=== PATIENT | female | born 1940 | race Caucasian/White ===

== ENCOUNTER 2018-01-22 09:49 | Emergency (ER) | payer MEDICARE, OTHER ==
[~2018-01-22] VITALS: Ht 170.2 cm; Wt 59.0 kg
--- OUTSIDE RECORDS SUMMARY | 2018-01-22 09:52 | XMS REPORT | Clinical Summary ---
Author Author [facility] Organization [facility] Address Unknown Phone Unavailable Care Team Providers Care Concession Attendant Name Role Phone Dharmesh Rivera MD PCP Allergies Comments Active Allergy Reactions Severity Noted Date Adhesive Tape-Silicones 12/08/2016 Medications End Date Status Medication Sig Dispensed Refills Start Date Active amIODarone (PACERONE) 200 Take 200 mg 0 MG tablet by mouth daily. Active simvastatin (ZOCOR) 10 MG Take 10 mg by 0 tablet mouth nightly. Active levothyroxine (SYNTHROID, Take 75 mcg 0 LEVOXYL) 75 mcg tablet by mouth every morning. Active nisoldipine (SULAR) 20 MG Take 17 mg by 0 24 hr tablet mouth daily. Active estrogens, conjugated, Take 0.3 mg 0 (PREMARIN) 0.3 MG tablet by mouth daily. Take daily for 21 days then do not take for 7 days. Active omega-3 acid ethyl esters Take 1 g by 0 (LOVAZA) 1 gram capsule mouth 2 (two) times a day. Active aspirin (ECOTRIN) 81 MG Take 81 mg by 0 enteric coated tablet mouth daily. Active acetaminophen (TYLENOL) Take 650 mg 0 500 MG tablet by mouth every 6 (six) hours as needed for mild pain. Active calcium carbonate (TUMS) Chew 1 tablet 0 200 mg calcium (500 mg) daily. chewable tablet Active esomeprazole (NexIUM) 20 Take 20 mg by 0 MG capsule mouth daily before breakfast. Active mirabegron 25 mg tablet Take by mouth 0 extended release 24 hr as needed. 11/20/2017 Discontinued mirabegron 25 mg tablet Take by 0 extended release 24 hr mouth. 11/24/2017 Discontinued gluc basurto/chondro basurto A/vit Take 2 0 C/Mn (GLUCOSAMINE 1500 tablets by COMPLEX ORAL) mouth 2 (two) times a day. Status Hospital, Clinic, or Ordered Dose Route Frequency Start End Date Other Facility Date Administered Medication Ended methylPREDNISolone 80 mg IAtc once 08/27/19 acetate (DEPO-MEDROL) 18 8 injection 80 mgIndications: Pain of both hip joints Ended bupivacaine (MARCAINE) 10 mg inj once 08/27/19 0.5 % (5 mg/mL) injection 18 8 10 mgIndications: Pain of both hip joints Active Problems Problem Noted Date DDD (degenerative disc disease), lumbar 11/04/2017 Trochanteric bursitis of both hips 08/28/2017 Pain of both hip joints 08/28/2017 Encounters Care Team Description Date Type Specialty Praveen Man MD 12/15/2017 Anesthesia General Surgery Event Krzysztof Amrstrong Jr., MD STEROID INJECTION, BILATERAL HIPS 12/15/2017 Surgery General Surgery Krzysztof Armstrong Jr., MD 12/15/2017 Hospital General Surgery Encounter Krzysztof Armstrong Jr., MD 12/11/2017 Hospital Radiology Encounter Krzysztof Armstrong Jr., MD Pre-op testing (Primary Dx); Trochanteric bursitis of both hips; Pain of both hip joints; DDD (degenerative disc disease), lumbar 12/11/2017 Pre-Admit Pre-Admission Testing Testing Appointment Laly Boone MA 12/04/2017 Telephone Orthopedic Surgery Krzysztof Armstrong Jr., MD DDD (degenerative disc disease), lumbar (Primary Dx); Trochanteric bursitis of both hips 11/26/2017 Office Visit Orthopedic Surgery Krzysztof Armstrong Jr., MD Trochanteric bursitis of both hips; Pain of both hip joints; DDD (degenerative disc disease), lumbar 11/13/2017 Hospital Radiology Encounter Krzysztof Armstrong Jr., MD Trochanteric bursitis of both hips; Pain of both hip joints; DDD (degenerative disc disease), lumbar 11/13/2017 Hospital Radiology Encounter Krzysztof Armstrong Jr., MD Trochanteric bursitis of both hips (Primary Dx); Pain of both hip joints; DDD (degenerative disc disease), lumbar 11/04/2017 Office Visit Ortho Sports Medicine Krzysztof Armstrong Jr., MD Pain of both hip joints (Primary Dx); Trochanteric bursitis of both hips 08/26/2017 Office Visit Ortho Sports Medicine after 01/21/2017 Family History Medical History Relation Name Comments Cancer Father Hyperlipidemia Father Relation Name Status Comments Father Social History Date Tobacco Use Types Packs/Day Years Used Never Smoker Smokeless Tobacco: Never Used Alcohol Use Drinks/Week oz/Week Comments No Sex Assigned at Date Recorded Not on file Industry Job Start Date Occupation Not on file Not on file Not on file Travel End Travel History Travel Start No recent travel history available. Last Filed Vital Signs Time Taken Vital Sign Reading 12/15/2017 8:38 AM CDT Blood Pressure 147/68 12/15/2017 8:38 AM CDT Pulse 73 12/15/2017 8:38 AM CDT Temperature 36.4 C (97.6 F) 12/15/2017 8:38 AM CDT Respiratory Rate 18 12/15/2017 8:38 AM CDT Oxygen Saturation 99% - Inhaled Oxygen - Concentration 12/15/2017 6:04 AM CDT Weight 59.5 kg (131 lb 3.2 oz) 12/15/2017 6:04 AM CDT Height 170.2 cm (5' 7") 12/15/2017 6:04 AM CDT Body Mass Index 20.55 Plan of Treatment Health Maintenance Due Date Last Done Comments SHINGRIX VACCINE (1 of 2) 1989 ZOSTER VACCINE 1999 PNEUMOCOCCAL 2004 POLYSACCHARIDE VACCINE AGE 65 AND OVER PNEUMOCOCCAL-13 2004 INFLUENZA VACCINE 10/08/2017 Procedures Comments Procedure Name Priority Date/Time Associated Diagnosis XR HIPS BILATERAL 2 VIEWS Routine 12/15/2017 7:59 AM CDT OR [place] < 1 HOUR Routine 12/15/2017 7:59 AM CDT INJECTION, HIP 12/15/2017 Trochanteric bursitis 7:25 AM CDT OA (osteoarthritis) of hip Special Needs NEEDS FLUORO, FRACTURE TABLE ESTIMATED GFR STAT 12/15/2017 6:20 AM CDT COMPREHENSIVE METABOLIC STAT 12/15/2017 PANEL 6:20 AM CDT PARTIAL THROMBOPLASTIN STAT 12/15/2017 TIME (PTT) 6:20 AM CDT PROTHROMBIN TIME WITH INR STAT 12/15/2017 6:20 AM CDT XR CHEST 2 VW Routine 12/11/2017 Pre-op testing 10:12 AM CDT HC COMPLETE BLD COUNT Routine 12/11/2017 Pre-op testing W/AUTO DIFF 9:40 AM CDT ECG 12-LEAD Routine 12/11/2017 Pre-op testing 9:36 AM CDT [place] ARTHROCENTESIS Routine 11/26/2017 Trochanteric bursitis of ASPIR&/INJ MAJOR JT/BURSA 11:00 AM CDT both hips W/O US MRI LUMBAR SPINE WO Routine 11/13/2017 Trochanteric bursitis of CONTRAST 3:07 PM CDT both hips Pain of both hip joints DDD (degenerative disc disease), lumbar MRI PELVIS WO CONTRAST Routine 11/13/2017 Trochanteric bursitis of 2:41 PM CDT both hips Pain of both hip joints DDD (degenerative disc disease), lumbar XR PELVIS 1 OR 2 VW Routine 11/04/2017 Pain of both hip joints 3:41 PM CDT XR LUMBAR SPINE 2 OR 3 VW Routine 11/04/2017 DDD (degenerative disc 3:41 PM CDT disease), lumbar [place] ARTHROCENTESIS Routine 08/26/2017 Trochanteric bursitis of ASPIR&/INJ MAJOR JT/BURSA 11:00 AM CDT both hips W/O US after 01/21/2017 Results * XR Hips Bilateral 2 Views (12/15/2017 7:59 AM CDT) Narrative Performed At EXAMINATION:XR HIPS BILATERAL 2 VIEWS [facility] CLINICAL HISTORY:Not provided COMPARISON:None. IMPRESSION: 1.Fluoroscopic spot images of the hips demonstrate bilateral hip joint space contrast. Hip joint space narrowing and osteophytosis bilaterally is compatible with degenerative change. [id number] Procedure Note Hm Interface, Radiology Results Incoming - 12/15/2017 10:00 AM CDT EXAMINATION: XR HIPS BILATERAL 2 VIEWS CLINICAL HISTORY: Not provided COMPARISON: None. IMPRESSION: 1. Fluoroscopic spot images of the hips demonstrate bilateral hip joint space contrast. Hip joint space narrowing and osteophytosis bilaterally is compatible with degenerative change. [id number] Performing Organization Address [facility] Phone Number [facility] [address] [place] [address] * OR [place] < 1 Hour (12/15/2017 7:59 AM CDT) Narrative Performed At EXAMINATION:OR FL 1 HOUR [facility] C-arm fluoroscopy was requested in OR.FLUORO TIME 0:15 IMPRESSION: Separate operative report will be issued by the physician performing the procedure. [id number] Procedure Note Hm Interface, Radiology Results Incoming - 12/15/2017 9:32 AM CDT EXAMINATION: OR FL 1 HOUR C-arm fluoroscopy was requested in OR. FLUORO TIME 0:15 IMPRESSION: Separate operative report will be issued by the physician performing the procedure. [id number] Performing Organization Address [facility] Phone Number [facility] [address] [place] [address] * Estimated GFR (12/15/2017 6:20 AM CDT) Estimated GFR 48 (A) mL/min/1.73 m2 [facility] OF Comment: PATHOLOGY AND [employer]atergoryUnitsInte GENOMIC MEDICINE rpretation G1 >=90 Normal or high G2 60-89Mildly decreased [id number] Mildly to moderately decreased F4h15-89 Moderately to severely decreased G4 15-29Severely decreased G5 <15Kidney failure The eGFR was calculated using the Chronic Kidney Disease Epidemiology Collaboration (CKD-EPI) equation. Interpretation is based on recommendations of the National Kidney Foundation-Kidney Disease Outcomes Quality Initiative (NKF-KDOQI) published in 2014. Specimen Plasma specimen Performing Organization Address [facility] Phone Number [facility] [id number] [place] [address] [place] [address] PATHOLOGY AND GENOMIC MEDICINE * Partial thromboplastin time, activated (12/15/2017 6:20 AM CDT) PTT 28.7 23.0 - 36.0 sec [facility] OF Comment: PATHOLOGY AND PTT therapeutic range for GENOMIC MEDICINE unfractionated heparin is 61.0-112.0 seconds which corresponds to Anti-Xa 0.3-0.7 U/ml. Specimen Blood Performing Organization Address [facility]/Zipcode Phone [place] [address] [place] [address] PATHOLOGY AND [employer] [facility] * Prothrombin time with INR (12/15/2017 6:20 AM CDT) Prothrombin time 12.4 12.0 - 15.0 sec [facility] OF PATHOLOGY AND GENOMIC MEDICINE INR 0.9 [facility] OF Comment: PATHOLOGY AND The International Normalized GENOMIC MEDICINE Ratio (INR) is a therapeutic monitoring tool for patients who are stable on oral anticoagulant therapy. An INR of 2.0-3.0 is suggested for deep vein thrombosis/pulmonary embolism. Specimen Blood Performing Organization Address [facility]/Zipcode Phone Number [place] [address] [place] [address] PATHOLOGY AND GENOMIC MEDICINE * Comprehensive metabolic panel (12/15/2017 6:20 AM CDT) Sodium 145 135 - 148 mEq/L [facility] OF PATHOLOGY AND GENOMIC MEDICINE Potassium 4.2 3.5 - 5.0 mEq/L [facility] OF PATHOLOGY AND GENOMIC MEDICINE Chloride 107 98 - 112 mEq/L [facility] OF PATHOLOGY AND GENOMIC MEDICINE CO2 28 24 - 31 mEq/L [facility] OF PATHOLOGY AND GENOMIC MEDICINE Anion gap 10@ANIO 7 - 15 mEq/L [facility] OF PATHOLOGY AND GENOMIC MEDICINE BUN 23 8 - 23 mg/dL [facility] OF PATHOLOGY AND GENOMIC MEDICINE Creatinine 1.10 (H) 0.50 - 0.90 mg/dL [facility] PATHOLOGY AND GENOMIC MEDICINE Glucose 98 65 - 99 mg/dL [facility] OF PATHOLOGY AND GENOMIC MEDICINE Calcium 10.3 (H) 8.8 - 10.2 mg/dL [facility] OF PATHOLOGY AND GENOMIC MEDICINE Protein 7.0 6.3 - 8.3 g/dL [facility] OF Comment: PATHOLOGY AND [place] GENOMIC MEDICINE 4.6-7.0 g/dL 1 week 4.4-7.6 g/dL 7 months-1year 5.1-7.3 g/dL 1-2 years5.6-7 .5 g/dL >3 years6.0-8 .0 g/dL 18-150 6.3-8.3 g/dL Albumin 4.3 3.5 - 5.0 g/dL [facility] OF PATHOLOGY AND GENOMIC MEDICINE A/G ratio 1.6 0.7 - 3.8 [facility] PATHOLOGY AND GENOMIC MEDICINE Alkaline phosphatase 41 35 - 104 U/L [facility] PATHOLOGY AND GENOMIC MEDICINE AST 20 10 - 35 U/L [facility] OF PATHOLOGY AND GENOMIC MEDICINE ALT 11 5 - 50 U/L [facility] OF PATHOLOGY AND GENOMIC MEDICINE Total bilirubin 0.3 0.0 - 1.2 mg/dL [facility] OF PATHOLOGY AND GENOMIC MEDICINE Specimen Plasma specimen Performing Organization Address [facility] Phone Number [address] [place] [address] PATHOLOGY AND GENOMIC MEDICINE * XR Chest 2 Vw (12/11/2017 10:12 AM CDT) Narrative Performed At EXAMINATION:XR CHEST 2 VW [facility] CLINICAL HISTORY:Z01.818 Encounter for other preprocedural examination, pre op COMPARISON:None IMPRESSION: No acute abnormality 2 view chest The lungs are clear. The heart is not enlarged. Minimal vascular ectasia. Atherosclerosis The bony structures are within normal limits. [id number] Procedure Note Interface, Radiology Results Incoming - 12/11/2017 10:35 AM CDT EXAMINATION: XR CHEST 2 VW CLINICAL HISTORY: Z01.818 Encounter for other preprocedural examination, pre op COMPARISON: None IMPRESSION: No acute abnormality 2 view chest The lungs are clear. The heart is not enlarged. Minimal vascular ectasia. Atherosclerosis The bony structures are within normal limits. [id number] Performing Organization Address City/[facility]/Zipcode Phone Number [facility] [address] [place] [address] * CBC with platelet and differential (12/11/2017 9:40 AM CDT) WBC 6.09 4.50 - 11.00 k/uL [facility] OF PATHOLOGY AND GENOMIC MEDICINE RBC 3.63 (L) 4.20 - 5.50 m/uL [facility] OF PATHOLOGY AND GENOMIC MEDICINE HGB 10.8 (L) 12.0 - 16.0 g/dL [facility] OF PATHOLOGY AND GENOMIC MEDICINE HCT 33.6 (L) 37.0 - 47.0 % [facility] OF PATHOLOGY AND GENOMIC MEDICINE MCV 92.6 82.0 - 100.0 fL [facility] OF PATHOLOGY AND GENOMIC MEDICINE MCH 29.8 27.0 - 34.0 pg [facility] OF PATHOLOGY AND GENOMIC MEDICINE MCHC 32.1 31.0 - 37.0 g/dL [facility] OF PATHOLOGY AND GENOMIC MEDICINE RDW - SD 47.3 37.0 - 55.0 fL [facility] OF PATHOLOGY AND GENOMIC MEDICINE MPV 9.4 8.8 - 13.2 fL [facility] OF PATHOLOGY AND GENOMIC MEDICINE Platelet count 339 150 - 400 k/uL [facility] OF PATHOLOGY AND GENOMIC MEDICINE Nucleated RBC 0.00 /100 WBC [facility] OF PATHOLOGY AND GENOMIC MEDICINE Neutrophils 62.7 39.0 - 69.0 % [facility] OF PATHOLOGY AND GENOMIC MEDICINE Lymphocytes 22.0 (L) 25.0 - 45.0 % [facility] OF PATHOLOGY AND GENOMIC MEDICINE Monocytes 9.5 0.0 - 10.0 % [facility] PATHOLOGY AND GENOMIC MEDICINE Eosinophils 4.4 0.0 - 5.0 % [facility] PATHOLOGY AND GENOMIC MEDICINE Basophils 1.1 (H) 0.0 - 1.0 % [facility] OF PATHOLOGY AND GENOMIC MEDICINE Specimen Blood Performing Organization Address City/State/Zipcode Phone Number [facility] [address] [place] [address] PATHOLOGY AND GENOMIC MEDICINE * ECG 12 lead (12/11/2017 9:36 AM CDT) Ventricular rate 64 [facility] Atrial rate 64 [facility] IL interval 200 [facility] QRSD interval 160 [facility] QT interval 450 [facility] QTC interval 464 [facility] P axis 1 76 [facility] QRS axis 1 86 [facility] T wave axis 7 [facility] EKG impression Normal sinus rhythm-Right [facility] bundle branch block-Septal infarct , age undetermined-T wave abnormality, consider inferior ischemia-Abnormal ECG-No previous ECGs available- Performing Organization Address City/State/Zipcode Phone Number [facility] [address] [place] [address] * Large Joint Arthrocentesis (11/26/2017 11:00 AM CDT) Narrative Performed At Krzysztof Armstrong Jr., MD 12/08/20177:10 PM Large Joint Arthrocentesis Consent given by: patient Site marked: site marked Timeout: Immediately prior to procedure a time out was called to verify the correct patient, procedure, equipment, contracting support specialist and site/side marked as required Supporting Documentation Indications: pain Procedure Details Preparation: Patient was prepped and draped in the usual sterile fashion Location: hip - Bilateral greater trochanteric bursa Right side: Needle size: 22 G Approach: lateral Right hip medications administered: 40 mg methylPREDNISolone acetate 40 mg/mL; 1 mL bupivacaine 0.5 % (5 mg/mL) Patient tolerance: patient tolerated the procedure well with no immediate complications Left side: Needle size: 22 G Approach: lateral Left hip medications administered: 40 mg methylPREDNISolone acetate 40 mg/mL; 1 mL bupivacaine 0.5 % (5 mg/mL) Patient tolerance: patient tolerated the procedure well with no immediate complications * MRI Lumbar Spine Wo Contrast (11/13/2017 3:07 PM CDT) Narrative Performed At EXAMINATION:MRI LUMBAR SPINE WO CONTRAST [facility] CLINICAL HISTORY:M70.61 Trochanteric bursitisright hip, M70.62 Trochanteric bursitisleft hip, hip pain bilateral COMPARISON:None. FINDINGS: There is a scoliosis of lumbar spine moderately severe in degree which is convex toward the left. Vertebral heights and signal are mostly preserved with mild compression of the L4 lower endplate to the right which appears to be result of the scoliosis. The conus medullaris and cauda equina are preserved. There is disc narrowing greatest at the L4-5 and L5-S1 level. Degenerative signal changes are present in the vertebral throughout the lumbar region. L1-2: The foramina are patent. The disc margin is smooth. The central canal and lateral recesses are preserved facets are moderately hypertrophic. L2-3: The neural foramina are patent bilaterally. The disc margin is smooth. Central canal and lateral recesses are maintained. Facets are markedly hypertrophic. L3-4: The foramina are patent bilaterally. There is a mild diffuse disc protrusion. The central canal and lateral recesses appear preserved there is gross dorsal facet and ligamentous hypertrophy. L4-5: The foramina are patent although that to the left is narrowed peripherally by the scoliotic curve. There is a mild osteophytic ridge at this level with borderline central canal which measures approximately 11 to 12 mm. There is narrowing of the right lateral recess related to gross dorsal facet and ligamentous hypertrophy. The left lateral recess is narrowed as well to lesser degree. Facets are grossly hypertrophic. L5-S1: There is mild narrowing of the left foramen bilateral disc protrusion/osteophyte with a mild central disc protrusion as well. There is gross dorsal facet and ligamentous hypertrophy with narrowing of the lateral recesses greater to the left IMPRESSION: 1. Scoliosis of lumbar spine moderate degree convex to the left. 2. Disc narrowing at the L4-5 and L5-S1 levels. 3. Central and to the left protrusion at the L5-S1 level with narrowing of the foramen to the left at the L5-S1 level. 4. Borderline central canal and lateral recess narrowing greater to the right at the L4-5 level related to facet hypertrophy and a slightly asymmetric disc protrusion greater to the left . [id number] Procedure Note Hm Interface, Radiology Results Incoming - 11/13/2017 5:45 PM CDT EXAMINATION: MRI LUMBAR SPINE WO CONTRAST CLINICAL HISTORY: M70.61 Trochanteric bursitis right hip, M70.62 Trochanteric bursitis left hip, hip pain bilateral COMPARISON: None. FINDINGS: There is a scoliosis of lumbar spine moderately severe in degree which is convex toward the left. Vertebral heights and signal are mostly preserved with mild compression of the L4 lower endplate to the right which appears to be result of the scoliosis. The conus medullaris and cauda equina are preserved. There is disc narrowing greatest at the L4-5 and L5-S1 level. Degenerative signal changes are present in the vertebral throughout the lumbar region. L1-2: The foramina are patent. The disc margin is smooth. The central canal and lateral recesses are preserved facets are moderately hypertrophic. L2-3: The neural foramina are patent bilaterally. The disc margin is smooth. Central canal and lateral recesses are maintained. Facets are markedly hypertrophic. L3-4: The foramina are patent bilaterally. There is a mild diffuse disc protrusion. The central canal and lateral recesses appear preserved there is gross dorsal facet and ligamentous hypertrophy. L4-5: The foramina are patent although that to the left is narrowed peripherally by the scoliotic curve. There is a mild osteophytic ridge at this level with borderline central canal which measures approximately 11 to 12 mm. There is narrowing of the right lateral recess related to gross dorsal facet and ligamentous hypertrophy. The left lateral recess is narrowed as well to lesser degree. Facets are grossly hypertrophic. L5-S1: There is mild narrowing of the left foramen bilateral disc protrusion/osteophyte with a mild central disc protrusion as well. There is gross dorsal facet and ligamentous hypertrophy with narrowing of the lateral recesses greater to the left IMPRESSION: 1. Scoliosis of lumbar spine moderate degree convex to the left. 2. Disc narrowing at the L4-5 and L5-S1 levels. 3. Central and to the left protrusion at the L5-S1 level with narrowing of the foramen to the left at the L5-S1 level. 4. Borderline central canal and lateral recess narrowing greater to the right at the L4-5 level related to facet hypertrophy and a slightly asymmetric disc protrusion greater to the left . [id number] Performing Organization Address City/State/Zipcode Phone Number [facility] [address] [place] [address] * MRI Pelvis Wo Contrast (11/13/2017 2:41 PM CDT) Narrative Performed At EXAMINATION:MRI PELVIS WO CONTRAST [facility] CLINICAL HISTORY:M70.61 Trochanteric bursitisright hip, M70.62 Trochanteric bursitisleft hip, Hip pain TECHNIQUE: Multiplanar multisequence MR images of the pelvis were obtained without contrast. The lack of intravenous contrast reduces the sensitivity of the examination. COMPARISON:None. FINDINGS: The joint spaces are narrowed diffusely bilaterally this is fairly symmetric. There is no evidence of AVN or occult fracture or other acute bony findings. There is a small area of low signal on T1 and T2-weighted images at the base of the greater trochanter on the right and a mixed signal lesion just above the roof of the acetabulum in the ileum on the left. This latter lesion is also low signal on both T1 and T2-weighted images measuring approximately 7 to 8 mm. This is of uncertain significance. It is not readily visible on the AP pelvis done November 04, 2017 although may be vaguely sclerotic. There is a scoliosis of the lumbar spine Musculature: The gluteal muscles are moderately atrophic bilaterally. However this is symmetric. There is fraying and degenerative signal at the gluteus minimus and medius attachments to the greater trochanter of the femur that on the right slightly greater than that on the left. The adductor muscles demonstrate no focal findings on either side. The iliopsoas muscles and tendons appear intact to limits of visualization. Miscellaneous findings: There are bilateral small joint effusions which are symmetric. There is also a moderate amount of fluid in the trochanteric bursae greater on the left consistent with trochanteric bursitis in the proper clinical setting. No additional findings of significance are visualized. IMPRESSION: 1. Changes consistent with bilateral trochanteric bursitis with bilateral trochanteric bursal effusions slightly greater on the left. 2. Fraying of the gluteus minimus and medius at their greater trochanter attachments although no high-grade tear is noted on either side. 3. Moderately severe arthritic changes about both hips with fairly symmetric joint space narrowing mild osteophyte formation. 4. Small low signal lesion in the bony pelvis just cranial to the acetabular roof on the left in the 7 to 8 mm range and a tiny probable bone island in the right femur proximally a bone scan might be helpful in this patient [id number] Procedure Note Hm Interface, Radiology Results Incoming - 11/13/2017 5:57 PM CDT EXAMINATION: MRI PELVIS WO CONTRAST CLINICAL HISTORY: M70.61 Trochanteric bursitis right hip, M70.62 Trochanteric bursitis left hip, Hip pain TECHNIQUE: Multiplanar multisequence MR images of the pelvis were obtained without contrast. The lack of intravenous contrast reduces the sensitivity of the examination. COMPARISON: None. FINDINGS: The joint spaces are narrowed diffusely bilaterally this is fairly symmetric. There is no evidence of AVN or occult fracture or other acute bony findings. There is a small area of low signal on T1 and T2-weighted images at the base of the greater trochanter on the right and a mixed signal lesion just above the roof of the acetabulum in the ileum on the left. This latter lesion is also low signal on both T1 and T2-weighted images measuring approximately 7 to 8 mm. This is of uncertain significance. It is not readily visible on the AP pelvis done November 04, 2017 although may be vaguely sclerotic. There is a scoliosis of the lumbar spine Musculature: The gluteal muscles are moderately atrophic bilaterally. However this is symmetric. There is fraying and degenerative signal at the gluteus minimus and medius attachments to the greater trochanter of the femur that on the right slightly greater than that on the left. The adductor muscles demonstrate no focal findings on either side. The iliopsoas muscles and tendons appear intact to limits of visualization. Miscellaneous findings: There are bilateral small joint effusions which are symmetric. There is also a moderate amount of fluid in the trochanteric bursae greater on the left consistent with trochanteric bursitis in the proper clinical setting. No additional findings of significance are visualized. IMPRESSION: 1. Changes consistent with bilateral trochanteric bursitis with bilateral trochanteric bursal effusions slightly greater on the left. 2. Fraying of the gluteus minimus and medius at their greater trochanter attachments although no high-grade tear is noted on either side. 3. Moderately severe arthritic changes about both hips with fairly symmetric joint space narrowing mild osteophyte formation. 4. Small low signal lesion in the bony pelvis just cranial to the acetabular roof on the left in the 7 to 8 mm range and a tiny probable bone island in the right femur proximally a bone scan might be helpful in this patient [id number] Performing Organization Address [facility] Phone Number [facility] [address] [place] [address] * XR Pelvis 1 Or 2 Vw (11/04/2017 3:41 PM CDT) Narrative Performed At [facility] Clinical : hip pain Finding: AP pelvis weight bearing shows mild hip OA. Extensive degenerative scoliosis can be seen at the lowest segments of the lumbar spine. 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 Performing Organization Address [facility] Phone Number [facility] [address] [place] [address] * XR Lumbar Spine 2 Or 3 Vw (11/04/2017 3:41 PM CDT) Impressions Performed At Extensive changes in the lumbar spine at the above levels. [facility] Narrative Performed At [facility] CLINICAL: hip and back pain FINDINGS: AP and lateral views of the lumbar spine. The bones are intact. There is however irregularity at the superior endplate of L2 possibly old injury.Additionally there is narrowing at L3/4 which is minimal and L4/5 which is severe and near complete loss, and significant at L5/1.Facet OA noted as well. Performing Organization Address [facility] Phone Number [employer] [address] [place] [address] * Large Joint Arthrocentesis (08/26/2017 11:00 AM CDT) Narrative Performed At Krzysztof Armstrong Jr., MD 08/28/20176:14 PM Large Joint Arthrocentesis Consent given by: patient Site marked: site marked Timeout: Immediately prior to procedure a time out was called to verify the correct patient, procedure, equipment, contracting support specialist and site/side marked as required Supporting Documentation Indications: pain Procedure Details Preparation: Patient was prepped and draped in the usual sterile fashion Location: hip - Bilateral greater trochanteric bursa Right side: Needle size: 22 G Right hip medications administered: 40 mg methylPREDNISolone acetate 40 mg/mL; 1 mL bupivacaine 0.5 % (5 mg/mL) Patient tolerance: patient tolerated the procedure well with no immediate complications Left side: Needle size: 22 G Left hip medications administered: 40 mg methylPREDNISolone acetate 40 mg/mL; 1 mL bupivacaine 0.5 % (5 mg/mL) Patient tolerance: patient tolerated the procedure well with no immediate complications after 01/21/2017 Insurance Payer Benefit Subscriber ID Type Phone Address Plan / Group MEDICARE MEDICARE xxxxxxxxxx Medicare [place], [place] PART A AND B xxxxxxxxx-xx FOR LIFE Advance Directives Patient has advance care planning documents on file. For more information, aaron silva contact: Jaciel Melendrez [address] [place] [address]
[2018-01-22] MEDS ORDERED: ACETAMINOPHEN 325 MG TAB PO ONE (10:30)
[2018-01-22] MEDS ORDERED: AUGMENTIN 500-1 EACH PO (10:43)
--- NOTE | 2018-01-22 11:01 | Diagnostic Imaging Report ---
PROCEDURE:X-RAY LEFT HUMERUS, TWO OR MORE VIEWS COMPARISON:None. INDICATIONS:LEFT UPPER ARM PAIN FROM FALL FINDINGS: Mild osteopenia. No acute, displaced fracture or dislocation. No lytic or blastic lesion. Mild widening of the a.c. joint, which measures approximately 6-7 mm. Soft tissues are grossly unremarkable. Visualized portions of the left lung are clear. CONCLUSION: No acute displaced fracture or dislocation. Mild widening of the a.c. joint. Correlate for point tenderness. This may be normal, if bilateral. Contralateral shoulder views may be obtained for evaluation, if clinically indicated. Chris Hardwick M.D. Dictated by: Chris Hardwick M.D. on 01/22/2018 at 11:11 Electronically approved by: Chris Hardwick M.D. on 01/22/2018 at 11:11
--- NOTE | 2018-01-22 11:51 | Diagnostic Imaging Report ---
Exams: Head, maxillofacial and cervical spine CTs without IV contrast History: Trauma, fall Comparison studies: None Technique: Axial images were obtained to the vertex and through the cervical spine and maxilla facial region. Coronal and sagittal images reconstructed from the axial data. Dose modulation, iterative reconstruction, and/or weight based adjustment of the mA/kV was utilized to reduce the radiation dose to as low as reasonably achievable. Intravenous contrast: None Findings: Scalp: No abnormalities. Bones: No fractures, blastic or lytic lesions. Brain sulci: Mildly prominent but age appropriate.. Ventricles: Normal in size and configuration. No hydrocephalus. Parenchyma: No mass, acute hemorrhage or acute or chronic cortical vascular insults. A few scattered hypodensities in the supratentorial white matter are nonspecific but most compatible with chronic microvascular ischemic changes. Sellar/suprasellar region: No abnormalities Craniocervical junction: Patent foramen magnum. No Chiari one malformation. Maxillofacial CT: Soft tissues: Moderate hematoma in the left inferolateral premaxillary soft tissues. Mild reactive changes in the left retromaxillary soft tissues may reflect hematoma or possibly local Bones: A linear lucency along the anterolateral wall of the left maxillary sinus, may represent nondisplaced fracture versus prominent vascular channel. Incidental torus mandibularis. Orbits: Globes: Intact Extra or intraconal abnormalities: None. Paranasal sinuses: Chronic inflammatory changes in the left maxillary sinus which is nearly completely opacified and contains inspissated hyperdense secretions which are also partially calcified. 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 Cervical spine CT: Fractures: None. Soft tissue injuries: None. Atlantoaxial articulation: Intact with moderate degenerative changes. There is mild asymmetry of the lateral atlantal dental intervals which may be due to advanced degenerative changes. Alignment: Straightened cervical curvature. Approximately 3 mm anterolisthesis of C4 on C5 and 4 mm anterolisthesis of C6 on C7 which may be degenerative in etiology. Cervicomedullary junction: No abnormalities. The foramen magnum is patent. Soft tissues: No gross acute abnormalities. Vertebrae: No fractures, infection or neoplasm. Degenerative changes: Moderate degenerative changes at the atlantodental, left C1-C2 lateral mass and right atlantooccipital articulations Multilevel disc degeneration, moderate from C2 to C4 and severe from C4 to C7. Anterolisthesis of C4 on C5 with associated uncovered disc/disc osteophyte complex results in mild canal stenosis. Mild canal stenosis at C5-C6 due to a disc osteophyte complex measuring degrees of multilevel moderate to severe facet arthrosis. The left C2-C3 and right C3-C4 facets are fused. Multilevel uncovertebral facet arthrosis result in multilevel foraminal stenosis (mild right at C3-C4 moderate left and mild right at C4-C5, moderate bilaterally at C5-C6 in mild right at C6-C7). Incidental findings: Mild scarring at the lung apices. Atherosclerotic calcifications in the carotid siphons. Mild chronic inflammatory changes at the left mastoid tip. IMPRESSION: Head CT: 1. No acute abnormalities. 2. Mild age-appropriate generalized volume loss. 3. Mild microvascular ischemic changes. Maxillofacial CT: 1. Left mitchell-maxillary soft tissue tissue hematoma. 2. Lucency along the inferior lateral wall the left maxillary sinus may reflect prominent perivascular channel or less likely nondisplaced fracture. 3. Chronic inflammatory changes in the left maxillary sinus. Mild soft tissue changes in the left retromaxillary fat may reflect regional extension of soft tissue hematoma or changes related to sinus disease Cervical spine CT: 1. No cervical spine fracture. 2. Anterolisthesis of C4 on C5 and C6 on C7 are most likely degenerative in etiology. 3. Additional advanced degenerative changes as described. 4. Cannot adequately evaluate ligament, spinal cord and or vascular abnormalities on the basis of this exam. Signed by: Dr. Fortino Guerrero M.D. on 01/22/2018 11:47 AM
[2018-01-22] MEDS ORDERED: TYLENOL WITH C1 EACH PO (12:30)
[2018-01-22] MEDS ORDERED: ACETAMINOPHEN/CODEINE 300MG - 30MG TAB PO ONE (12:30)
[2018-01-22 12:58] VITALS: BP 150/85
[2018-02-11] MEDS ORDERED: PREMARIN0.625 MG PO (14:47)
[2018-02-11] MEDS ORDERED: PACERONE200 MG (14:47)
[2018-02-11] MEDS ORDERED: CALCIUM (14:47)
[2018-02-11] MEDS ORDERED: LOVAZA1 GM (14:47)
[2018-02-11] MEDS ORDERED: NEXIUM40 MG (14:47)
[2018-02-11] MEDS ORDERED: LEVOTHYROXINE75 MCG PO (14:47)
[2018-02-11] MEDS ORDERED: TYLENOL ARTHRITIS (14:47)
[2018-02-11] MEDS ORDERED: GLUCOSAMINE1000 MG (14:47)
[2018-02-11] MEDS ORDERED: NISOLDIPINE17 MG (14:47)
[2018-02-11] MEDS ORDERED: ASPIRIN81 MG (14:47)
[2018-02-11] MEDS ORDERED: PACERONE100 MG (14:47)
[2018-02-11] MEDS ORDERED: SIMVASTATIN20 MG PO (14:47)
== END 2018-01-22 13:00 | disposition home or self-care (01) ==
LOC: ER 09:49
DX: S01.511A Laceration without foreign body of lip, initial encounter (principal); S00.531A Contusion of lip, initial encounter; S00.12XA Contusion of left eyelid and periocular area, initial encounter; S40.022A Contusion of left upper arm, initial encounter; W01.0XXA Fall on same level from slipping, tripping and stumbling without subsequent striking against object, initial encounter; Y93.01 Activity, walking, marching and hiking; Y92.008 Other place in unspecified non-institutional (private) residence as the place of occurrence of the external cause; I10 Essential (primary) hypertension
CPT/HCPCS: 70450; 70486; 72125; 99283

== ENCOUNTER → 2018-02-17 | Day surgery (SDC) | payer MEDICARE, OTHER ==
[~2018-02-17] MED LIST: ASPIRIN81 MG; AUGMENTIN 500-1 EACH PO; CALCIUM; CEFAZOLIN SOD 1 GM/D5W 50ML 50 ML IV ONE; GLUCOSAMINE1000 MG; LEVOTHYROXINE75 MCG PO; LIDOCAINE 1% W/EPINEPHRINE 20 ML VIAL ONE; LIDOCAINE HCL 2% LOCAL INJ 5 ML SDV VIAL INJ ONE; LOVAZA1 GM; NEXIUM40 MG; NISOLDIPINE17 MG; PACERONE100 MG; PACERONE200 MG; PREMARIN0.625 MG PO; PROPOFOL IV EMULSION 10 MG/ML 20 ML VIAL ONE; SIMVASTATIN20 MG PO; TYLENOL ARTHRITIS; TYLENOL WITH C1 EACH PO
--- OUTSIDE RECORDS SUMMARY | 2018-02-17 07:53 | XMS REPORT | Clinical Summary ---
Author Author [facility] Address Unknown Phone Unavailable Care Team Providers Care Jar Capper Name Role Phone Dharmesh Rivera MD PCP [...] MD 12/15/2017 Anesthesia General Surgery Event Krzysztof Armstrong Jr., MD STEROID INJECTION, BILATERAL HIPS 12/15/2017 [...] 08/26/2017 Office Visit Ortho Sports Medicine after 02/16/2017 Family History Medical History Relation Name Comments [...] Routine 12/11/2017 Pre-op testing 9:36 AM CDT MD ARTHROCENTESIS Routine 11/26/2017 Trochanteric bursitis of ASPIR&/INJ [...] (degenerative disc 3:41 PM CDT disease), lumbar MD ARTHROCENTESIS Routine 08/26/2017 Trochanteric bursitis of ASPIR&/INJ MAJOR JT/BURSA 11:00 AM CDT both hips W/O US after 02/16/2017 Results * XR Hips Bilateral 2 Views (12/15/2017 7:59 AM CDT) Narrative Performed At EXAMINATION:XR HIPS BILATERAL 2 VIEWS HM [facility] CLINICAL HISTORY:Not provided COMPARISON:None. IMPRESSION: 1.Fluoroscopic spot images of the hips demonstrate bilateral hip joint space contrast. Hip joint space narrowing and osteophytosis bilaterally is compatible with degenerative change. [id number] Procedure Note Hm Interface, Radiology Results Incoming - 12/15/2017 10:00 AM CDT EXAMINATION: XR HIPS BILATERAL 2 VIEWS CLINICAL HISTORY: Not provided COMPARISON: None. IMPRESSION: 1. Fluoroscopic spot images of the hips demonstrate bilateral hip joint space contrast. Hip joint space narrowing and osteophytosis bilaterally is compatible with degenerative change. [id number] Performing Organization Address [facility] Phone Number [facility] [address] [place] [address] * OR [place] < 1 Hour (12/15/2017 [...] performing the procedure. [id number] Performing Organization Address [facility] Phone Number [facility] [address] [place] [address] * Estimated GFR (12/15/2017 6:20 AM CDT) Estimated GFR 48 (A) mL/min/1.73 m2 [facility] DEPARTMENT OF Comment: PATHOLOGY AND CatergoryUnitsInte GENOMIC MEDICINE rpretation G1 >=90 Normal or high G2 60-89Mildly decreased O6z02-45 Mildly to moderately decreased G3n89-32 Moderately to severely decreased G4 15-29Severely decreased G5 <15Kidney failure The eGFR was calculated using the Chronic Kidney Disease Epidemiology Collaboration (CKD-EPI) equation. Interpretation is based on recommendations of the National Kidney Foundation-Kidney Disease Outcomes Quality Initiative (NKF-KDOQI) published in 2014. Specimen Plasma specimen Performing Organization Address [facility] Phone Number [facility] DEPARTMENT [id number] [place] [address] [place] [address] PATHOLOGY AND GENOMIC MEDICINE * Partial thromboplastin time, activated (12/15/2017 6:20 AM CDT) PTT 28.7 23.0 - 36.0 sec [facility] DEPARTMENT OF Comment: PATHOLOGY AND PTT therapeutic range for GENOMIC MEDICINE unfractionated heparin is 61.0-112.0 seconds which corresponds to Anti-Xa 0.3-0.7 U/ml. Specimen Blood Performing Organization Address [facility]/Zipcode Phone Number [facility] [place] [address] [place] [address] PATHOLOGY AND [employer] [facility] * Prothrombin time with INR (12/15/2017 6:20 AM CDT) Prothrombin time 12.4 12.0 - 15.0 sec [facility] DEPARTMENT OF PATHOLOGY AND GENOMIC MEDICINE INR 0.9 [facility] DEPARTMENT OF Comment: PATHOLOGY AND The International Normalized GENOMIC MEDICINE Ratio (INR) is a therapeutic monitoring tool for patients who are stable on oral anticoagulant therapy. An INR of 2.0-3.0 is suggested for deep vein thrombosis/pulmonary embolism. Specimen Blood Performing Organization Address [facility]/Zipcode Phone Number [place] [address] [place] [address] PATHOLOGY AND GENOMIC MEDICINE * Comprehensive metabolic panel (12/15/2017 6:20 AM CDT) Sodium 145 135 - 148 mEq/L [facility] DEPARTMENT OF PATHOLOGY AND GENOMIC MEDICINE Potassium 4.2 3.5 - 5.0 mEq/L [facility] DEPARTMENT OF PATHOLOGY AND GENOMIC MEDICINE Chloride 107 98 - 112 mEq/L [facility] DEPARTMENT OF PATHOLOGY AND GENOMIC MEDICINE CO2 28 24 - 31 mEq/L [facility] DEPARTMENT OF PATHOLOGY AND GENOMIC MEDICINE Anion gap 10@ANIO 7 - 15 mEq/L [facility] DEPARTMENT OF PATHOLOGY AND GENOMIC MEDICINE BUN 23 8 - 23 mg/dL [facility] DEPARTMENT OF PATHOLOGY AND GENOMIC MEDICINE Creatinine 1.10 (H) 0.50 - 0.90 mg/dL [facility] DEPARTMENT OF PATHOLOGY AND GENOMIC MEDICINE Glucose 98 65 - 99 mg/dL [facility] DEPARTMENT OF PATHOLOGY AND GENOMIC MEDICINE Calcium 10.3 (H) 8.8 - 10.2 mg/dL [facility] DEPARTMENT OF PATHOLOGY AND GENOMIC MEDICINE Protein 7.0 6.3 - 8.3 g/dL [facility] DEPARTMENT OF Comment: PATHOLOGY AND [place] GENOMIC MEDICINE 4.6-7.0 g/dL 1 week 4.4-7.6 g/dL 7 months-1year 5.1-7.3 g/dL 1-2 years5.6-7 .5 g/dL >3 years6.0-8 .0 g/dL 18-150 6.3-8.3 g/dL Albumin 4.3 3.5 - 5.0 g/dL [facility] DEPARTMENT OF PATHOLOGY AND GENOMIC MEDICINE A/G ratio 1.6 0.7 - 3.8 [facility] DEPARTMENT OF PATHOLOGY AND GENOMIC MEDICINE Alkaline phosphatase 41 35 - 104 U/L [facility] DEPARTMENT OF PATHOLOGY AND GENOMIC MEDICINE AST 20 10 - 35 U/L [facility] DEPARTMENT OF PATHOLOGY AND GENOMIC MEDICINE ALT 11 5 - 50 U/L [facility] DEPARTMENT OF PATHOLOGY AND GENOMIC MEDICINE Total bilirubin 0.3 0.0 - 1.2 mg/dL [facility] DEPARTMENT OF PATHOLOGY AND GENOMIC MEDICINE Specimen Plasma specimen Performing Organization Address City/[facility] Phone Number [address] [place] [address] PATHOLOGY AND GENOMIC MEDICINE * XR Chest 2 Vw (12/11/2017 10:12 AM CDT) Narrative Performed At EXAMINATION:XR CHEST 2 VW [facility] CLINICAL HISTORY:Z01.818 Encounter for other preprocedural examination, pre op COMPARISON:None IMPRESSION: No acute abnormality 2 view chest The lungs are clear. The heart is not enlarged. Minimal vascular ectasia. Atherosclerosis The bony structures are within normal limits. [id number] Procedure Note Interface, Radiology Results Incoming - 12/11/2017 10:35 AM CDT EXAMINATION: XR CHEST 2 VW CLINICAL HISTORY: Z01.818 Encounter for other preprocedural examination, pre op COMPARISON: None IMPRESSION: No acute abnormality 2 view chest The lungs are clear. The heart is not enlarged. Minimal vascular ectasia. Atherosclerosis The bony structures are within normal limits. [id number] Performing Organization Address City/[facility]/Zipcode Phone Number [facility] [address] [place] [address] * CBC with platelet and differential (12/11/2017 9:40 AM CDT) WBC 6.09 4.50 - 11.00 k/uL [facility] DEPARTMENT OF PATHOLOGY AND GENOMIC MEDICINE RBC 3.63 (L) 4.20 - 5.50 m/uL [facility] DEPARTMENT OF PATHOLOGY AND GENOMIC MEDICINE HGB 10.8 (L) 12.0 - 16.0 g/dL [facility] DEPARTMENT OF PATHOLOGY AND GENOMIC MEDICINE HCT 33.6 (L) 37.0 - 47.0 % [facility] DEPARTMENT OF PATHOLOGY AND GENOMIC MEDICINE MCV 92.6 82.0 - 100.0 fL [facility] DEPARTMENT OF PATHOLOGY AND GENOMIC MEDICINE MCH 29.8 27.0 - 34.0 pg [facility] DEPARTMENT OF PATHOLOGY AND GENOMIC MEDICINE MCHC 32.1 31.0 - 37.0 g/dL [facility] DEPARTMENT OF PATHOLOGY AND GENOMIC MEDICINE RDW - SD 47.3 37.0 - 55.0 fL [facility] OF PATHOLOGY AND GENOMIC MEDICINE MPV 9.4 8.8 - 13.2 fL [facility] DEPARTMENT OF PATHOLOGY AND GENOMIC MEDICINE Platelet count 339 150 - 400 k/uL [facility] DEPARTMENT OF PATHOLOGY AND GENOMIC MEDICINE Nucleated RBC 0.00 /100 WBC [facility] DEPARTMENT OF PATHOLOGY AND GENOMIC MEDICINE Neutrophils 62.7 39.0 - 69.0 % [facility] DEPARTMENT OF PATHOLOGY AND GENOMIC MEDICINE Lymphocytes 22.0 (L) 25.0 - 45.0 % [facility] DEPARTMENT OF PATHOLOGY AND GENOMIC MEDICINE Monocytes 9.5 0.0 - 10.0 % [facility] DEPARTMENT OF PATHOLOGY AND GENOMIC MEDICINE Eosinophils 4.4 0.0 - 5.0 % [facility] DEPARTMENT OF PATHOLOGY AND GENOMIC MEDICINE Basophils 1.1 (H) 0.0 - 1.0 % [facility] DEPARTMENT OF PATHOLOGY AND GENOMIC MEDICINE Specimen Blood Performing Organization Address City/State/Zipcode Phone Number [facility] [address] [place] [address] PATHOLOGY AND GENOMIC MEDICINE * ECG 12 lead (12/11/2017 9:36 AM CDT) Ventricular rate 64 [facility] Atrial rate 64 [facility] MD interval 200 [facility] QRSD interval 160 [...] available- Performing Organization Address City/State/Zipcode Phone Number [facility] [address] [place] [address] * Large Joint Arthrocentesis (11/26/2017 11:00 AM CDT) Narrative Performed At Krzysztof Armstrong Jr., MD 12/08/20177:10 PM Large Joint Arthrocentesis Consent given by: patient Site marked: site marked Timeout: Immediately prior to procedure a time out was called to verify the correct patient, procedure, equipment, decision support manager and site/side marked as required Supporting Documentation [...] disc protrusion greater to the left . [id number] Procedure Note Hm Interface, Radiology Results Incoming [...] disc protrusion greater to the left . [id number] Performing Organization Address City/State/Zipcode Phone Number [facility] [address] [place] [address] * MRI Pelvis Wo Contrast (11/13/2017 2:41 [...] scan might be helpful in this patient [id number] Procedure Note Hm Interface, Radiology Results Incoming [...] scan might be helpful in this patient [id number] Performing Organization Address [facility] Phone Number [employer] [address] [place] [address] * XR Pelvis 1 Or 2 Vw (11/04/2017 3:41 PM CDT) [facility]arrative [facility] Clinical : hip pain Finding: AP pelvis weight bearing shows mild hip OA. Extensive degenerative scoliosis can be seen at the lowest segments of the lumbar spine. 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 Performing Organization Address [facility] Phone Number [facility] [address] [place] [address] * XR Lumbar Spine 2 Or 3 [...] OA noted as well. Performing Organization Address [facility] Hospital[facility] Phone Number [employer] [address] [place] [address] * Large Joint Arthrocentesis (08/26/2017 11:00 AM CDT) Narrative Performed At Krzysztof Armstrong Jr., MD 08/28/20176:14 PM Large Joint Arthrocentesis Consent given by: patient Site marked: site marked Timeout: Immediately prior to procedure a time out was called to verify the correct patient, procedure, equipment, decision support manager and site/side marked as required Supporting Documentation [...] procedure well with no immediate complications after 02/16/2017 Insurance Payer Benefit Subscriber ID Type Phone Address Plan / Group MEDICARE MEDICARE xxxxxxxxxx Medicare [place], [place] PART A AND B xxxxxxxxx-xx FOR LIFE Advance Directives Patient has advance care planning documents on file. For more information, aaron silva contact: Jaciel Melendrez [address] [place] [address]
--- OUTSIDE RECORDS SUMMARY | 2018-02-17 07:54 | XMS REPORT | Summary of Care ---
Author Author [facility] Organization [facility] Address Unknown Phone Unavailable Encounter HQ Vanessa(FIN) [id number] Date(s): 04/09/16 - 05/08/16 [facility] [address] [place] [address]- Discharge Disposition: Home or Self Care Attending Physician: Rhiannon Salazar MD Referring Physician: Rhiannon Salazar MD Vital Signs No data available for this section Problem List Condition Effective Dates Status Health Status Informant Cardiac dysrhythmia, Resolved unspecified(Confirme d) Chronic Active anemia(Confirmed) Fecal Resolved incontinence(Confirm ed) Myelodysplastic Resolved syndrome(Confirmed) Rectocele(Confirmed) Resolved Ventricular Resolved tachycardia(Confirme d) Allergies, Adverse Reactions, Alerts Substance Reaction Severity Status codeine hallucination Active Tape breaks skin Active Medications Procrit 40,000 unit, 2 mL, Route: SUB-Q, Drug form: INJ, ONCALL, Start date: 04/16/16 9: 30:00 HAND SIZER, Duration: 12 hr, Stop date: 04/16/16 21:29:00 HAND SIZER Notes: (Same as: Procrit) Procrit 20,000 unit/ml VL. For non-dialysis use in a dult only.WASTE: F/P - Red; E -Red To be used in dialysis for children; Contai ns different preservative. Start Date: 04/16/16 Stop Date: 04/17/16 Status: Deleted Procrit 40,000 unit, 1 mL, Route: SUB-Q, Drug form: INJ, ONCALL, Start date: 04/09/16 9: 30:00 HAND SIZER, Duration: 1 day, Stop date: 04/10/16 9:29:00 HAND SIZER Notes: (Same as: Procrit) epoetin madeline [address]07[address] unit/1 ml VL.For non-dialysis use o nly. MEDICATION WASTE Product Size: [id number] unitProduct Wasted: ___ unit Start Date: 04/09/16 Stop Date: 04/09/16 Status: Deleted Results No data available for this section Immunizations No data available for this section Procedures Procedure Date Related Diagnosis Body Site Rotator cuff repair 03/10/09 Hysterectomy 03/10/74 Repair of rectocele Social History Social History Type Response Alcohol Current, Previous treatment: None. Smoking Status Never smoker; Exposure to Tobacco Smoke None; Cigarette Smoking Last 365 Days No; Reg Smoking Cessation Counseling No Assessment and Plan No data available for this section
--- OUTSIDE RECORDS SUMMARY | 2018-02-17 07:54 | XMS REPORT ---
Author [facility] Address Unknown Phone Unavailable Care Team Providers Care [employer] Biology Specialist Name Role Phone SMITH CASTRO Unavailable Unavailable Howard LUEVANO Unavailable Unavailable Payers Payer Name Policy Type Policy Number Effective Date Expiration Date Problems This patient has no known problems. Allergies, Adverse Reactions, Alerts Allergy Name Allergy Type Status Severity Reaction(s) Onset Date Inactive Date Treating Clinician Comments codeine DA Active [facility] 2016-12-08 00:00:00 adhesive tape DA Active [facility] 2016-12-08 00:00:00 Medications This patient has no known medications. Results Test Description Test Time Test Comments Text Results Atomic Results Result Comments CHEST 2 VIEWS 2018-02-11 14:57:00 [facility] [address] [place] [address] Patient Name: DENNIS SCHNEIDER MR #: [id number] : 1940 Age/Sex: 77/F Req #: [id number] [facility] Physician: Ordered by: SMITH CASTRO MD Report #: [id number] Location: OR Room/Bed: Procedure: [id number] DX/CHEST 2 VIEWS Exam Date: 02/11/18 Exam Time: 1445 REPORT STATUS: Signed EXAM: XR CHEST 2 VIEWS DATE: 02/11/2018 2:38 PM INDICATION: Preoperative, hematoma COMPARISON: None FINDINGS: Lines and Tubes: None Heart and Mediastinum: No acute cardiomediastinal findings. Lungs and Pleura: Ill-defined basilar opacities, most notably medial right lung base, likely combination of atelectasis and vascular structures. Bones and Soft Tissues: Surgical anchors right humeral head. IMPRESSION: 1. No acute cardiopulmonary findings. Signed by: Dr. Luiz Burns MD on 02/11/2018 2:59 PM Dictated By: LUIZ BURNS MD 58 Transcribed By: MAVIS on 02/11/181458 COPY TO: SMITH CASTRO MD CT MAXIO FAC/PARANAS WO 2018-01-22 11:17:00 [place] [address] Patient Name: DENNIS SCHNEIDER MR #: [id number] : 1940 Age/Sex: 77/F Req #: [id number] Adm Physician: Ordered by: DAYTON SOTO NP Report #: [id number] Location: ER Room/Bed: Procedure: [id number] CT/CT MAXIO FAC/PARANAS WO Exam Date: 01/22/18 Exam Time: 1030 REPORT STATUS: Signed Exams: Head, maxillofacial and cervical spine CTs without IV contrast History: Trauma, fall Comparison studies: None Technique: Axial images were obtained to the vertex and through the cervical spine and maxilla facial region. Coronal and sagittal images reconstructed from the axial data. Dose modulation, iterative reconstruction, and/or weight based adjustment of the mA/kV was utilized to reduce the radiation dose to as low as reasonably achievable. Intravenous contrast: None Findings: Scalp: No abnormalities. Bones: No fractures, blastic or lytic lesions. Brain sulci: Mildly prominent but age appropriate.. Ventricles: Normal in size and configuration. No hydrocephalus. Parenchyma: No mass, acute hemorrhage or acute or chronic cortical vascular insults. A few scattered hypodensities in the supratentorial white matter are nonspecific but most compatible with chronic microvascular ischemic changes. Sellar/suprasellar region: No abnormalities Craniocervical junction: Patent foramen magnum. No Chiari one malformation. Maxillofacial CT: Soft tissues: Moderate hematoma in the left inferolateral premaxillary soft tissues. Mild reactive changes in the left retromaxillary soft tissues may reflect hematoma or possibly local Bones: A linear lucency along the anterolateral wall of the left maxillary sinus, may represent nondisplaced fracture versus prominent vascular channel. Incidental torus mandibularis. Orbits: Globes: Intact Extra or intraconal abnormalities: None. Paranasal sinuses: Chronic inflammatory changes in the left maxillary sinus which is nearly completely opacified and contains inspissated hyperdense secretions which are also partially calcified. 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 Cervical spine CT: Fractures: None. Soft tissue injuries: None. Atlantoaxial articulation: Intact with moderate degenerative changes. There is mild asymmetry of the lateral atlantal dental intervals which may be due to advanced degenerative changes. Alignment: Straightened cervical curvature. Approximately 3 mm anterolisthesis of C4 on C5 and 4 mm anterolisthesis of C6 on C7 which may be degenerative in etiology. Cervicomedullary junction: No abnormalities. The foramen magnum is patent. Soft tissues: No gross acute abnormalities. Vertebrae: No fractures, infection or neoplasm. Degenerative changes: Moderate degenerative changes at the atlantodental, left C1-C2 lateral mass and right atlantooccipital articulations Multilevel disc degeneration, moderate from C2 to C4 and severe from C4 to C7. Anterolisthesis of C4 on C5 with associated uncovered disc/disc osteophyte complex results in mild canal stenosis. Mild canal stenosis at C5-C6 due to a disc osteophyte complex measuring degrees of multilevel moderate to severe facet arthrosis. The left C2-C3 and right C3-C4 facets are fused. Multilevel uncovertebral facet arthrosis result in multilevel foraminal stenosis (mild right at C3-C4 moderate left and mild right at C4-C5, moderate bilaterally at C5-C6 in mild right at C6-C7). Incidental findings: Mild scarring at the lung apices. Atherosclerotic calcifications in the carotid siphons. Mild chronic inflammatory changes at the left mastoid tip. IMPRESSION: Head CT: 1. No acute abnormalities. 2. Mild age-appropriate generalized volume loss. 3. Mild microvascular ischemic changes. Maxillofacial CT: 1. Left mitchell-maxillary soft tissue tissue hematoma. 2. Lucency along the inferior lateral wall the left maxillary sinus may reflect prominent perivascular channel or less likely nondisplaced fracture. 3. Chronic inflammatory changes in the left maxillary sinus. Mild soft tissue changes in the left retromaxillary fat may reflect regional extension of soft tissue hematoma or changes related to sinus disease Cervical spine CT: 1. No cervical spine fracture. 2. Anterolisthesis of C4 on C5 and C6 on C7 are most likely degenerative in etiology. 3. Additional advanced degenerative changes as described. 4. Cannot adequately evaluate ligament, spinal cord and or vascular abnormalities on the basis of this exam. Signed by: Dr. Noemi Guerrero M.D. on 01/22/2018 11:47 AM Dictated By: NOEMI GUERRERO MD 1147 Transcribed By: MAVIS on 01/22/18 1147 COPY TO: DAYTON SOTO NP CT CERVICAL SPINE WO 2018-01-22 11:17:00 [place] [address] Patient Name: DENNIS SCHNEIDER MR #: [id number] : 1940 Age/Sex: 77/F Req #: [id number] Adm Physician: Ordered by: DAYTON SOTO NP Report #: [id number] Location: ER Room/Bed: Procedure: [id number] CT/CT CERVICAL SPINE WO Exam Date: 01/22/18 Exam Time: 1030 REPORT STATUS: Signed Exams: Head, maxillofacial and cervical spine CTs without IV contrast History: Trauma, fall Comparison studies: None Technique: Axial images were obtained to the vertex and through the cervical spine and maxilla facial region. Coronal and sagittal images reconstructed from the axial data. Dose modulation, iterative reconstruction, and/or weight based adjustment of the mA/kV was utilized to reduce the radiation dose to as low as reasonably achievable. Intravenous contrast: None Findings: Scalp: No abnormalities. Bones: No fractures, blastic or lytic lesions. Brain sulci: Mildly prominent but age appropriate.. Ventricles: Normal in size and configuration. No hydrocephalus. Parenchyma: No mass, acute hemorrhage or acute or chronic cortical vascular insults. A few scattered hypodensities in the supratentorial white matter are nonspecific but most compatible with chronic microvascular ischemic changes. Sellar/suprasellar region: No abnormalities Craniocervical junction: Patent foramen magnum. No Chiari one malformation. Maxillofacial CT: Soft tissues: Moderate hematoma in the left inferolateral premaxillary soft tissues. Mild reactive changes in the left retromaxillary soft tissues may reflect hematoma or possibly local Bones: A linear lucency along the anterolateral wall of the left maxillary sinus, may represent nondisplaced fracture versus prominent vascular channel. Incidental torus mandibularis. Orbits: Globes: Intact Extra or intraconal abnormalities: None. Paranasal sinuses: Chronic inflammatory changes in the left maxillary sinus which is nearly completely opacified and contains inspissated hyperdense secretions which are also partially calcified. 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 Cervical spine CT: Fractures: None. Soft tissue injuries: None. Atlantoaxial articulation: Intact with moderate degenerative changes. There is mild asymmetry of the lateral atlantal dental intervals which may be due to advanced degenerative changes. Alignment: Straightened cervical curvature. Approximately 3 mm anterolisthesis of C4 on C5 and 4 mm anterolisthesis of C6 on C7 which may be degenerative in etiology. Cervicomedullary junction: No abnormalities. The foramen magnum is patent. Soft tissues: No gross acute abnormalities. Vertebrae: No fractures, infection or neoplasm. Degenerative changes: Moderate degenerative changes at the atlantodental, left C1-C2 lateral mass and right atlantooccipital articulations Multilevel disc degeneration, moderate from C2 to C4 and severe from C4 to C7. Anterolisthesis of C4 on C5 with associated uncovered disc/disc osteophyte complex results in mild canal stenosis. Mild canal stenosis at C5-C6 due to a disc osteophyte complex measuring degrees of multilevel moderate to severe facet arthrosis. The left C2-C3 and right C3-C4 facets are fused. Multilevel uncovertebral facet arthrosis result in multilevel foraminal stenosis (mild right at C3-C4 moderate left and mild right at C4-C5, moderate bilaterally at C5-C6 in mild right at C6-C7). Incidental findings: Mild scarring at the lung apices. Atherosclerotic calcifications in the carotid siphons. Mild chronic inflammatory changes at the left mastoid tip. IMPRESSION: Head CT: 1. No acute abnormalities. 2. Mild age-appropriate generalized volume loss. 3. Mild microvascular ischemic changes. Maxillofacial CT: 1. Left mitchell-maxillary soft tissue tissue hematoma. 2. Lucency along the inferior lateral wall the left maxillary sinus may reflect prominent perivascular channel or less likely nondisplaced fracture. 3. Chronic inflammatory changes in the left maxillary sinus. Mild soft tissue changes in the left retromaxillary fat may reflect regional extension of soft tissue hematoma or changes related to sinus disease Cervical spine CT: 1. No cervical spine fracture. 2. Anterolisthesis of C4 on C5 and C6 on C7 are most likely degenerative in etiology. 3. Additional advanced degenerative changes as described. 4. Cannot adequately evaluate ligament, spinal cord and or vascular abnormalities on the basis of this exam. Signed by: Dr. Noemi Guerrero M.D. on 01/22/2018 11:47 AM Dictated By: NOEMI GUERRERO MD 1147 Transcribed By: MAVIS on 01/22/18 1143 COPY TO: DAYTON SOTO NP CT BRAIN WO 2018-01-22 11:17:00 [place] [address] Patient Name: DENNIS SCHNEIDER MR #: [id number] : 1940 [facility] 77[id number] Req #: [id number] Adm Physician: Ordered by: DAYTON SOTO NP Report #: [id number] Location: Room/Bed: Procedure: [id number] CT/CT BRAIN WO Exam Date: 01/22/18 Exam Time: 1030 REPORT STATUS: Signed Exams: Head, maxillofacial and cervical spine CTs without IV contrast History: Trauma, fall Comparison studies: None Technique: Axial images were obtained to the vertex and through the cervical spine and maxilla facial region. Coronal and sagittal images reconstructed from the axial data. Dose modulation, iterative reconstruction, and/or weight based adjustment of the mA/kV was utilized to reduce the radiation dose to as low as reasonably achievable. Intravenous contrast: None Findings: Scalp: No abnormalities. Bones: No fractures, blastic or lytic lesions. Brain sulci: Mildly prominent but age appropriate.. Ventricles: Normal in size and configuration. No hydrocephalus. Parenchyma: No mass, acute hemorrhage or acute or chronic cortical vascular insults. A few scattered hypodensities in the supratentorial white matter are nonspecific but most compatible with chronic microvascular ischemic changes. Sellar/suprasellar region: No abnormalities Craniocervical junction: Patent foramen magnum. No Chiari one malformation. Maxillofacial CT: Soft tissues: Moderate hematoma in the left inferolateral premaxillary soft tissues. Mild reactive changes in the left retromaxillary soft tissues may reflect hematoma or possibly local Bones: A linear lucency along the anterolateral wall of the left maxillary sinus, may represent nondisplaced fracture versus prominent vascular channel. Incidental torus mandibularis. Orbits: Globes: Intact Extra or intraconal abnormalities: None. Paranasal sinuses: Chronic inflammatory changes in the left maxillary sinus which is nearly completely opacified and contains inspissated hyperdense secretions which are also partially calcified. 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 C ervical spine CT: Fractures: None. Soft tissue injuries: None. Atlantoaxial articulation: Intact with moderate degenerative changes. There is mild asymmetry of the lateral atlantal dental intervals which may be due to advanced degenerative changes. Alignment: Straightened cervical curvature. Approximately 3 mm anterolisthesis of C4 on C5 and 4 mm anterolisthesis of C6 on C7 which may be degenerative in etiology. Cervicomedullary junction: No abnormalities. The foramen magnum is patent. Soft tissues: No gross acute abnormalities. Vertebrae: No fractures, infection or neoplasm. Degenerative changes: Moderate degenerative changes at the atlantodental, left C1-C2 lateral mass and right atlantooccipital articulations Multilevel disc degeneration, moderate from C2 to C4 and severe from C4 to C7. Anterolisthesis of C4 on C5 with associated uncovered disc/disc osteophyte complex results in mild canal stenosis. Mild canal stenosis at C5-C6 due to a disc osteophyte complex measuring degrees of multilevel moderate to severe facet arthrosis. The left C2-C3 and right C3-C4 facets are fused. Multilevel uncovertebral facet arthrosis result in multilevel foraminal stenosis (mild right at C3-C4 moderate left and mild right at C4-C5, moderate bilaterally at C5-C6 in mild right at C6-C7). Incidental findings: Mild scarring at the lung apices. Atherosclerotic calcifications in the carotid siphons. Mild chronic inflammatory changes at the left mastoid tip. IMPRESSION: Head CT: 1. No acute abnormalities. 2. Mild age-appropriate generalized volume loss. 3. Mild microvascular ischemic changes. Maxillofacial CT: 1. Left mitchell-maxillary soft tissue tissue hematoma. 2. Lucency along the inferior lateral wall the left maxillary sinus may reflect prominent perivascular channel or less likely nondisplaced fracture. 3. Chronic inflammatory changes in the left maxillary sinus. Mild soft tissue changes in the left retromaxillary fat may reflect regional extension of soft tissue hematoma or changes related to sinus disease Cervical spine CT: 1. No cervical spine fracture. 2. Anterolisthesis of C4 on C5 and C6 on C7 are most likely degenerative in etiology. 3. Additional advanced degenerative changes as described. 4. Cannot adequately evaluate ligament, spinal cord and or vascular abnormalities on the basis of this exam. Signed by: Dr. Noemi Guerrero M.D. on 01/22/2018 11:47 AM Dictated By: NOEMI GUERRERO MD 1147 Transcribed By: MAVIS on 01/22/187 COPY TO: DAYTON SOTO NP HUMERUS LEFT 2+VIEWS 2018-01-22 11:11:00 [place] [address] Patient Name: DENNIS SCHNEIDER MR #: [id number] : 1940 Age/Sex: 77/F Req #: [id number] Adm Physician: Ordered by: DAYTON SOTO NP Report #: [id number] Location: ER Room/Bed: Procedure: [id number] DX/HUMERUS LEFT 2+VIEWS Exam Date: 01/22/18 Exam Time: 1030 REPORT STATUS: Signed PROCEDURE: X-RAY LEFT HUMERUS, TWO OR MORE VIEWS COMPARISON: None. INDICATIONS: LEFT UPPER ARM PAIN FROM FALL FINDINGS: Mild osteopenia. No acute, displaced fracture or dislocation. No lytic or blastic lesion. Mild widening of the a.c. joint, which measures approximately 6-7 mm. Soft tissues are grossly unremarkable. Visualized portions of the left lung are clear. CONCLUSION: No acute displace d fracture or dislocation. Mild widening of the a.c. joint. Correlate for point tenderness. This may be normal, if bilateral. Contralateral shoulder views may be obtained for evaluation, if clinically indicated. French Hardwick M.D. Dictated by: French Hardwick M.D. on 01/22/2018 at 11:11 Electronically approved by: French Hardwick M.D. on 01/22/2018 at 11:11 Dictated By: FRENCH HARDWICK MD 1111 Transcribed By: DEVEN on 01/22/18 1111 COPY TO: DAYTON SOTO NP
--- OUTSIDE RECORDS SUMMARY | 2018-02-17 07:54 | XMS REPORT | Summary of Care ---
Author Author [facility] Organization [facility] Address Unknown Phone Unavailable Encounter HQ Angely_sayra(FIN) [id number] Date(s): 04/22/17 - 04/22/17 [facility] [address] [place] [phone] Encounter Diagnosis Other disorders of lung (Final) - 04/25/17 Discharge Disposition: Home or Self Care Attending Physician: Kirt Hu MD Vital Signs No data available for this section Problem List Condition Effective Dates Status Health Status Informant Cardiac dysrhythmia, Resolved unspecified(Confirme d) Chronic Active anemia(Confirmed) Fecal Resolved incontinence(Confirm ed) Myelodysplastic Resolved syndrome(Confirmed) Rectocele(Confirmed) Resolved Ventricular Resolved tachycardia(Confirme d) Allergies, Adverse Reactions, Alerts Substance Reaction Severity Status codeine hallucination Active Tape breaks skin Active Medications No data available for this section Results No data available for this section Immunizations No data available for this section Procedures Procedure Date Related Diagnosis Body Site Status Rotator cuff repair 03/10/09 Completed Hysterectomy 03/10/74 Completed Infusion1 Completed Repair of rectocele Completed 1bi-annual Infed infusions for chronic iron deficiency anemia Social History Social History Type Response Alcohol Current, Previous treatment: None. Smoking Status Never smoker; Exposure to Tobacco Smoke None; Cigarette Smoking Last 365 Days No; Reg Smoking Cessation Counseling No entered on: 07/22/17 Assessment and Plan No data available for this section
--- OUTSIDE RECORDS SUMMARY | 2018-02-17 07:54 | XMS REPORT | Summary of Care ---
Author Author [facility] Organization [facility] Address Unknown Phone Unavailable Encounter [facility] Vanessa(CATHERINE) [id number] Date(s): 03/12/16 - 04/10/16 [facility] [address] [place] [address]- Discharge Disposition: Home or Self Care Attending Physician: Rhiannon Salazar MD Referring Physician: Rhiannon Salazar MD Vital Signs 1 2 3 Most recent to oldest [Reference Range]: 170.1 cm (03/08/16 8:26 AM) Height 98 DegF (04/02/16 10:00 AM) 97.8 DegF (03/26/16 10:00 AM) 98.1 DegF (03/19/16 10:00 AM) Temperature Oral [96.4-99.1 DegF] 134/70 mmHg (04/02/16 10:00 AM) 106/65 mmHg (03/26/16 10:00 AM) 135/77 mmHg (03/19/16 10:00 AM) Blood Pressure [90-140/60-90 mmHg] 16 BRMIN (04/02/16 10:00 AM) 18 BRMIN (03/26/16 10:00 AM) 18 BRMIN (03/19/16 10:00 AM) Respiratory Rate [14-20 BRMIN] 66 bpm (04/02/16 10:00 AM) 72 bpm (03/26/16 10:00 AM) 65 bpm (03/19/16 10:00 AM) Peripheral Pulse Rate [60-100 bpm] 58.8 kg (03/08/16 8:26 AM) Weight 20.32 m2 (03/08/16 8:26 AM) Body Mass Index Problem List Condition Effective Dates Status Health Status Informant Cardiac dysrhythmia, Resolved unspecified(Confirme d) Chronic Active anemia(Confirmed) Fecal Resolved incontinence(Confirm ed) Myelodysplastic Resolved syndrome(Confirmed) Rectocele(Confirmed) Resolved Ventricular Resolved tachycardia(Confirme d) Allergies, Adverse Reactions, Alerts Substance Reaction Severity Status codeine hallucination Active Tape breaks skin Active Medications Benadryl 25 mg, 0.5 mL, Route: IVP, Drug form: INJ, ONCALL, Start date: 04/02/16 9:00:00 PAPER REEL OPERATOR, Duration: 12 hr, Stop date: 04/02/16 20:59:00 PAPER REEL OPERATOR Notes: (Same as: Benadryl) Start Date: 04/02/16 Stop Date: 04/02/16 Status: Completed Benadryl + sodium chloride 0.9% INJ 50 mL 25 mg, 0.5 mL, Route: IVPB, Drug form: INJ, ONCALL, Start date: 03/26/16 9:30:00 PAPER REEL OPERATOR, Duration: 8 hr, Stop date: 03/26/16 17:29:00 PAPER REEL OPERATOR Notes: (Same as: Benadryl) Start Date: 03/26/16 Stop Date: 03/26/16 Status: Completed Benadryl + sodium chloride 0.9% INJ 50 mL 25 mg, 0.5 mL, Route: IVPB, Drug form: INJ, ONCALL, Start date: 03/19/16 9:30:00 PAPER REEL OPERATOR, Duration: 8 hr, Stop date: 03/19/16 17:29:00 PAPER REEL OPERATOR Notes: (Same as: Benadryl) Start Date: 03/19/16 Stop Date: 03/19/16 Status: Completed Benadryl + sodium chloride 0.9% INJ 50 mL 25 mg, 0.5 mL, Route: IVPB, Drug form: INJ, ONCALL, Start date: 04/09/16 8:00:00 PAPER REEL OPERATOR, Duration: 12 hr, Stop date: 04/09/16 19:59:00 PAPER REEL OPERATOR Notes: (Same as: Benadryl) Start Date: 04/09/16 Stop Date: 04/09/16 Status: Deleted Benadryl + sodium chloride 0.9% INJ 50 mL 25 mg, 0.5 mL, Route: IVPB, Drug form: INJ, ONCALL, Start date: 03/12/16 10:00:0 0 PAPER REEL OPERATOR, Duration: 8 hr, Stop date: 03/12/16 17:59:00 PAPER REEL OPERATOR Notes: (Same as: Benadryl) Start Date: 03/12/16 Stop Date: 03/12/16 Status: Completed dexamethasone + sodium chloride 0.9% INJ 50 mL 10 mg, 2.5 mL, Route: IVPB, Drug form: INJ, ONCALL, Start date: 04/02/16 9:00:00 PAPER REEL OPERATOR, Duration: 8 hr, Stop date: 04/02/16 16:59:00 PAPER REEL OPERATOR Notes: PROTECT FROM LIGHT Start Date: 04/02/16 Stop Date: 04/02/16 Status: Completed dexamethasone + sodium chloride 0.9% INJ 50 mL 10 mg, 2.5 mL, Route: IVPB, Drug form: INJ, ONCALL, Start date: 03/12/16 10:00:0 0 PAPER REEL OPERATOR, Duration: 8 hr, Stop date: 03/12/16 17:59:00 PAPER REEL OPERATOR Notes: PROTECT FROM LIGHT Start Date: 03/12/16 Stop Date: 03/12/16 Status: Completed dexamethasone + sodium chloride 0.9% INJ 50 mL 10 mg, 2.5 mL, Route: IVPB, Drug form: INJ, ONCALL, Start date: 04/09/16 8:00:00 PAPER REEL OPERATOR, Duration: 12 hr, Stop date: 04/09/16 19:59:00 PAPER REEL OPERATOR Notes: PROTECT FROM LIGHT Start Date: 04/09/16 Stop Date: 04/09/16 Status: Deleted dexamethasone + sodium chloride 0.9% INJ 50 mL 10 mg, 2.5 mL, Route: IVPB, Drug form: INJ, ONCALL, Start date: 03/19/16 9:30:00 PAPER REEL OPERATOR, Duration: 8 hr, Stop date: 03/19/16 17:29:00 PAPER REEL OPERATOR Notes: PROTECT FROM LIGHT Start Date: 03/19/16 Stop Date: 03/19/16 Status: Completed dexamethasone + sodium chloride 0.9% INJ 50 mL 10 mg, 2.5 mL, Route: IVPB, Drug form: INJ, ONCALL, Start date: 03/26/16 9:30:00 PAPER REEL OPERATOR, Duration: 8 hr, Stop date: 03/26/16 17:29:00 PAPER REEL OPERATOR Notes: PROTECT FROM LIGHT Start Date: 03/26/16 Stop Date: 03/26/16 Status: Completed DexFerrum + sodium chloride 0.9% 500 ml INJ 490 mL 500 mg, 10 mL, Route: IVPB, Drug form: INJ, ONCALL, Start date: 04/02/16 9:00:00 PAPER REEL OPERATOR, Duration: 8 hr, Stop date: 04/02/16 16:59:00 PAPER REEL OPERATOR Notes: (Same as:DexFerrum) Non-FormularyPROTECT FROM LIGHT Start Date: 04/02/16 Stop Date: 04/02/16 Status: Completed DexFerrum + sodium chloride 0.9% 500 ml INJ 490 mL 500 mg, 10 mL, Route: IVPB, Drug form: INJ, ONCALL, Start date: 03/26/16 9:30:00 PAPER REEL OPERATOR, Duration: 8 hr, Stop date: 03/26/16 17:29:00 PAPER REEL OPERATOR Notes: (Same as:DexFerrum) Non-FormularyPROTECT FROM LIGHT Start Date: 03/26/16 Stop Date: 03/26/16 Status: Completed DexFerrum + sodium chloride 0.9% 500 ml INJ 490 mL 500 mg, 10 mL, Route: IVPB, Drug form: INJ, ONCALL, Start date: 03/12/16 10:00:0 0 PAPER REEL OPERATOR, Duration: 8 hr, Stop date: 03/12/16 17:59:00 PAPER REEL OPERATOR Notes: (Same as:DexFerrum) Non-FormularyPROTECT FROM LIGHT Start Date: 03/12/16 Stop Date: 03/12/16 Status: Completed DexFerrum + sodium chloride 0.9% 500 ml INJ 490 mL 500 mg, 10 mL, Route: IVPB, Drug form: INJ, ONCALL, Start date: 03/19/16 9:30:00 PAPER REEL OPERATOR, Duration: 8 hr, Stop date: 03/19/16 17:29:00 PAPER REEL OPERATOR Notes: (Same as:DexFerrum) Non-FormularyPROTECT FROM LIGHT Start Date: 03/19/16 Stop Date: 03/19/16 Status: Completed Pepcid 20 mg, 2 mL, Route: IVP, Drug form: INJ, ONCALL, Start date: 04/02/16 9:00:00 CS T, Duration: 8 hr, Stop date: 04/02/16 16:59:00 PAPER REEL OPERATOR Notes: (Same as: Pepcid)Can be dilute in 5-10cc NS IVP: Slow IV push over at le ast 2 minutes. Start Date: 04/02/16 Stop Date: 04/02/16 Status: Completed Pepcid 20 mg, 2 mL, Route: IVP, Drug form: INJ, ONCALL, Start date: 03/26/16 9:30:00 CS T, Duration: 8 hr, Stop date: 03/26/16 17:29:00 PAPER REEL OPERATOR Notes: (Same as: Pepcid)Can be dilute in 5-10cc NS IVP: Slow IV push over at le ast 2 minutes. Start Date: 03/26/16 Stop Date: 03/26/16 Status: Completed Pepcid 20 mg, 2 mL, Route: IVP, Drug form: INJ, ONCALL, Start date: 03/19/16 9:30:00 CS T, Duration: 8 hr, Stop date: 03/19/16 17:29:00 PAPER REEL OPERATOR Notes: (Same as: Pepcid)Can be dilute in 5-10cc NS IVP: Slow IV push over at le ast 2 minutes. Start Date: 03/19/16 Stop Date: 03/19/16 Status: Completed Pepcid 20 mg, 2 mL, Route: IVP, Drug form: INJ, ONCALL, Start date: 04/09/16 8:00:00 CS T, Duration: 12 hr, Stop date: 04/09/16 19:59:00 PAPER REEL OPERATOR Notes: (Same as: Pepcid)Can be dilute in 5-10cc NS IVP: Slow IV push over at le ast 2 minutes. Start Date: 04/09/16 Stop Date: 04/09/16 Status: Deleted Pepcid 20 mg, 2 mL, Route: IVP, Drug form: INJ, ONCALL, Start date: 03/13/16 10:00:[address], Duration: 8 hr, Stop date: 03/13/16 17:59:00 PAPER REEL OPERATOR Notes: (Same as: Pepcid)Can be dilute in 5-10cc NS IVP: Slow IV push over at le ast 2 minutes. Start Date: 03/13/16 Stop Date: 03/12/16 Status: Completed Procrit 40,000 unit, 2 mL, Route: SUB-Q, Drug form: INJ, ONCALL, Start date: 04/09/16 8: 00:00 PAPER REEL OPERATOR, Duration: 12 hr, Stop date: 04/09/16 19:59:00 PAPER REEL OPERATOR Notes: (Same as: Procrit) Procrit 20,000 unit/ml VL. For non-dialysis use in a dult only.WASTE: F/P - Red; E -Red To be used in dialysis for children; Contai ns different preservative. Start Date: 04/09/16 Stop Date: 04/09/16 Status: Completed Procrit 40,000 unit, 2 mL, Route: SUB-Q, Drug form: INJ, ONCALL, Start date: 03/12/16 10 :00:00 PAPER REEL OPERATOR, Duration: 8 hr, Stop date: 03/12/16 17:59:00 PAPER REEL OPERATOR Notes: (Same as: Procrit) Procrit 20,000 unit/ml VL. For non-dialysis use in a dult only. To be used in dialysis for children; Contains different preservativ e. Start Date: 03/12/16 Stop Date: 03/12/16 Status: Completed Sodium Chloride 0.9% IV IV, 30 ml/hr, PRN, PRN Line Flush, Start date: 03/12/16 10:00:00 PAPER REEL OPERATOR, Duration: 8, 250 ml Start Date: 03/12/16 Stop Date: 03/12/16 Status: Completed Sodium Chloride 0.9% IV IV, 30 ml/hr, ONCALL, Start date: 04/09/16 8:00:00 PAPER REEL OPERATOR, Duration: 12, 250 ml Start Date: 04/09/16 Stop Date: 04/09/16 Status: Deleted Sodium Chloride 0.9% IV IV, 30 ml/hr, ONCALL, Start date: 03/18/16 16:00:00 PAPER REEL OPERATOR, Duration: 8, 250 ml Start Date: 03/18/16 Stop Date: 03/18/16 Status: Ordered Sodium Chloride 0.9% IV IV, 30 ml/hr, ONCALL, Start date: 04/02/16 9:00:00 PAPER REEL OPERATOR, Duration: 8, 250 ml Start Date: 04/02/16 Stop Date: 04/02/16 Status: Completed Sodium Chloride 0.9% IV IV, 30 ml/hr, ONCALL, Start date: 03/26/16 9:30:00 PAPER REEL OPERATOR, Duration: 8, 250 ml Start Date: 03/26/16 Stop Date: 03/26/16 Status: Ordered Results No data available for this section [...]
--- OUTSIDE RECORDS SUMMARY | 2018-02-17 07:54 | XMS REPORT | Summary of Care ---
Author Author [facility] Organization [facility] Address Unknown Phone Unavailable Encounter SINA Mendez(CATHERINE) [id number] Date(s): 01/30/15 - 02/28/15 [facility] [address] [place] [address]- [phone] Discharge Disposition: Home Attending Physician: Rhiannon Salaazr MD Referring Physician: Rhiannon Salazar MD Vital Signs Most recent to 1 oldest [Reference Range]: Height 170.18 cm (01/30/15 11:06 AM) Weight 58.8 kg (01/30/15 11:06 AM) Body Mass Index 20.3 m2 (01/30/15 11:06 AM) Problem List Condition Effective Dates Status Health Status Informant Cardiac dysrhythmia, Resolved unspecified(Confirme d) Chronic Active anemia(Confirmed) Fecal Resolved incontinence(Confirm ed) Myelodysplastic Resolved syndrome(Confirmed) Rectocele(Confirmed) Resolved Ventricular Resolved tachycardia(Confirme d) Allergies, Adverse Reactions, Alerts Substance Reaction Severity Status codeine hallucination Active Tape breaks skin Active Medications epoetin madeline 40,000 unit, 2 mL, Route: SUB-Q, Drug form: INJ, ONCALL, Start date: 01/30/15 12 :00:00, Duration: 8 hr, Stop date: 01/30/15 19:59:00 Notes: (Same as: Procrit) Procrit 20,000 unit/ml VL. For non-dialysis use in a dult only. To be used in dialysis for children; Contains different preservativ e. Start Date: 01/30/15 Stop Date: 01/30/15 Status: Completed Procrit 40,000 unit, 2 mL, Route: SUB-Q, Drug form: INJ, ONCALL, Start date: 02/06/15 9: 00:00, Duration: 8 hr, Stop date: 02/06/15 16:59:00 Notes: (Same as: Procrit) Procrit 20,000 unit/ml VL. For non-dialysis use in a dult only. To be used in dialysis for children; Contains different preservativ e. Start Date: 02/06/15 Stop Date: 02/06/15 Status: Completed Procrit 40,000 unit, 2 mL, Route: SUB-Q, Drug form: INJ, ONCALL, Start date: 02/13/15 11 :00:00, Duration: 8 hr, Stop date: 02/13/15 18:59:00 Notes: (Same as: Procrit) Procrit 20,000 unit/ml VL. For non-dialysis use in a dult only. To be used in dialysis for children; Contains different preservativ e. Start Date: 02/13/15 Stop Date: 02/13/15 Status: Completed Procrit 40,000 unit, 2 mL, Route: SUB-Q, Drug form: INJ, ONCALL, Start date: 02/20/15 9: 00:00, Duration: 12 hr, Stop date: 02/20/15 20:59:00 Notes: (Same as: Procrit) Procrit 20,000 unit/ml VL. For non-dialysis use in a dult only. To be used in dialysis for children; Contains different preservativ e. Start Date: 02/20/15 Stop Date: 02/20/15 Status: Completed Results No data available for this section [...]
--- OUTSIDE RECORDS SUMMARY | 2018-02-17 07:54 | XMS REPORT | Continuity of Care Document ---
Author Author [facility] Interface Address Unknown Phone Unavailable Problems Problem Status Onset Date Classification Date Reported Comments Source INFED 500MG /// CPT: J1750, 14590 /// DX Active 06/30/2017 [facility] Other disorders of lung 04/26/2017 07/29/2017 [facility] [place] PROCRIT 40,000 UNITS WEEKLY X4, J0885, C Active 04/02/2016 [facility] PROCRIT 40,000 UNITS WEEKLY X4, J0885 Active 04/02/2016 [facility] INFED 500 MG J1750, CPT-63080, D46.9, D6 Active 02/28/2016 [facility] D46.9 Active 01/26/2015 [facility] 518.89 ABNORMALITY OF LUNG Active 10/12/2013 [facility] cardiomyopathy Active Problem 10/16/2013 [facility] cholesterol Active Problem 10/16/2013 [facility] heartburn Active Problem 10/16/2013 [facility] hypertension Active Problem 10/16/2013 [facility] iron deficiency Active Problem 10/16/2013 [facility] viral Resolved Problem 10/16/2013 [facility] Cardiac dysrhythmia, unspecified Resolved Problem 08/09/2017 [facility] [place] Chronic anemia Active Problem 08/09/2017 [facility] [place] Fecal incontinence Resolved Problem 08/09/2017 [facility] [place] Myelodysplastic syndrome Resolved Problem 08/09/2017 [facility] [place] Rectocele Resolved Problem 08/09/2017 [facility] [place] Ventricular tachycardia Resolved Problem 08/09/2017 [facility] [place] OTHER LUNG DISEASE NEC Active [facility] MYELODYSPLASTIC SYNDROME, UNSPECIFIED Active [facility] ANEMIA IN CHRONIC KIDNEY DISEASE Active [facility] IRON DEFICIENCY ANEMIA, UNSPECIFIED Active [facility] Medications Medication Details Route Status Patient Instructions Ordering Provider Order Date Source dexamethasone + Sodium Chloride 0.9% IV 47.5 mL 10 mg, 2.5 mL, Route: IVPB, Drug form: INJ, ONCALL, Start date: 07/22/17 9:30:00 CDT, Duration: 10 hr, Stop date: 07/22/17 19:29:00 CDTNotes: PROTECT FROM LIGHT Inactive 07/22/2017 [facility] iron dextran + Sodium Chloride 0.9% IV 490 mL 500 mg, 10 mL, Route: IVPB, Drug form: INJ, ONCALL, Start date: 07/22/17 9:30:00 CDT, Duration: 10 hr, Stop date: 07/22/17 19:29:00 CDTNotes: (Same as:DexFerrum) Non Formulary MEDICATION WASTE Product Size: 100 mg Product Wasted: ___ mg Inactive 07/22/2017 [facility] famotidine 20 mg, 1 tab, Route: PO, Drug form: TAB, ONCALL, Start date: 07/22/17 9:30:00 CDT, Duration: 10 hr, Stop date: 07/22/17 19:29:00 CDTNotes: (Same as: Pepcid) Inactive 07/22/2017 [facility] Benadryl 30 mg, 0.6 mL, Route: IVP, Drug form: INJ, ONCALL, Start date: 07/22/17 9:30:00 CDT, Duration: 10 hr, Stop date: 07/22/17 19:29:00 CDTNotes: (Same as: Benadryl) Inactive 07/22/2017 [facility] 24 HR mirabegron 25 MG Extended Release Tablet [Myrbetriq] 25 mg=1 tab, PO, PRN, # 30 tab, 5 Refill(s) Active 07/15/2017 [facility] sodium chloride 0.9% INJ 250 mL, PYXIS, ONCE, Start date: 07/15/17 9:30:00 CDT Inactive 07/15/2017 [facility] famotidine 20 mg, 1 tab, Route: PO, Drug form: TAB, ONCALL, Start date: 07/15/17 9:30:00 CDT, Duration: 10 hr, Stop date: 07/15/17 19:29:00 CDTNotes: (Same as: Pepcid) Inactive 07/15/2017 [facility] Benadryl 30 mg, 0.6 mL, Route: IVP, Drug form: INJ, ONCALL, Start date: 07/15/17 9:30:00 CDT, Duration: 10 hr, Stop date: 07/15/17 19:29:00 CDTNotes: (Same as: Benadryl) Inactive 07/15/2017 [facility] iron dextran + Sodium Chloride 0.9% IV 490 mL 500 mg, 10 mL, Route: IVPB, Drug form: INJ, ONCALL, Start date: 07/15/17 9:30:00 CDT, Duration: 10 hr, Stop date: 07/15/17 19:29:00 CDTNotes: (Same as:DexFerrum) Non Formulary MEDICATION WASTE Product Size: 100 mg Product Wasted: ___ mg Inactive 07/15/2017 [facility] dexamethasone + Sodium Chloride 0.9% IV 47.5 mL 10 mg, 2.5 mL, Route: IVPB, Drug form: INJ, ONCALL, Start date: 07/15/17 9:30:00 CDT, Duration: 10 hr, Stop date: 07/15/17 19:29:00 CDTNotes: PROTECT FROM LIGHT Inactive 07/15/2017 [facility] iron dextran + Sodium Chloride 0.9% IV 490 mL 500 mg, 10 mL, Route: IVPB, Drug form: INJ, ONCALL, Start date: 07/08/17 9:30:00 CDT, Duration: 10 hr, Stop date: 07/08/17 19:29:00 CDTNotes: (Same as:DexFerrum) Non Formulary MEDICATION WASTE Product Size: 100 mg Product Wasted: ___ mg Inactive 07/08/2017 [facility] dexamethasone + Sodium Chloride 0.9% IV 47.5 mL 10 mg, 2.5 mL, Route: IVPB, Drug form: INJ, ONCALL, Start date: 07/08/17 9:30:00 CDT, Duration: 10 hr, Stop date: 07/08/17 19:29:00 CDT Inactive 07/08/2017 [facility] Benadryl 30 mg, 0.6 mL, Route: IVP, Drug form: INJ, ONCALL, Start date: 07/08/17 9:30:00 CDT, Duration: 10 hr, Stop date: 07/08/17 19:29:00 CDTNotes: (Same as: Benadryl) Inactive 07/08/2017 [facility] famotidine 20 mg, 1 tab, Route: PO, Drug form: TAB, ONCALL, Start date: 07/08/17 9:30:00 CDT, Duration: 10 hr, Stop date: 07/08/17 19:29:00 CDTNotes: (Same as: Pepcid) Inactive 07/08/2017 [facility] Procrit 40,000 unit, 2 mL, Route: SUB-Q, Drug form: INJ, ONCALL, Start date: 04/16/16 9:30:00 ASSOCIATE PRINCIPAL, Duration: 12 hr, Stop date: 04/16/16 21:29:00 CSTNotes: (Same as: Procrit) Procrit 20,000 unit/ml VL. For non- dialysis use in adult only. WASTE: F/P - Red; E -Red To be used in dialysis for children; Contains different preservative. No Longer Active 04/16/2016 [facility] Procrit 40,000 unit, 1 mL, Route: SUB-Q, Drug form: INJ, ONCALL, Start date: 04/09/16 9:30:00 ASSOCIATE PRINCIPAL, Duration: 1 day, Stop date: 04/10/16 9:29:00 CSTNotes: (Same as: Procrit) epoetin madeline 01028 unit/1 ml VL. For non- dialysis use only. MEDICATION WASTE Product Size: 33732 unit Product Wasted: ___ unit Inactive 04/09/2016 [facility] Pepcid 20 mg, 2 mL, Route: IVP, Drug form: INJ, ONCALL, Start date: 04/09/16 8:00:00 ASSOCIATE PRINCIPAL, Duration: 12 hr, Stop date: 04/09/16 19:59:00 CSTNotes: (Same as: Pepcid) Can be dilute in 5-10cc NS IVP: Slow IV push over at least 2 minutes. Inactive 04/09/2016 [facility] Benadryl + sodium chloride 0.9% INJ 50 mL 25 mg, 0.5 mL, Route: IVPB, Drug form: INJ, ONCALL, Start date: 04/09/16 8:00:00 ASSOCIATE PRINCIPAL, Duration: 12 hr, Stop date: 04/09/16 19:59:00 CSTNotes: (Same as: Benadryl) Inactive 04/09/2016 [facility] dexamethasone + sodium chloride 0.9% INJ 50 mL 10 mg, 2.5 mL, Route: IVPB, Drug form: INJ, ONCALL, Start date: 04/09/16 8:00:00 ASSOCIATE PRINCIPAL, Duration: 12 hr, Stop date: 04/09/16 19:59:00 CSTNotes: PROTECT FROM LIGHT Inactive 04/09/2016 [facility] Sodium Chloride 0.9% IV IV, 30 ml/hr, ONCALL, Start date: 04/09/16 8:00:00 ASSOCIATE PRINCIPAL, Duration: 12, 250 ml Inactive 04/09/2016 [facility] Procrit 40,000 unit, 2 mL, Route: SUB-Q, Drug form: INJ, ONCALL, Start date: 04/09/16 8:00:00 ASSOCIATE PRINCIPAL, Duration: 12 hr, Stop date: 04/09/16 19:59:00 CSTNotes: (Same as: Procrit) Procrit 20,000 unit/ml VL. For non- dialysis use in adult only. WASTE: F/P - Red; E -Red To be used in dialysis for children; Contains different preservative. Inactive 04/09/2016 [facility] DexFerrum + sodium chloride 0.9% 500 ml INJ 490 mL 500 mg, 10 mL, Route: IVPB, Drug form: INJ, ONCALL, Start date: 04/02/16 9:00:00 ASSOCIATE PRINCIPAL, Duration: 8 hr, Stop date: 04/02/16 16:59:00 CSTNotes: (Same as:DexFerrum) Non-Formulary PROTECT FROM LIGHT Inactive 04/02/2016 [facility] Pepcid 20 mg, 2 mL, Route: IVP, Drug form: INJ, ONCALL, Start date: 04/02/16 9:00:00 ASSOCIATE PRINCIPAL, Duration: 8 hr, Stop date: 04/02/16 16:59:00 CSTNotes: (Same as: Pepcid) Can be dilute in 5-10cc NS IVP: Slow IV push over at least 2 minutes. Inactive 04/02/2016 [facility] dexamethasone + sodium chloride 0.9% INJ 50 mL 10 mg, 2.5 mL, Route: IVPB, Drug form: INJ, ONCALL, Start date: 04/02/16 9:00:00 ASSOCIATE PRINCIPAL, Duration: 8 hr, Stop date: 04/02/16 16:59:00 CSTNotes: PROTECT FROM LIGHT Inactive 04/02/2016 [facility] Benadryl 25 mg, 0.5 mL, Route: IVP, Drug form: INJ, ONCALL, Start date: 04/02/16 9:00:00 ASSOCIATE PRINCIPAL, Duration: 12 hr, Stop date: 04/02/16 20:59:00 CSTNotes: (Same as: Benadryl) Inactive 04/02/2016 [facility] Sodium Chloride 0.9% IV IV, 30 ml/hr, ONCALL, Start date: 04/02/16 9:00:00 ASSOCIATE PRINCIPAL, Duration: 8, 250 ml Inactive 04/02/2016 [facility] DexFerrum + sodium chloride 0.9% 500 ml INJ 490 mL 500 mg, 10 mL, Route: IVPB, Drug form: INJ, ONCALL, Start date: 03/26/16 9:30:00 ASSOCIATE PRINCIPAL, Duration: 8 hr, Stop date: 03/26/16 17:29:00 CSTNotes: (Same as:DexFerrum) Non-Formulary PROTECT FROM LIGHT Inactive 03/26/2016 [facility] Pepcid 20 mg, 2 mL, Route: IVP, Drug form: INJ, ONCALL, Start date: 03/26/16 9:30:00 ASSOCIATE PRINCIPAL, Duration: 8 hr, Stop date: 03/26/16 17:29:00 CSTNotes: (Same as: Pepcid) Can be dilute in 5-10cc NS IVP: Slow IV push over at least 2 minutes. Inactive 03/26/2016 [facility] Benadryl + sodium chloride 0.9% INJ 50 mL 25 mg, 0.5 mL, Route: IVPB, Drug form: INJ, ONCALL, Start date: 03/26/16 9:30:00 ASSOCIATE PRINCIPAL, Duration: 8 hr, Stop date: 03/26/16 17:29:00 CSTNotes: (Same as: Benadryl) Inactive 03/26/2016 [facility] dexamethasone + sodium chloride 0.9% INJ 50 mL 10 mg, 2.5 mL, Route: IVPB, Drug form: INJ, ONCALL, Start date: 03/26/16 9:30:00 ASSOCIATE PRINCIPAL, Duration: 8 hr, Stop date: 03/26/16 17:29:00 CSTNotes: PROTECT FROM LIGHT Inactive 03/26/2016 [facility] Sodium Chloride 0.9% IV IV, 30 ml/hr, ONCALL, Start date: 03/26/16 9:30:00 ASSOCIATE PRINCIPAL, Duration: 8, 250 ml Inactive 03/26/2016 [facility] Pepcid 20 mg, 2 mL, Route: IVP, Drug form: INJ, ONCALL, Start date: 03/19/16 9:30:00 ASSOCIATE PRINCIPAL, Duration: 8 hr, Stop date: 03/19/16 17:29:00 CSTNotes: (Same as: Pepcid) Can be dilute in 5-10cc NS IVP: Slow IV push over at least 2 minutes. Inactive 03/19/2016 [facility] Benadryl + sodium chloride 0.9% INJ 50 mL 25 mg, 0.5 mL, Route: IVPB, Drug form: INJ, ONCALL, Start date: 03/19/16 9:30:00 ASSOCIATE PRINCIPAL, Duration: 8 hr, Stop date: 03/19/16 17:29:00 CSTNotes: (Same as: Benadryl) Inactive 03/19/2016 [facility] dexamethasone + sodium chloride 0.9% INJ 50 mL 10 mg, 2.5 mL, Route: IVPB, Drug form: INJ, ONCALL, Start date: 03/19/16 9:30:00 ASSOCIATE PRINCIPAL, Duration: 8 hr, Stop date: 03/19/16 17:29:00 CSTNotes: PROTECT FROM LIGHT Inactive 03/19/2016 [facility] DexFerrum + sodium chloride 0.9% 500 ml INJ 490 mL 500 mg, 10 mL, Route: IVPB, Drug form: INJ, ONCALL, Start date: 03/19/16 9:30:00 ASSOCIATE PRINCIPAL, Duration: 8 hr, Stop date: 03/19/16 17:29:00 CSTNotes: (Same as:DexFerrum) Non-Formulary PROTECT FROM LIGHT Inactive 03/19/2016 [facility] Sodium Chloride 0.9% IV IV, 30 ml/hr, ONCALL, Start date: 03/18/16 16:00:00 ASSOCIATE PRINCIPAL, Duration: 8, 250 ml Inactive 03/18/2016 [facility] Pepcid 20 mg, 2 mL, Route: IVP, Drug form: INJ, ONCALL, Start date: 03/13/16 10:00:00 ASSOCIATE PRINCIPAL, Duration: 8 hr, Stop date: 03/13/16 17:59:00 CSTNotes: (Same as: Pepcid) Can be dilute in 5-10cc NS IVP: Slow IV push over at least 2 minutes. No Longer Active 03/13/2016 [facility] Sodium Chloride 0.9% IV IV, 30 ml/hr, PRN, PRN Line Flush, Start date: 03/12/16 10:00:00 ASSOCIATE PRINCIPAL, Duration: 8, 250 ml Inactive 2016 [facility] dexamethasone + sodium chloride 0.9% INJ 50 mL 10 mg, 2.5 mL, Route: IVPB, Drug form: INJ, ONCALL, Start date: 03/12/16 10:00:00 ASSOCIATE PRINCIPAL, Duration: 8 hr, Stop date: 03/12/16 17:59:00 CSTNotes: PROTECT FROM LIGHT Inactive 2016 [facility] DexFerrum + sodium chloride 0.9% 500 ml INJ 490 mL 500 mg, 10 mL, Route: IVPB, Drug form: INJ, ONCALL, Start date: 03/12/16 10:00:00 ASSOCIATE PRINCIPAL, Duration: 8 hr, Stop date: 03/12/16 17:59:00 CSTNotes: (Same as:DexFerrum) Non-Formulary PROTECT FROM LIGHT Inactive 2016 [facility] Procrit 40,000 unit, 2 mL, Route: SUB-Q, Drug form: INJ, ONCALL, Start date: 03/12/16 10:00:00 ASSOCIATE PRINCIPAL, Duration: 8 hr, Stop date: 03/12/16 17:59:00 CSTNotes: (Same as: Procrit) Procrit 20,000 unit/ml VL. For non- dialysis use in adult only. To be used in dialysis for children; Contains different preservative. Inactive 2016 [facility] Benadryl + sodium chloride 0.9% INJ 50 mL 25 mg, 0.5 mL, Route: IVPB, Drug form: INJ, ONCALL, Start date: 03/12/16 10:00:00 ASSOCIATE PRINCIPAL, Duration: 8 hr, Stop date: 03/12/16 17:59:00 CSTNotes: (Same as: Benadryl) Inactive 2016 [facility] Procrit 40,000 unit, 2 mL, Route: SUB-Q, Drug form: INJ, ONCALL, Start date: 02/20/15 9:00:00, Duration: 12 hr, Stop date: 02/20/15 20:59:00Notes: (Same as: Procrit) Procrit 20,000 unit/ml VL. For non-dialysis use in adult only. To be used in dialysis for children; Contains different preservative. Inactive 02/20/2015 [facility] Procrit 40,000 unit, 2 mL, Route: SUB-Q, Drug form: INJ, ONCALL, Start date: 02/13/15 11:00:00, Duration: 8 hr, Stop date: 02/13/15 18:59:00Notes: (Same as: Procrit) Procrit 20,000 unit/ml VL. For non-dialysis use in adult only. To be used in dialysis for children; Contains different preservative. Inactive 02/13/2015 [facility] Procrit 40,000 unit, 2 mL, Route: SUB-Q, Drug form: INJ, ONCALL, Start date: 02/06/15 9:00:00, Duration: 8 hr, Stop date: 02/06/15 16:59:00Notes: (Same as: Procrit) Procrit 20,000 unit/ml VL. For non-dialysis use in adult only. To be used in dialysis for children; Contains different preservative. Inactive 02/06/2015 [facility] epoetin madeline 40,000 unit, 2 mL, Route: SUB-Q, Drug form: INJ, ONCALL, Start date: 01/30/15 12:00:00, Duration: 8 hr, Stop date: 01/30/15 19:59:00Notes: (Same as: Procrit) Procrit 20,000 unit/ml VL. For non-dialysis use in adult only. To be used in dialysis for children; Contains different preservative. Inactive 01/30/2015 [facility] Allergies, Adverse Reactions, Alerts Substance Category Reaction Severity Reaction type Status Date Reported Comments Source codeine Assertion hallucination Drug allergy Active [facility] Tape Assertion breaks skin Drug allergy Active [facility] Immunizations Immunization Date Given Site Status Last Updated Comments Source Results Order Name Results Value Reference Range Date Interpretation Comments Source Chest 2 views DX Chest 2 views DX EXAM: XR CHEST 2 VIEWS DATE: 04/22/2017 11:14 AM ASSOCIATE PRINCIPAL INDICATION: - J98.4 Other disorders of lung COMPARISON: Chest CT dated 10/14/2013 TECHNIQUE: PA and lateral chest radiographs FINDINGS: The lungs are clear. The cardiomediastinal silhouette is normal. There is no acute bony abnormality. IMPRESSION: No acute abnormality 04/22/2017 - - Read by: Nishi Laguerre Dictated Date/time: 04/22/17 12:54 Electronically Signed by: Nishi Laguerre 04/22/17 12:54 FINAL REPORT ELIEL Ragland Vital Signs Vital Sign Value Date Comments Source Systolic (mm Hg) 120 07/22/2017 [facility] Diastolic (mm Hg) 74 07/22/2017 [facility] Heart Rate 74 07/22/2017 [facility] Respitory Rate 18 07/22/2017 [facility] Temperature Oral (F) 97.5 F 07/22/2017 [facility] Temperature Oral (F) 97.7 F 07/08/2017 [facility] Respitory Rate 18 07/08/2017 [facility] Systolic (mm Hg) 110 07/08/2017 [facility] Diastolic (mm Hg) 68 07/08/2017 [facility] Heart Rate 70 07/08/2017 [facility] BMI Calculated 20.35 07/07/2017 [facility] Weight 58.8 07/07/2017 [facility] Height 170 cm 07/07/2017 [facility] Systolic (mm Hg) 134 04/02/2016 [facility] Diastolic (mm Hg) 70 04/02/2016 [facility] Heart Rate 66 04/02/2016 [facility] Respitory Rate 16 04/02/2016 [facility] Temperature Oral (F) 98 F 04/02/2016 [facility] Respitory Rate 18 03/26/2016 [facility] Temperature Oral (F) 97.8 F 03/26/2016 [facility] Heart Rate 72 03/26/2016 [facility] Systolic (mm Hg) 106 03/26/2016 [facility] Diastolic (mm Hg) 65 03/26/2016 [facility] Systolic (mm Hg) 135 03/19/2016 [facility] Diastolic (mm Hg) 77 03/19/2016 [facility] Respitory Rate 18 03/19/2016 [facility] Temperature Oral (F) 98.1 F 03/19/2016 [facility] Heart Rate 65 03/19/2016 [facility] Weight 58.8 03/08/2016 [facility] BMI Calculated 20.32 03/08/2016 [facility] Height 170.1 cm 03/08/2016 [facility] Height 170.18 cm 01/30/2015 [facility] BMI Calculated 20.3 01/30/2015 [facility] Weight 58.8 01/30/2015 [facility] Encounters Location Location Details Encounter Type Encounter Number Reason For Visit Attending Provider ADM Date DC Date Status Source [facility] [id number] Kirt Hu 10/14/2013 10/15/2013 [facility] OP Recurring [id number] Ping Salazar 01/30/2015 03/01/2015 [facility] Recurring [id number] Ping Salazar 2016 04/11/2016 [facility] Recurring [id number] Ping Salazar 04/09/2016 05/09/2016 [facility] [place] [facility] [id number] Kirt Hu 04/22/2017 04/23/2017 [facility] [place] [facility] Recurring [id number] Ping Salazar 07/08/2017 08/07/2017 [facility] Procedures Procedure Code Date Perfomer Comments Source Rotator cuff repair [id number] 03/10/2009 [facility] Rotator cuff repair [id number] 03/10/2009 [facility] [place] Hysterectomy [id number] 03/10/1974 [facility] Hysterectomy [id number] 03/10/1974 [facility] [place] Repair of rectocele [id number] [facility] Infusion<sup>1</sup> [id number] bi-annual Infed infusions for chronic iron deficiency anemia [facility] [place] Repair of rectocele [id number] [facility] [place] Infusion<sup>1</sup> [id number] bi-annual Infed infusions for chronic iron deficiency anemia [facility]
--- OUTSIDE RECORDS SUMMARY | 2018-02-17 07:54 | XMS REPORT | Summary of Care ---
Author Author [facility] Organization [facility] Address Unknown Phone Unavailable Encounter HQ Vanessa(CATHERINE) [id number] Date(s): 07/08/17 - 08/06/17 [facility] [address] [place] [address]- [phone] Discharge Disposition: Home or Self Care Attending Physician: Rhiannon Salazar MD Referring Physician: Rhiannon Salazar MD Vital Signs Most recent to 1 2 oldest [Reference Range]: Height 170 cm (07/07/17 11:35 AM) Temperature Oral 97.5 DegF 97.7 DegF [96.4-99.1 DegF] (07/22/17 10:30 AM) (07/08/17 10:00 AM) Blood Pressure 120/74 mmHg 110/68 mmHg [90-140/60-90 mmHg] (07/22/17 10:30 AM) (07/08/17 10:00 AM) Respiratory Rate 18 BRMIN 18 BRMIN [14-20 BRMIN] (07/22/17 10:30 AM) (07/08/17 10:00 AM) Peripheral Pulse 74 bpm 70 bpm Rate [60-100 bpm] (07/22/17 10:30 AM) (07/08/17 10:00 AM) Weight 58.8 kg (07/07/17 11:35 AM) Body Mass Index 20.35 m2 (07/07/17 11:35 AM) Problem List Condition Effective Dates Status Health Status Informant Cardiac dysrhythmia, Resolved unspecified(Confirme d) Chronic Active anemia(Confirmed) Fecal Resolved incontinence(Confirm ed) Myelodysplastic Resolved syndrome(Confirmed) Rectocele(Confirmed) Resolved Ventricular Resolved tachycardia(Confirme d) Allergies, Adverse Reactions, Alerts Substance Reaction Severity Status codeine hallucination Active Tape breaks skin Active Medications Benadryl 30 mg, 0.6 mL, Route: IVP, Drug form: INJ, ONCALL, Start date: 07/08/17 9:30:00 CDT, Duration: 10 hr, Stop date: 07/08/17 19:29:00 CDT Notes: (Same as: Benadryl) Start Date: 07/08/17 Stop Date: 07/08/17 Status: Completed Benadryl 30 mg, 0.6 mL, Route: IVP, Drug form: INJ, ONCALL, Start date: 07/15/17 9:30:00 CDT, Duration: 10 hr, Stop date: 07/15/17 19:29:00 CDT Notes: (Same as: Benadryl) Start Date: 07/15/17 Stop Date: 07/15/17 Status: Completed Benadryl 30 mg, 0.6 mL, Route: IVP, Drug form: INJ, ONCALL, Start date: 07/22/17 9:30:00 CDT, Duration: 10 hr, Stop date: 07/22/17 19:29:00 CDT Notes: (Same as: Benadryl) Start Date: 07/22/17 Stop Date: 07/22/17 Status: Completed dexamethasone + Sodium Chloride 0.9% IV 47.5 mL 10 mg, 2.5 mL, Route: IVPB, Drug form: INJ, ONCALL, Start date: 07/22/17 9:30:00 CDT, Duration: 10 hr, Stop date: 07/22/17 19:29:00 CDT Notes: PROTECT FROM LIGHT Start Date: 07/22/17 Stop Date: 07/22/17 Status: Completed dexamethasone + Sodium Chloride 0.9% IV 47.5 mL 10 mg, 2.5 mL, Route: IVPB, Drug form: INJ, ONCALL, Start date: 07/08/17 9:30:00 CDT, Duration: 10 hr, Stop date: 07/08/17 19:29:00 CDT Start Date: 07/08/17 Stop Date: 07/08/17 Status: Completed dexamethasone + Sodium Chloride 0.9% IV 47.5 mL 10 mg, 2.5 mL, Route: IVPB, Drug form: INJ, ONCALL, Start date: 07/15/17 9:30:00 CDT, Duration: 10 hr, Stop date: 07/15/17 19:29:00 CDT Notes: PROTECT FROM LIGHT Start Date: 07/15/17 Stop Date: 07/15/17 Status: Completed famotidine 20 mg, 1 tab, Route: PO, Drug form: TAB, ONCALL, Start date: 07/22/17 9:30:00 CD T, Duration: 10 hr, Stop date: 07/22/17 19:29:00 CDT Notes: (Same as: Pepcid) Start Date: 07/22/17 Stop Date: 07/22/17 Status: Completed famotidine 20 mg, 1 tab, Route: PO, Drug form: TAB, ONCALL, Start date: 07/15/17 9:30:00 CD T, Duration: 10 hr, Stop date: 07/15/17 19:29:00 CDT Notes: (Same as: Pepcid) Start Date: 07/15/17 Stop Date: 07/15/17 Status: Completed famotidine 20 mg, 1 tab, Route: PO, Drug form: TAB, ONCALL, Start date: 07/08/17 9:30:00 CD T, Duration: 10 hr, Stop date: 07/08/17 19:29:00 CDT Notes: (Same as: Pepcid) Start Date: 07/08/17 Stop Date: 07/08/17 Status: Completed iron dextran + Sodium Chloride 0.9% IV 490 mL 500 mg, 10 mL, Route: IVPB, Drug form: INJ, ONCALL, Start date: 07/22/17 9:30:00 CDT, Duration: 10 hr, Stop date: 07/22/17 19:29:00 CDT Notes: (Same as:DexFerrum)Non Formulary MEDICATION WASTE Product Size: 100 mgProduct Wasted: ___ mg Start Date: 07/22/17 Stop Date: 07/22/17 Status: Completed iron dextran + Sodium Chloride 0.9% IV 490 mL 500 mg, 10 mL, Route: IVPB, Drug form: INJ, ONCALL, Start date: 07/08/17 9:30:00 CDT, Duration: 10 hr, Stop date: 07/08/17 19:29:00 CDT Notes: (Same as:DexFerrum)Non Formulary MEDICATION WASTE Product Size: 100 mgProduct Wasted: ___ mg Start Date: 07/08/17 Stop Date: 07/08/17 Status: Completed iron dextran + Sodium Chloride 0.9% IV 490 mL 500 mg, 10 mL, Route: IVPB, Drug form: INJ, ONCALL, Start date: 07/15/17 9:30:00 CDT, Duration: 10 hr, Stop date: 07/15/17 19:29:00 CDT Notes: (Same as:DexFerrum)Non Formulary MEDICATION WASTE Product Size: 100 mgProduct Wasted: ___ mg Start Date: 07/15/17 Stop Date: 07/15/17 Status: Ordered Myrbetriq 25 mg oral tablet, extended release 25 mg=1 tab, PO, PRN, # 30 tab, 5 Refill(s) Start Date: 07/15/17 Status: Ordered sodium chloride 0.9% INJ 250 mL, PYXIS, ONCE, Start date: 07/15/17 9:30:00 CDT Start Date: 07/15/17 Stop Date: 07/15/17 Status: Completed Results No data available for [...]
--- OUTSIDE RECORDS SUMMARY | 2018-02-17 07:54 | XMS REPORT | Summary of Care ---
Author Organization Unknown Address Unknown Phone Unavailable Encounter HQ Angely_sayra(CATHERINE) [id number] Date(s): 10/14/13 - 10/14/13 [facility] [id number] [address] Discharge Disposition: Home Physician Attending: Kirt Hu MD Physician_Referring: Kirt Hu MD Reason for Visit 518.89 ABNORMALITY OF LUNG Problem List Condition Effective Dates Status Health Status Informant cardiomyopathy(Confi Active rmed) cholesterol(Confirme Active d) heartburn(Confirmed) Active hypertension(Confirm Active ed) iron Active deficiency(Confirmed ) urinary Active problem(Confirmed) viral(Confirmed) Resolved Allergies, Adverse Reactions, Alerts Substance Reaction Severity Status codeine hallucination Active Tape breaks skin Active Medications No data available for this section Medications Administered During Your Visit No data available for this section Immunizations No data available for this section Social History Social History Type Response Alcohol Use: Current, Previous treatment: None Smoking Status Never smoker, Exposure to Tobacco Smoke None, Cigarette Smoking Last 365 Days No, Reg Smoking Cessation Counseling No
[2018-02-17 10:28] VITALS: BP 134/81
--- NOTE | 2018-02-17 13:12 | Operative Report ---
DATE OF PROCEDURE: February 17, 2018 PREOPERATIVE DIAGNOSES 1. Hematoma left cheek. 2. Hematoma left upper lip. POSTOPERATIVE DIAGNOSES 1. Hematoma left cheek. 1. Hematoma left upper lip. PROCEDURES PERFORMED 1. Evacuation of hematoma left cheek. 2. Evacuation of hematoma left upper lip. ANESTHESIA: MAC/local. HISTORY: The patient is a 77-year-old female who the week before fell and sustained contusions of the left cheek and the left upper lip. She has a well-organized hematoma of the left cheek as well as the left upper lip. The risks, benefits, alternatives of treatment were discussed with the patient. She is prepared to undergo the procedures outlined. DETAILS OF PROCEDURE: Patient was marked preoperatively in the holding area. She was brought to the operating theater. After the induction of adequate IV sedation, she was prepped and draped in a supine position. A time out was performed. The lateral infraorbital rim on the left side was infiltrated with 1% Xylocaine with epinephrine. Approximately 2 to 3 mL was used. The left upper lip was infiltrated with 1% Xylocaine with epinephrine, and 2 to 3 mL was used. After waiting an appropriate amount of time for maximum vasoconstrictive effect, the incision in the left infraorbital rim was incised through the skin and subcutaneous tissues. Bleeding was controlled using the electrocautery. Using blunt dissection to the orbicularis oculi muscle, the hematoma cavity of the left cheek was entered. The organized hematoma was evacuated, and then the cavity was irrigated until all the effluent was clear. The wound was then closed with 5-0 chromic sutures in an interrupted fashion. On the oral surface of the left upper lip, the organized hematoma was identified. The mucosa was incised, and using blunt dissection the orbicularis chacho muscle was bluntly dissected and the hematoma was evacuated. The wound was irrigated with bacteriostatic saline and the closed with 5-0 chromic sutures in an interrupted fashion. A Steri-Strip was applied to the incision on the infraorbital rim. The patient was returned to the recovery room in satisfactory condition and discharged with a postoperative instruction sheet as well as a followup appointment. Job#: [id number] EV
== END | disposition home or self-care (01) ==
LOC: OR 07:50
PROVIDERS: ATTEND Plastic Surgery
DX: S00.83XA Contusion of other part of head, initial encounter (principal); I10 Essential (primary) hypertension; Z91.048 Other nonmedicinal substance allergy status; J98.4 Other disorders of lung; D75.9 Disease of blood and blood-forming organs, unspecified
CPT/HCPCS: 10140; 40801; J0690; J2001; J2704

== ENCOUNTER 2018-09-09 13:14 | Inpatient (IN) | payer MEDICARE, OTHER ==
[~2018-09-09] VITALS: Ht 170.2 cm; Wt 59.0 kg
[~2018-09-09 13:14] MED LIST changes: -CEFAZOLIN SOD 1 GM/D5W 50ML 50 ML IV ONE; -LIDOCAINE 1% W/EPINEPHRINE 20 ML VIAL ONE; -LIDOCAINE HCL 2% LOCAL INJ 5 ML SDV VIAL INJ ONE; -PROPOFOL IV EMULSION 10 MG/ML 20 ML VIAL ONE
--- OUTSIDE RECORDS SUMMARY | 2018-09-09 13:17 | XMS REPORT | Continuity of Care Document ---
Author Author OANDA [facility] Address Unknown Phone Unavailable Care Team Providers Care Research Methods Instructor Name Role Phone [facility] Unavailable Unavailable Problems Problem Status Onset Date Classification Date Reported Comments Source INFED 500MG /// CPT: J1750, 58130 /// DX Active 06/30/2017 [facility] Other disorders of lung 04/26/2017 07/29/2017 [facility] [place] PROCRIT 40,000 UNITS WEEKLY X4, J0885, C Active 04/02/2016 [facility] PROCRIT 40,000 UNITS WEEKLY X4, J0885 Active 04/02/2016 [facility] INFED 500 MG J1750, CPT-59642, D46.9, D6 Active 02/28/2016 [facility] D46.9 Active 01/26/2015 [facility] 518.89 ABNORMALITY OF LUNG Active 10/12/2013 [facility] Cardiac dysrhythmia, unspecified Resolved Problem 08/09/2017 [facility] [place] Chronic anemia Active Problem 08/09/2017 [facility] [place] Fecal incontinence Resolved Problem 08/09/2017 [facility] [place] Myelodysplastic syndrome Resolved Problem 08/09/2017 [facility] [place] Rectocele Resolved Problem 08/09/2017 [facility] [place] Ventricular tachycardia Resolved Problem 08/09/2017 [facility] [place] cardiomyopathy Active Problem 10/16/2013 [facility] cholesterol Active Problem 10/16/2013 [facility] heartburn Active Problem 10/16/2013 [facility] hypertension Active Problem 10/16/2013 [facility] iron deficiency Active Problem 10/16/2013 [facility] viral Resolved Problem 10/16/2013 [facility] MYELODYSPLASTIC SYNDROME, UNSPECIFIED Active [facility] OTHER LUNG DISEASE NEC Active [facility] ANEMIA IN CHRONIC KIDNEY DISEASE Active [facility] IRON DEFICIENCY ANEMIA, UNSPECIFIED Active [facility] Medications Medication Details Route Status Patient Instructions Ordering Provider Order Date Source dexamethasone + Sodium Chloride 0.9% IV 47.5 mL 10 mg, 2.5 mL, Route: IVPB, Drug form: INJ, ONCALL, Start date: 07/22/17 9:30:00 CDT, Duration: 10 hr, Stop date: 07/22/17 19:29:00 CDTNotes: PROTECT FROM LIGHT Inactive 07/22/2017 [facility] iron dextran + Sodium Chloride 0.9% IV 490 mL 500 mg, 10 mL, Route: IVPB, Drug form: INJ, ONCALL, Start date: 07/22/17 9:30:00 CDT, Duration: 10 hr, Stop date: 07/22/17 19:29:00 CDTNotes: (Same as:DexFerrum) Non Formulary MEDICATION WASTE Product Size: 100 mg Product Wasted: ___ mg Inactive 07/22/2017 [facility] famotidine 20 mg, 1 tab, Route: PO, Drug form: TAB, ONCALL, Start date: 07/22/17 9:30:00 CDT, Duration: 10 hr, Stop date: 07/22/17 19:29:00 CDTNotes: (Same as: Pepcid) Inactive 07/22/2017 [facility] Benadryl 30 mg, 0.6 mL, Route: IVP, Drug form: INJ, ONCALL, Start date: 07/22/17 9:30:00 CDT, Duration: 10 hr, Stop date: 07/22/17 19:29:00 CDTNotes: (Same as: Benadryl) Inactive 07/22/2017 [facility] 24 HR mirabegron 25 MG Extended Release Tablet [Myrbetriq] 25 mg=1 tab, PO, PRN, # 30 tab, 5 Refill(s) Active 07/15/2017 [facility] sodium chloride 0.9% INJ 250 mL, PYXIS, ONCE, Start date: 07/15/17 9:30:00 CDT Inactive 07/15/2017 [facility] famotidine 20 mg, 1 tab, Route: PO, Drug form: TAB, ONCALL, Start date: 07/15/17 9:30:00 CDT, Duration: 10 hr, Stop date: 07/15/17 19:29:00 CDTNotes: (Same as: Pepcid) Inactive 07/15/2017 [facility] Benadryl 30 mg, 0.6 mL, Route: IVP, Drug form: INJ, ONCALL, Start date: 07/15/17 9:30:00 CDT, Duration: 10 hr, Stop date: 07/15/17 19:29:00 CDTNotes: (Same as: Benadryl) Inactive 07/15/2017 [facility] iron dextran + Sodium Chloride 0.9% IV 490 mL 500 mg, 10 mL, Route: IVPB, Drug form: INJ, ONCALL, Start date: 07/15/17 9:30:00 CDT, Duration: 10 hr, Stop date: 07/15/17 19:29:00 CDTNotes: (Same as:DexFerrum) Non Formulary MEDICATION WASTE Product Size: 100 mg Product Wasted: ___ mg Inactive 07/15/2017 [facility] dexamethasone + Sodium Chloride 0.9% IV 47.5 mL 10 mg, 2.5 mL, Route: IVPB, Drug form: INJ, ONCALL, Start date: 07/15/17 9:30:00 CDT, Duration: 10 hr, Stop date: 07/15/17 19:29:00 CDTNotes: PROTECT FROM LIGHT Inactive 07/15/2017 [facility] iron dextran + Sodium Chloride 0.9% IV 490 mL 500 mg, 10 mL, Route: IVPB, Drug form: INJ, ONCALL, Start date: 07/08/17 9:30:00 CDT, Duration: 10 hr, Stop date: 07/08/17 19:29:00 CDTNotes: (Same as:DexFerrum) Non Formulary MEDICATION WASTE Product Size: 100 mg Product Wasted: ___ mg Inactive 07/08/2017 [facility] dexamethasone + Sodium Chloride 0.9% IV 47.5 mL 10 mg, 2.5 mL, Route: IVPB, Drug form: INJ, ONCALL, Start date: 07/08/17 9:30:00 CDT, Duration: 10 hr, Stop date: 07/08/17 19:29:00 CDT Inactive 07/08/2017 [facility] Benadryl 30 mg, 0.6 mL, Route: IVP, Drug form: INJ, ONCALL, Start date: 07/08/17 9:30:00 CDT, Duration: 10 hr, Stop date: 07/08/17 19:29:00 CDTNotes: (Same as: Benadryl) Inactive 07/08/2017 [facility] famotidine 20 mg, 1 tab, Route: PO, Drug form: TAB, ONCALL, Start date: 07/08/17 9:30:00 CDT, Duration: 10 hr, Stop date: 07/08/17 19:29:00 CDTNotes: (Same as: Pepcid) Inactive 07/08/2017 [facility] Procrit 40,000 unit, 2 mL, Route: SUB-Q, Drug form: INJ, ONCALL, Start date: 04/16/16 9:30:00 MANGLE CATCHER, Duration: 12 hr, Stop date: 04/16/16 21:29:00 CSTNotes: (Same as: Procrit) Procrit 20,000 unit/ml VL. For non- dialysis use in adult only. WASTE: F/P - Red; E -Red To be used in dialysis for children; Contains different preservative. No Longer Active 04/16/2016 [facility] Procrit 40,000 unit, 1 mL, Route: SUB-Q, Drug form: INJ, ONCALL, Start date: 04/09/16 9:30:00 MANGLE CATCHER, Duration: 1 day, Stop date: 04/10/16 9:29:00 CSTNotes: (Same as: Procrit) epoetin madeline 34723 unit/1 ml VL. For non- dialysis use only. MEDICATION WASTE Product Size: 25114 unit Product Wasted: ___ unit Inactive 04/09/2016 [facility] Pepcid 20 mg, 2 mL, Route: IVP, Drug form: INJ, ONCALL, Start date: 04/09/16 8:00:00 MANGLE CATCHER, Duration: 12 hr, Stop date: 04/09/16 19:59:00 CSTNotes: (Same as: Pepcid) Can be dilute in 5-10cc NS IVP: Slow IV push over at least 2 minutes. Inactive 04/09/2016 [facility] Benadryl + sodium chloride 0.9% INJ 50 mL 25 mg, 0.5 mL, Route: IVPB, Drug form: INJ, ONCALL, Start date: 04/09/16 8:00:00 MANGLE CATCHER, Duration: 12 hr, Stop date: 04/09/16 19:59:00 CSTNotes: (Same as: Benadryl) Inactive 04/09/2016 [facility] dexamethasone + sodium chloride 0.9% INJ 50 mL 10 mg, 2.5 mL, Route: IVPB, Drug form: INJ, ONCALL, Start date: 04/09/16 8:00:00 MANGLE CATCHER, Duration: 12 hr, Stop date: 04/09/16 19:59:00 CSTNotes: PROTECT FROM LIGHT Inactive 04/09/2016 [facility] Sodium Chloride 0.9% IV IV, 30 ml/hr, ONCALL, Start date: 04/09/16 8:00:00 MANGLE CATCHER, Duration: 12, 250 ml Inactive 04/09/2016 [facility] Procrit 40,000 unit, 2 mL, Route: SUB-Q, Drug form: INJ, ONCALL, Start date: 04/09/16 8:00:00 MANGLE CATCHER, Duration: 12 hr, Stop date: 04/09/16 19:59:00 CSTNotes: (Same as: Procrit) Procrit 20,000 unit/ml VL. For non- dialysis use in adult only. WASTE: F/P - Red; E -Red To be used in dialysis for children; Contains different preservative. Inactive 04/09/2016 [facility] DexFerrum + sodium chloride 0.9% 500 ml INJ 490 mL 500 mg, 10 mL, Route: IVPB, Drug form: INJ, ONCALL, Start date: 04/02/16 9:00:00 MANGLE CATCHER, Duration: 8 hr, Stop date: 04/02/16 16:59:00 CSTNotes: (Same as:DexFerrum) Non-Formulary PROTECT FROM LIGHT Inactive 04/02/2016 [facility] Pepcid 20 mg, 2 mL, Route: IVP, Drug form: INJ, ONCALL, Start date: 04/02/16 9:00:00 MANGLE CATCHER, Duration: 8 hr, Stop date: 04/02/16 16:59:00 CSTNotes: (Same as: Pepcid) Can be dilute in 5-10cc NS IVP: Slow IV push over at least 2 minutes. Inactive 04/02/2016 [facility] dexamethasone + sodium chloride 0.9% INJ 50 mL 10 mg, 2.5 mL, Route: IVPB, Drug form: INJ, ONCALL, Start date: 04/02/16 9:00:00 MANGLE CATCHER, Duration: 8 hr, Stop date: 04/02/16 16:59:00 CSTNotes: PROTECT FROM LIGHT Inactive 04/02/2016 [facility] Benadryl 25 mg, 0.5 mL, Route: IVP, Drug form: INJ, ONCALL, Start date: 04/02/16 9:00:00 MANGLE CATCHER, Duration: 12 hr, Stop date: 04/02/16 20:59:00 CSTNotes: (Same as: Benadryl) Inactive 04/02/2016 [facility] Sodium Chloride 0.9% IV IV, 30 ml/hr, ONCALL, Start date: 04/02/16 9:00:00 MANGLE CATCHER, Duration: 8, 250 ml Inactive 04/02/2016 [facility] DexFerrum + sodium chloride 0.9% 500 ml INJ 490 mL 500 mg, 10 mL, Route: IVPB, Drug form: INJ, ONCALL, Start date: 03/26/16 9:30:00 MANGLE CATCHER, Duration: 8 hr, Stop date: 03/26/16 17:29:00 CSTNotes: (Same as:DexFerrum) Non-Formulary PROTECT FROM LIGHT Inactive 03/26/2016 [facility] Pepcid 20 mg, 2 mL, Route: IVP, Drug form: INJ, ONCALL, Start date: 03/26/16 9:30:00 MANGLE CATCHER, Duration: 8 hr, Stop date: 03/26/16 17:29:00 CSTNotes: (Same as: Pepcid) Can be dilute in 5-10cc NS IVP: Slow IV push over at least 2 minutes. Inactive 03/26/2016 [facility] Benadryl + sodium chloride 0.9% INJ 50 mL 25 mg, 0.5 mL, Route: IVPB, Drug form: INJ, ONCALL, Start date: 03/26/16 9:30:00 MANGLE CATCHER, Duration: 8 hr, Stop date: 03/26/16 17:29:00 CSTNotes: (Same as: Benadryl) Inactive 03/26/2016 [facility] dexamethasone + sodium chloride 0.9% INJ 50 mL 10 mg, 2.5 mL, Route: IVPB, Drug form: INJ, ONCALL, Start date: 03/26/16 9:30:00 MANGLE CATCHER, Duration: 8 hr, Stop date: 03/26/16 17:29:00 CSTNotes: PROTECT FROM LIGHT Inactive 03/26/2016 [facility] Sodium Chloride 0.9% IV IV, 30 ml/hr, ONCALL, Start date: 03/26/16 9:30:00 MANGLE CATCHER, Duration: 8, 250 ml Inactive 03/26/2016 [facility] Pepcid 20 mg, 2 mL, Route: IVP, Drug form: INJ, ONCALL, Start date: 03/19/16 9:30:00 MANGLE CATCHER, Duration: 8 hr, Stop date: 03/19/16 17:29:00 CSTNotes: (Same as: Pepcid) Can be dilute in 5-10cc NS IVP: Slow IV push over at least 2 minutes. Inactive 03/19/2016 [facility] Benadryl + sodium chloride 0.9% INJ 50 mL 25 mg, 0.5 mL, Route: IVPB, Drug form: INJ, ONCALL, Start date: 03/19/16 9:30:00 MANGLE CATCHER, Duration: 8 hr, Stop date: 03/19/16 17:29:00 CSTNotes: (Same as: Benadryl) Inactive 03/19/2016 [facility] dexamethasone + sodium chloride 0.9% INJ 50 mL 10 mg, 2.5 mL, Route: IVPB, Drug form: INJ, ONCALL, Start date: 03/19/16 9:30:00 MANGLE CATCHER, Duration: 8 hr, Stop date: 03/19/16 17:29:00 CSTNotes: PROTECT FROM LIGHT Inactive 03/19/2016 [facility] DexFerrum + sodium chloride 0.9% 500 ml INJ 490 mL 500 mg, 10 mL, Route: IVPB, Drug form: INJ, ONCALL, Start date: 03/19/16 9:30:00 MANGLE CATCHER, Duration: 8 hr, Stop date: 03/19/16 17:29:00 CSTNotes: (Same as:DexFerrum) Non-Formulary PROTECT FROM LIGHT Inactive 03/19/2016 [facility] Sodium Chloride 0.9% IV IV, 30 ml/hr, ONCALL, Start date: 03/18/16 16:00:00 MANGLE CATCHER, Duration: 8, 250 ml Inactive 03/18/2016 [facility] Pepcid 20 mg, 2 mL, Route: IVP, Drug form: INJ, ONCALL, Start date: 03/13/16 10:00:00 MANGLE CATCHER, Duration: 8 hr, Stop date: 03/13/16 17:59:00 CSTNotes: (Same as: Pepcid) Can be dilute in 5-10cc NS IVP: Slow IV push over at least 2 minutes. No Longer Active 03/13/2016 [facility] Sodium Chloride 0.9% IV IV, 30 ml/hr, PRN, PRN Line Flush, Start date: 03/12/16 10:00:00 MANGLE CATCHER, Duration: 8, 250 ml Inactive 2016 [facility] dexamethasone + sodium chloride 0.9% INJ 50 mL 10 mg, 2.5 mL, Route: IVPB, Drug form: INJ, ONCALL, Start date: 03/12/16 10:00:00 MANGLE CATCHER, Duration: 8 hr, Stop date: 03/12/16 17:59:00 CSTNotes: PROTECT FROM LIGHT Inactive 2016 [facility] DexFerrum + sodium chloride 0.9% 500 ml INJ 490 mL 500 mg, 10 mL, Route: IVPB, Drug form: INJ, ONCALL, Start date: 03/12/16 10:00:00 MANGLE CATCHER, Duration: 8 hr, Stop date: 03/12/16 17:59:00 CSTNotes: (Same as:DexFerrum) Non-Formulary PROTECT FROM LIGHT Inactive 2016 [facility] Procrit 40,000 unit, 2 mL, Route: SUB-Q, Drug form: INJ, ONCALL, Start date: 03/12/16 10:00:00 MANGLE CATCHER, Duration: 8 hr, Stop date: 03/12/16 17:59:00 CSTNotes: (Same as: Procrit) Procrit 20,000 unit/ml VL. For non- dialysis use in adult only. To be used in dialysis for children; Contains different preservative. Inactive 2016 [facility] Benadryl + sodium chloride 0.9% INJ 50 mL 25 mg, 0.5 mL, Route: IVPB, Drug form: INJ, ONCALL, Start date: 03/12/16 10:00:00 MANGLE CATCHER, Duration: 8 hr, Stop date: 03/12/16 17:59:00 CSTNotes: (Same as: Benadryl) Inactive 2016 [facility] Procrit 40,000 unit, 2 mL, Route: SUB-Q, Drug form: INJ, ONCALL, Start date: 02/20/15 9:00:00, Duration: 12 hr, Stop date: 02/20/15 20:59:00Notes: (Same as: Procrit) Procrit 20,000 unit/ml VL. For non-dialysis use in adult only. To be used in dialysis for children; Contains different preservative. Inactive 02/20/2015 [facility] Procrit 40,000 unit, 2 mL, Route: SUB-Q, Drug form: INJ, ONCALL, Start date: 02/13/15 11:00:00, Duration: 8 hr, Stop date: 02/13/15 18:59:00Notes: (Same as: Procrit) Procrit 20,000 unit/ml VL. For non-dialysis use in adult only. To be used in dialysis for children; Contains different preservative. Inactive 02/13/2015 [facility] Procrit 40,000 unit, 2 mL, Route: SUB-Q, Drug form: INJ, ONCALL, Start date: 02/06/15 9:00:00, Duration: 8 hr, Stop date: 02/06/15 16:59:00Notes: (Same as: Procrit) Procrit 20,000 unit/ml VL. For non-dialysis use in adult only. To be used in dialysis for children; Contains different preservative. Inactive 02/06/2015 [facility] epoetin madeline 40,000 unit, 2 mL, Route: SUB-Q, Drug form: INJ, ONCALL, Start date: 01/30/15 12:00:00, Duration: 8 hr, Stop date: 01/30/15 19:59:00Notes: (Same as: Procrit) Procrit 20,000 unit/ml VL. For non-dialysis use in adult only. To be used in dialysis for children; Contains different preservative. Inactive 01/30/2015 [facility] Allergies, Adverse Reactions, Alerts Substance Category Reaction Severity Reaction type Status Date Reported Comments Source codeine Assertion hallucination Drug allergy Active [facility] Tape Assertion breaks skin Drug allergy Active [facility] Immunizations No Data Provided for This Section Results No Data Provided for This Section Pathology Reports No Data Provided for This Section Diagnostic Reports Report Value Date Source Chest 2 views DX EXAM: XR CHEST 2 VIEWS DATE: 04/22/2017 11:14 AM MANGLE CATCHER INDICATION: - J98.4 Other disorders of lung COMPARISON: Chest CT dated 10/14/2013 TECHNIQUE: PA and lateral chest radiographs FINDINGS: The lungs are clear. The cardiomediastinal silhouette is normal. There is no acute bony abnormality. IMPRESSION: No acute abnormality 04/22/2017 ELIEL Ragland Consultation Notes No Data Provided for This Section Discharge Summaries No Data Provided for This Section History and Physicals No Data Provided for This Section Vital Signs Vital Sign Value Date Comments Source Systolic (mm Hg) 120 07/22/2017 [facility] Diastolic (mm Hg) 74 07/22/2017 [facility] Heart Rate 74 07/22/2017 [facility] Respitory Rate 18 07/22/2017 [facility] Temperature Oral (F) 97.5 F 07/22/2017 [facility] Temperature Oral (F) 97.7 F 07/08/2017 [facility] Respitory Rate 18 07/08/2017 [facility] Systolic (mm Hg) 110 07/08/2017 [facility] Diastolic (mm Hg) 68 07/08/2017 [facility] Heart Rate 70 07/08/2017 [facility] BMI Calculated 20.35 07/07/2017 [facility] Weight 58.8 07/07/2017 [facility] Height 170 cm 07/07/2017 [facility] Systolic (mm Hg) 134 04/02/2016 [facility] Diastolic (mm Hg) 70 04/02/2016 [facility] Heart Rate 66 04/02/2016 [facility] Respitory Rate 16 04/02/2016 [facility] Temperature Oral (F) 98 F 04/02/2016 [facility] Respitory Rate 18 03/26/2016 [facility] Temperature Oral (F) 97.8 F 03/26/2016 [facility] Heart Rate 72 03/26/2016 [facility] Systolic (mm Hg) 106 03/26/2016 [facility] Diastolic (mm Hg) 65 03/26/2016 [facility] Systolic (mm Hg) 135 03/19/2016 [facility] Diastolic (mm Hg) 77 03/19/2016 [facility] Respitory Rate 18 03/19/2016 [facility] Temperature Oral (F) 98.1 F 03/19/2016 [facility] Heart Rate 65 03/19/2016 [facility] Weight 58.8 03/08/2016 [facility] BMI Calculated 20.32 03/08/2016 [facility] Height 170.1 cm 03/08/2016 [facility] Height 170.18 cm 01/30/2015 [facility] BMI Calculated 20.3 01/30/2015 [facility] Weight 58.8 01/30/2015 [facility] Encounters Location Location Details Encounter Type Encounter Number Reason For Visit Attending Provider ADM Date DC Date Status Source [facility] [id number] Kirt Hu 10/14/2013 10/15/2013 [facility] OP Recurring [id number] Ping Salazar 01/30/2015 03/01/2015 [facility] Recurring [id number] Ping Salazar 2016 04/11/2016 [facility] Recurring [id number] Ping Salazar 04/09/2016 05/09/2016 [facility] [place] [facility] [id number] Kirt Hu 04/22/2017 04/23/2017 [facility] [place] [facility] Recurring [id number] Ping Salazra 07/08/2017 08/07/2017 [facility] Procedures Procedure Code Date Perfomer Comments Source Rotator cuff repair [id number] 03/10/2009 [facility] Rotator cuff repair [id number] 03/10/2009 [facility] [place] Hysterectomy [id number] 03/10/1974 [facility] Hysterectomy [id number] 03/10/1974 [facility] [place] Repair of rectocele [id number] [facility] Infusion<sup>1</sup> [id number] bi-annual Infed infusions for chronic iron deficiency anemia [facility] [place] Repair of rectocele [id number] [facility] [place] Infusion<sup>1</sup> [id number] bi-annual Infed infusions for chronic iron deficiency anemia [facility] Assessment and Plan No Data Provided for This Section Plan of Care No Data Provided for This Section Social History Social History Date Source Social History TypeResponse Alcohol Current, Previous treatment: None. Smoking Status Never smoker; Exposure to Tobacco Smoke None; Cigarette Smoking Last 365 Days No; Reg Smoking Cessation Counseling No entered on: 07/22/17 02/12/2013 [facility] Social History TypeResponse Alcohol Current, Previous treatment: None. Smoking Status Never smoker; Exposure to Tobacco Smoke None; Cigarette Smoking Last 365 Days No; Reg Smoking Cessation Counseling No entered on: 07/22/17 02/12/2013 [facility] Family History No Data Provided for This Section Advance Directives No Data Provided for This Section Functional Status No Data Provided for This Section
[2018-09-09 13:48] LABS: BASOPHILS # (AUTO) 0.1 (0.0-0.1); BASOPHILS % 0.7 % (0.0-1.0); EOSINOPHILS # (AUTO) 0.1 (0.0-0.4); EOSINOPHILS % 1.8 % (0.0-6.0); HEMATOCRIT 29.4 % (34.2-44.1); HEMOGLOBIN 9.7 g/dL (12.0-16.0); LYMPHOCYTES # (AUTO) 1.4 (1.0-3.2); LYMPHOCYTES % 18.9 % (18.0-39.1); MEAN CORPUSCULAR HEMOGLOBIN 30.2 pg (28-32); MEAN CORPUSCULAR VOLUME 91.6 fL (81-99); MONOCYTES # (AUTO) 0.5 (0.2-0.8); NEUTROPHILS # (AUTO) 5.1 (2.1-6.9); NEUTROPHILS % 71.3 % (38.7-80.0); PLATELET COUNT 277 x10e3/uL (140-360); RED BLOOD COUNT 3.21 x10e6/uL (3.6-5.1); RED CELL DISTRIBUTION WIDTH 14.9 % (11.7-14.4)
[2018-09-09 13:59] LABS: INR 0.87; PROTHROMBIN TIME 12.3 seconds (11.9-14.5)
[2018-09-09 14:00] LABS: PARTIAL THROMBOPLASTIN TIME 27.6 seconds (23.8-35.5)
[2018-09-09 14:06] LABS: ALBUMIN 3.1 g/dL (3.5-5.0); ALBUMIN/GLOBULIN RATIO 1.1 (0.8-2.0); ANION GAP 13.1 mmol/L (8-16); CALCIUM 9.3 mg/dL (8.4-10.2); CREATININE, SERUM 1.23 mg/dL (0.57-1.11); POTASSIUM 4.1 mmol/L (3.5-5.1)
--- NOTE | 2018-09-09 15:08 | Diagnostic Imaging Report ---
PROCEDURE:CT PELVIS WITHOUT CONTRAST COMPARISON:None. INDICATIONS:fall TECHNIQUE:Helical axial CT images of the pelvis were obtained without intravenous contrast. Coronal and sagittal reformatted images were available for review. FINDINGS: PELVIC NODES:No pelvic sidewall or lower retroperitoneal lymphadenopathy. PELVIC ORGANS:Urinary bladder is unremarkable. Uterus is presumably been removed. No adnexal mass. The large bowel is notable for multiple sigmoid diverticula without wall thickening or adjacent inflammatory change. The appendix is not definitively identified. No right lower quadrant inflammation. Normal caliber small bowel loops within the pelvis. Extensive atherosclerotic calcification of the visualized iliac arterial systems. BONES:Diffuse osteopenia. Suspected nondisplaced fracture of the right femoral neck (series 5, image 68). Degenerative disc changes are with scoliotic curvature and facet arthropathy of the lumbar spine. Symmetric degenerative arthrosis of the hips. Nonaggressive appearing sclerotic focus in the left acetabular roof may represent an osteoma. Soft tissues: Lobulated, non-enhancing fluid collection in the right inguinal region which may reflect a seroma. Surgical geovanni adjacent to the right and left anterior acetabula. Partially visualized 6.7 cm soft tissue hematoma adjacent to the right greater trochanter. Calcifications at the adjacent myotendinous junctions bilaterally. CONCLUSION: Large soft tissue contusion/hematoma adjacent to the proximal right femur with an underlying nondisplaced fracture of the femoral neck. Background diffuse osteopenia. Additional findings include atherosclerotic vascular disease, large bowel diverticulosis without diverticulitis, and a small right inguinal nonenhancing fluid collection, likely a seroma. Dictated by: Fortino Roberts M.D. on 09/09/2018 at 15:12 Electronically approved by: Fortino Roberts M.D. on 09/09/2018 at 15:12
--- NOTE | 2018-09-09 15:25 | Diagnostic Imaging Report ---
EXAMINATION: Head, maxillofacial and cervical spine CT without contrast. HISTORY: Status post fall, trauma, head and face pain COMPARISON: Head CT 01/22/2018 TECHNIQUE: Multidetector axial images were obtained without contrast from the foramen magnum to the vertex and over the face and cervical spine. The images were reconstructed using brain and bone algorithms. Thin section brain images were reformatted into coronal and sagittal planes. Dose modulation, iterative reconstruction, and/or weight based adjustment of the mA/kV was utilized to reduce the radiation dose to as low as reasonably achievable. Head CT findings: Skull: No lytic or blastic lesions. No fractures. Parenchyma: Persistent minimal chronic microvascular ischemic changes. No mass, hemorrhage or CT evidence of acute vascular insult. Brain volume: Normal for age. Ventricles: No hydrocephalus or displacement. Arteries: No density suggestive of thrombus. Dural sinuses: No abnormal density. Extra-axial spaces: No abnormal density. Foramen magnum: No mass, Chiari malformation, or basilar invagination. Sella: No obvious mass. Paranasal/mastoid sinuses: Imaged portions unremarkable. Face CT findings: Bones: No acute displaced facial fractures . Again noted degenerative changes of the right TMJ. Facial soft tissues: Prominent premandibular/symphyseal and parasymphyseal regions soft tissue swelling and hematoma. Interval resolution of previously seen left premaxillary soft tissues hematoma. Orbits contents: Replacement lenses likely from prior cataract surgery Paranasal sinuses and drainage pathways: Mucosal inflammatory thickening and partial opacification with bubbling appearing material the left sphenoid sinus. Prominent mucosal inflammatory thickening and partial opacification of the left maxillary sinus with few tiny calcifications, as well as thickened/sclerotic wells related to chronic process.. Nasal septum and nasal cavities: Mild right posterior deviation with small bone spur Anatomic variations: No significant anatomic variations. Teeth: No acute abnormality of the visualized teeth. Cervical spine CT: Fractures: None. Soft tissue injuries: None. Atlantoaxial articulation: Intact with moderate degenerative changes. Unchanged mild asymmetry of the lateral atlantal dental intervals which may be due to advanced degenerative changes and chronic compression of the left lateral mass of C1. Alignment: Straightened cervical curvature. Approximately 3 mm anterolisthesis of C4 on C5 and 4 mm anterolisthesis of C6 on C7 and change compared to prior study. Cervicomedullary junction: No abnormalities. The foramen magnum is patent. Soft tissues: No gross acute abnormalities. Vertebrae: No fractures, infection or neoplasm. Degenerative changes: Moderate degenerative changes at the atlantodental, left C1-C2 lateral mass and right atlantooccipital articulations Multilevel disc degeneration, moderate from C2 to C4 and severe from C4 to C7. Anterolisthesis of C4 on C5 with associated uncovered disc/disc osteophyte complex results in mild canal stenosis. Mild canal stenosis at C5-C6 due to a disc osteophyte complex measuring degrees of multilevel moderate to severe facet arthrosis. The left C2-C3 and right C3-C4 facets are fused. Multilevel uncovertebral facet arthrosis result in multilevel foraminal stenosis (mild right at C3-C4 moderate left and mild right at C4-C5, moderate bilaterally at C5-C6 in mild right at C6-C7). Incidental findings: Mild scarring at the lung apices. Atherosclerotic calcifications in the carotid siphons. Mild chronic inflammatory changes at the left mastoid tip. IMPRESSION: Head CT: 1. No acute traumatic intracranial abnormality, particularly no hemorrhage. 2. Persistent mild chronic microvascular ischemic changes. Face CT: 1. Large premandibular/symphyseal region soft tissue swelling and hematoma. 2. No acute facial fractures. 3. Chronic inflammatory opacification of the left maxillary sinus, unchanged compared to CT of 01/22/2018. 4. New partial opacification of the left sphenoid sinus. Cervical spine CT: 1. No acute cervical spine fractures or dislocations. 2. Unchanged advanced degenerative changes compared to CT of 01/22/2018. 3. Note is made that to post traumatic spinal cord, vascular or ligamentous injury cannot fully be assessed with CT. Signed by: Dr. Lorrie Bond M.D. on 09/09/2018 3:21 PM
[2018-09-09] MEDS: ACETAMINOPHEN 1000 MG/100 ML IV PRN ×2 (15:40→20:48)
[2018-09-09] MEDS ORDERED: MORPHINE SULFATE 2 MG/ML SYR 1ML IV PRN (15:45)
[2018-09-09] MEDS ORDERED: ONDANSETRON HCL INJ 2MG/ML 2ML 2 MG/ML VIAL IV PRN (15:45)
--- NOTE | 2018-09-09 15:46 | NUR ---
TYPE AND SCREEN DRAWN
--- OUTSIDE RECORDS SUMMARY | 2018-09-09 15:56 | XMS REPORT | Continuity of Care Document ---
Author Author [employer] [facility] (app) Address Unknown Phone Unavailable Care Team Providers Care Butt Presser Name Role Phone [facility] (app) Unavailable Unavailable Problems Problem Status Onset Date Classification Date Reported Comments Source INFED 500MG /// CPT: J1750, 03547 /// DX Active 06/30/2017 [facility] Other disorders of lung 04/26/2017 07/29/2017 [facility] [place] PROCRIT 40,000 UNITS WEEKLY X4, J0885, C Active 04/02/2016 [facility] PROCRIT 40,000 UNITS WEEKLY X4, J0885 Active 04/02/2016 [facility] INFED 500 MG J1750, CPT-95709, D46.9, D6 Active 02/28/2016 [facility] D46.9 Active 01/26/2015 [facility] 518.89 ABNORMALITY OF LUNG Active 10/12/2013 [facility] Cardiac dysrhythmia, unspecified Resolved Problem 08/09/2017 [facility] [place] Chronic anemia Active Problem 08/09/2017 [facility] [place] Fecal incontinence Resolved Problem 08/09/2017 [facility] [place] Myelodysplastic syndrome Resolved Problem 08/09/2017 [facility] [place] Rectocele Resolved Problem 08/09/2017 [facility] [place] Ventricular tachycardia Resolved Problem 08/09/2017 [facility] [place] cardiomyopathy Active Problem 10/16/2013 [facility] cholesterol Active Problem 10/16/2013 [facility] heartburn Active Problem 10/16/2013 [facility] hypertension Active Problem 10/16/2013 [facility] iron deficiency Active Problem 10/16/2013 [facility] viral Resolved Problem 10/16/2013 [facility] MYELODYSPLASTIC SYNDROME, UNSPECIFIED Active [facility] OTHER LUNG DISEASE NEC Active [facility] ANEMIA IN CHRONIC KIDNEY DISEASE Active [facility] IRON DEFICIENCY ANEMIA, UNSPECIFIED Active [facility] Medications Medication Details Route Status Patient Instructions Ordering Provider Order Date Source dexamethasone + Sodium Chloride 0.9% IV 47.5 mL 10 mg, 2.5 mL, Route: IVPB, Drug form: INJ, ONCALL, Start date: 07/22/17 9:30:00 CDT, Duration: 10 hr, Stop date: 07/22/17 19:29:00 CDTNotes: PROTECT FROM LIGHT Inactive 07/22/2017 [facility] iron dextran + Sodium Chloride 0.9% IV 490 mL 500 mg, 10 mL, Route: IVPB, Drug form: INJ, ONCALL, Start date: 07/22/17 9:30:00 CDT, Duration: 10 hr, Stop date: 07/22/17 19:29:00 CDTNotes: (Same as:DexFerrum) Non Formulary MEDICATION WASTE Product Size: 100 mg Product Wasted: ___ mg Inactive 07/22/2017 [facility] famotidine 20 mg, 1 tab, Route: PO, Drug form: TAB, ONCALL, Start date: 07/22/17 9:30:00 CDT, Duration: 10 hr, Stop date: 07/22/17 19:29:00 CDTNotes: (Same as: Pepcid) Inactive 07/22/2017 [facility] Benadryl 30 mg, 0.6 mL, Route: IVP, Drug form: INJ, ONCALL, Start date: 07/22/17 9:30:00 CDT, Duration: 10 hr, Stop date: 07/22/17 19:29:00 CDTNotes: (Same as: Benadryl) Inactive 07/22/2017 [facility] 24 HR mirabegron 25 MG Extended Release Tablet [Myrbetriq] 25 mg=1 tab, PO, PRN, # 30 tab, 5 Refill(s) Active 07/15/2017 [facility] sodium chloride 0.9% INJ 250 mL, PYXIS, ONCE, Start date: 07/15/17 9:30:00 CDT Inactive 07/15/2017 [facility] famotidine 20 mg, 1 tab, Route: PO, Drug form: TAB, ONCALL, Start date: 07/15/17 9:30:00 CDT, Duration: 10 hr, Stop date: 07/15/17 19:29:00 CDTNotes: (Same as: Pepcid) Inactive 07/15/2017 [facility] Benadryl 30 mg, 0.6 mL, Route: IVP, Drug form: INJ, ONCALL, Start date: 07/15/17 9:30:00 CDT, Duration: 10 hr, Stop date: 07/15/17 19:29:00 CDTNotes: (Same as: Benadryl) Inactive 07/15/2017 [facility] iron dextran + Sodium Chloride 0.9% IV 490 mL 500 mg, 10 mL, Route: IVPB, Drug form: INJ, ONCALL, Start date: 07/15/17 9:30:00 CDT, Duration: 10 hr, Stop date: 07/15/17 19:29:00 CDTNotes: (Same as:DexFerrum) Non Formulary MEDICATION WASTE Product Size: 100 mg Product Wasted: ___ mg Inactive 07/15/2017 [facility] dexamethasone + Sodium Chloride 0.9% IV 47.5 mL 10 mg, 2.5 mL, Route: IVPB, Drug form: INJ, ONCALL, Start date: 07/15/17 9:30:00 CDT, Duration: 10 hr, Stop date: 07/15/17 19:29:00 CDTNotes: PROTECT FROM LIGHT Inactive 07/15/2017 [facility] iron dextran + Sodium Chloride 0.9% IV 490 mL 500 mg, 10 mL, Route: IVPB, Drug form: INJ, ONCALL, Start date: 07/08/17 9:30:00 CDT, Duration: 10 hr, Stop date: 07/08/17 19:29:00 CDTNotes: (Same as:DexFerrum) Non Formulary MEDICATION WASTE Product Size: 100 mg Product Wasted: ___ mg Inactive 07/08/2017 [facility] dexamethasone + Sodium Chloride 0.9% IV 47.5 mL 10 mg, 2.5 mL, Route: IVPB, Drug form: INJ, ONCALL, Start date: 07/08/17 9:30:00 CDT, Duration: 10 hr, Stop date: 07/08/17 19:29:00 CDT Inactive 07/08/2017 [facility] Benadryl 30 mg, 0.6 mL, Route: IVP, Drug form: INJ, ONCALL, Start date: 07/08/17 9:30:00 CDT, Duration: 10 hr, Stop date: 07/08/17 19:29:00 CDTNotes: (Same as: Benadryl) Inactive 07/08/2017 [facility] famotidine 20 mg, 1 tab, Route: PO, Drug form: TAB, ONCALL, Start date: 07/08/17 9:30:00 CDT, Duration: 10 hr, Stop date: 07/08/17 19:29:00 CDTNotes: (Same as: Pepcid) Inactive 07/08/2017 [facility] Procrit 40,000 unit, 2 mL, Route: SUB-Q, Drug form: INJ, ONCALL, Start date: 04/16/16 9:30:00 HOSTAGE NEGOTIATOR, Duration: 12 hr, Stop date: 04/16/16 21:29:00 CSTNotes: (Same as: Procrit) Procrit 20,000 unit/ml VL. For non- dialysis use in adult only. WASTE: F/P - Red; E -Red To be used in dialysis for children; Contains different preservative. No Longer Active 04/16/2016 [facility] Procrit 40,000 unit, 1 mL, Route: SUB-Q, Drug form: INJ, ONCALL, Start date: 04/09/16 9:30:00 HOSTAGE NEGOTIATOR, Duration: 1 day, Stop date: 04/10/16 9:29:00 CSTNotes: (Same as: Procrit) epoetin madeline 13683 unit/1 ml VL. For non- dialysis use only. MEDICATION WASTE Product Size: 56567 unit Product Wasted: ___ unit Inactive 04/09/2016 [facility] Pepcid 20 mg, 2 mL, Route: IVP, Drug form: INJ, ONCALL, Start date: 04/09/16 8:00:00 HOSTAGE NEGOTIATOR, Duration: 12 hr, Stop date: 04/09/16 19:59:00 CSTNotes: (Same as: Pepcid) Can be dilute in 5-10cc NS IVP: Slow IV push over at least 2 minutes. Inactive 04/09/2016 [facility] Benadryl + sodium chloride 0.9% INJ 50 mL 25 mg, 0.5 mL, Route: IVPB, Drug form: INJ, ONCALL, Start date: 04/09/16 8:00:00 HOSTAGE NEGOTIATOR, Duration: 12 hr, Stop date: 04/09/16 19:59:00 CSTNotes: (Same as: Benadryl) Inactive 04/09/2016 [facility] dexamethasone + sodium chloride 0.9% INJ 50 mL 10 mg, 2.5 mL, Route: IVPB, Drug form: INJ, ONCALL, Start date: 04/09/16 8:00:00 HOSTAGE NEGOTIATOR, Duration: 12 hr, Stop date: 04/09/16 19:59:00 CSTNotes: PROTECT FROM LIGHT Inactive 04/09/2016 [facility] Sodium Chloride 0.9% IV IV, 30 ml/hr, ONCALL, Start date: 04/09/16 8:00:00 HOSTAGE NEGOTIATOR, Duration: 12, 250 ml Inactive 04/09/2016 [facility] Procrit 40,000 unit, 2 mL, Route: SUB-Q, Drug form: INJ, ONCALL, Start date: 04/09/16 8:00:00 HOSTAGE NEGOTIATOR, Duration: 12 hr, Stop date: 04/09/16 19:59:00 CSTNotes: (Same as: Procrit) Procrit 20,000 unit/ml VL. For non- dialysis use in adult only. WASTE: F/P - Red; E -Red To be used in dialysis for children; Contains different preservative. Inactive 04/09/2016 [facility] DexFerrum + sodium chloride 0.9% 500 ml INJ 490 mL 500 mg, 10 mL, Route: IVPB, Drug form: INJ, ONCALL, Start date: 04/02/16 9:00:00 HOSTAGE NEGOTIATOR, Duration: 8 hr, Stop date: 04/02/16 16:59:00 CSTNotes: (Same as:DexFerrum) Non-Formulary PROTECT FROM LIGHT Inactive 04/02/2016 [facility] Pepcid 20 mg, 2 mL, Route: IVP, Drug form: INJ, ONCALL, Start date: 04/02/16 9:00:00 HOSTAGE NEGOTIATOR, Duration: 8 hr, Stop date: 04/02/16 16:59:00 CSTNotes: (Same as: Pepcid) Can be dilute in 5-10cc NS IVP: Slow IV push over at least 2 minutes. Inactive 04/02/2016 [facility] dexamethasone + sodium chloride 0.9% INJ 50 mL 10 mg, 2.5 mL, Route: IVPB, Drug form: INJ, ONCALL, Start date: 04/02/16 9:00:00 HOSTAGE NEGOTIATOR, Duration: 8 hr, Stop date: 04/02/16 16:59:00 CSTNotes: PROTECT FROM LIGHT Inactive 04/02/2016 [facility] Benadryl 25 mg, 0.5 mL, Route: IVP, Drug form: INJ, ONCALL, Start date: 04/02/16 9:00:00 HOSTAGE NEGOTIATOR, Duration: 12 hr, Stop date: 04/02/16 20:59:00 CSTNotes: (Same as: Benadryl) Inactive 04/02/2016 [facility] Sodium Chloride 0.9% IV IV, 30 ml/hr, ONCALL, Start date: 04/02/16 9:00:00 HOSTAGE NEGOTIATOR, Duration: 8, 250 ml Inactive 04/02/2016 [facility] DexFerrum + sodium chloride 0.9% 500 ml INJ 490 mL 500 mg, 10 mL, Route: IVPB, Drug form: INJ, ONCALL, Start date: 03/26/16 9:30:00 HOSTAGE NEGOTIATOR, Duration: 8 hr, Stop date: 03/26/16 17:29:00 CSTNotes: (Same as:DexFerrum) Non-Formulary PROTECT FROM LIGHT Inactive 03/26/2016 [facility] Pepcid 20 mg, 2 mL, Route: IVP, Drug form: INJ, ONCALL, Start date: 03/26/16 9:30:00 HOSTAGE NEGOTIATOR, Duration: 8 hr, Stop date: 03/26/16 17:29:00 CSTNotes: (Same as: Pepcid) Can be dilute in 5-10cc NS IVP: Slow IV push over at least 2 minutes. Inactive 03/26/2016 [facility] Benadryl + sodium chloride 0.9% INJ 50 mL 25 mg, 0.5 mL, Route: IVPB, Drug form: INJ, ONCALL, Start date: 03/26/16 9:30:00 HOSTAGE NEGOTIATOR, Duration: 8 hr, Stop date: 03/26/16 17:29:00 CSTNotes: (Same as: Benadryl) Inactive 03/26/2016 [facility] dexamethasone + sodium chloride 0.9% INJ 50 mL 10 mg, 2.5 mL, Route: IVPB, Drug form: INJ, ONCALL, Start date: 03/26/16 9:30:00 HOSTAGE NEGOTIATOR, Duration: 8 hr, Stop date: 03/26/16 17:29:00 CSTNotes: PROTECT FROM LIGHT Inactive 03/26/2016 [facility] Sodium Chloride 0.9% IV IV, 30 ml/hr, ONCALL, Start date: 03/26/16 9:30:00 HOSTAGE NEGOTIATOR, Duration: 8, 250 ml Inactive 03/26/2016 [facility] Pepcid 20 mg, 2 mL, Route: IVP, Drug form: INJ, ONCALL, Start date: 03/19/16 9:30:00 HOSTAGE NEGOTIATOR, Duration: 8 hr, Stop date: 03/19/16 17:29:00 CSTNotes: (Same as: Pepcid) Can be dilute in 5-10cc NS IVP: Slow IV push over at least 2 minutes. Inactive 03/19/2016 [facility] Benadryl + sodium chloride 0.9% INJ 50 mL 25 mg, 0.5 mL, Route: IVPB, Drug form: INJ, ONCALL, Start date: 03/19/16 9:30:00 HOSTAGE NEGOTIATOR, Duration: 8 hr, Stop date: 03/19/16 17:29:00 CSTNotes: (Same as: Benadryl) Inactive 03/19/2016 [facility] dexamethasone + sodium chloride 0.9% INJ 50 mL 10 mg, 2.5 mL, Route: IVPB, Drug form: INJ, ONCALL, Start date: 03/19/16 9:30:00 HOSTAGE NEGOTIATOR, Duration: 8 hr, Stop date: 03/19/16 17:29:00 CSTNotes: PROTECT FROM LIGHT Inactive 03/19/2016 [facility] DexFerrum + sodium chloride 0.9% 500 ml INJ 490 mL 500 mg, 10 mL, Route: IVPB, Drug form: INJ, ONCALL, Start date: 03/19/16 9:30:00 HOSTAGE NEGOTIATOR, Duration: 8 hr, Stop date: 03/19/16 17:29:00 CSTNotes: (Same as:DexFerrum) Non-Formulary PROTECT FROM LIGHT Inactive 03/19/2016 [facility] Sodium Chloride 0.9% IV IV, 30 ml/hr, ONCALL, Start date: 03/18/16 16:00:00 HOSTAGE NEGOTIATOR, Duration: 8, 250 ml Inactive 03/18/2016 [facility] Pepcid 20 mg, 2 mL, Route: IVP, Drug form: INJ, ONCALL, Start date: 03/13/16 10:00:00 HOSTAGE NEGOTIATOR, Duration: 8 hr, Stop date: 03/13/16 17:59:00 CSTNotes: (Same as: Pepcid) Can be dilute in 5-10cc NS IVP: Slow IV push over at least 2 minutes. No Longer Active 03/13/2016 [facility] Sodium Chloride 0.9% IV IV, 30 ml/hr, PRN, PRN Line Flush, Start date: 03/12/16 10:00:00 HOSTAGE NEGOTIATOR, Duration: 8, 250 ml Inactive 2016 [facility] dexamethasone + sodium chloride 0.9% INJ 50 mL 10 mg, 2.5 mL, Route: IVPB, Drug form: INJ, ONCALL, Start date: 03/12/16 10:00:00 HOSTAGE NEGOTIATOR, Duration: 8 hr, Stop date: 03/12/16 17:59:00 CSTNotes: PROTECT FROM LIGHT Inactive 2016 [facility] DexFerrum + sodium chloride 0.9% 500 ml INJ 490 mL 500 mg, 10 mL, Route: IVPB, Drug form: INJ, ONCALL, Start date: 03/12/16 10:00:00 HOSTAGE NEGOTIATOR, Duration: 8 hr, Stop date: 03/12/16 17:59:00 CSTNotes: (Same as:DexFerrum) Non-Formulary PROTECT FROM LIGHT Inactive 2016 [facility] Procrit 40,000 unit, 2 mL, Route: SUB-Q, Drug form: INJ, ONCALL, Start date: 03/12/16 10:00:00 HOSTAGE NEGOTIATOR, Duration: 8 hr, Stop date: 03/12/16 17:59:00 CSTNotes: (Same as: Procrit) Procrit 20,000 unit/ml VL. For non- dialysis use in adult only. To be used in dialysis for children; Contains different preservative. Inactive 2016 [facility] Benadryl + sodium chloride 0.9% INJ 50 mL 25 mg, 0.5 mL, Route: IVPB, Drug form: INJ, ONCALL, Start date: 03/12/16 10:00:00 HOSTAGE NEGOTIATOR, Duration: 8 hr, Stop date: 03/12/16 17:59:00 CSTNotes: (Same as: Benadryl) Inactive 2016 [facility] Procrit 40,000 unit, 2 mL, Route: SUB-Q, Drug form: INJ, ONCALL, Start date: 02/20/15 9:00:00, Duration: 12 hr, Stop date: 02/20/15 20:59:00Notes: (Same as: Procrit) Procrit 20,000 unit/ml VL. For non-dialysis use in adult only. To be used in dialysis for children; Contains different preservative. Inactive 02/20/2015 [facility] Procrit 40,000 unit, 2 mL, Route: SUB-Q, Drug form: INJ, ONCALL, Start date: 02/13/15 11:00:00, Duration: 8 hr, Stop date: 02/13/15 18:59:00Notes: (Same as: Procrit) Procrit 20,000 unit/ml VL. For non-dialysis use in adult only. To be used in dialysis for children; Contains different preservative. Inactive 02/13/2015 [facility] Procrit 40,000 unit, 2 mL, Route: SUB-Q, Drug form: INJ, ONCALL, Start date: 02/06/15 9:00:00, Duration: 8 hr, Stop date: 02/06/15 16:59:00Notes: (Same as: Procrit) Procrit 20,000 unit/ml VL. For non-dialysis use in adult only. To be used in dialysis for children; Contains different preservative. Inactive 02/06/2015 [facility] epoetin madeline 40,000 unit, 2 mL, Route: SUB-Q, Drug form: INJ, ONCALL, Start date: 01/30/15 12:00:00, Duration: 8 hr, Stop date: 01/30/15 19:59:00Notes: (Same as: Procrit) Procrit 20,000 unit/ml VL. For non-dialysis use in adult only. To be used in dialysis for children; Contains different preservative. Inactive 01/30/2015 [facility] Allergies, Adverse Reactions, Alerts Substance Category Reaction Severity Reaction type Status Date Reported Comments Source codeine Assertion hallucination Drug allergy Active [facility] Tape Assertion breaks skin Drug allergy Active [facility] Immunizations No Data Provided for This Section Results No Data Provided for This Section Pathology Reports No Data Provided for This Section Diagnostic Reports Report Value Date Source Chest 2 views DX EXAM: XR CHEST 2 VIEWS DATE: 04/22/2017 11:14 AM HOSTAGE NEGOTIATOR INDICATION: - J98.4 Other disorders of lung [...] Comments Source Systolic (mm Hg) 120 07/22/2017 [facility] Diastolic (mm Hg) 74 07/22/2017 [facility] Heart Rate 74 07/22/2017 [facility] Respitory Rate 18 07/22/2017 [facility] Temperature Oral (F) 97.5 F 07/22/2017 [facility] Temperature Oral (F) 97.7 F 07/08/2017 [facility] Respitory Rate 18 07/08/2017 [facility] Systolic (mm Hg) 110 07/08/2017 [facility] Diastolic (mm Hg) 68 07/08/2017 [facility] Heart Rate 70 07/08/2017 [facility] BMI Calculated 20.35 07/07/2017 [facility] Weight 58.8 07/07/2017 [facility] Height 170 cm 07/07/2017 [facility] Systolic (mm Hg) 134 04/02/2016 [facility] Diastolic (mm Hg) 70 04/02/2016 [facility] Heart Rate 66 04/02/2016 [facility] Respitory Rate 16 04/02/2016 [facility] Temperature Oral (F) 98 F 04/02/2016 [facility] Respitory Rate 18 03/26/2016 [facility] Temperature Oral (F) 97.8 F 03/26/2016 [facility] Heart Rate 72 03/26/2016 [facility] Systolic (mm Hg) 106 03/26/2016 [facility] Diastolic (mm Hg) 65 03/26/2016 [facility] Systolic (mm Hg) 135 03/19/2016 [facility] Diastolic (mm Hg) 77 03/19/2016 [facility] Respitory Rate 18 03/19/2016 [facility] Temperature Oral (F) 98.1 F 03/19/2016 [facility] Heart Rate 65 03/19/2016 [facility] Weight 58.8 03/08/2016 [facility] BMI Calculated 20.32 03/08/2016 [facility] Height 170.1 cm 03/08/2016 [facility] Height 170.18 cm 01/30/2015 [facility] BMI Calculated 20.3 01/30/2015 [facility] Weight 58.8 01/30/2015 [facility] Encounters Location Location Details Encounter Type Encounter Number Reason For Visit Attending Provider ADM Date DC Date Status Source [facility] [id number] Kirt Hu 10/14/2013 10/15/2013 [facility] Recurring [id number] Ping Salazar 01/30/2015 03/01/2015 [facility] Recurring [id number] Ping Salazar 2016 04/11/2016 [facility] Recurring [id number] Ping Salazar 04/09/2016 05/09/2016 [facility] Outpatient [facility] - [place] [facility] [id number] Kirt Hu 04/22/2017 04/23/2017 [facility] [place] [facility] Recurring [id number] Ping Salazar 07/08/2017 08/07/2017 [facility] Procedures Procedure Code Date Perfomer Comments Source Rotator cuff repair [id number] 03/10/2009 [facility] Rotator cuff repair [id number] 03/10/2009 [facility] [place] Hysterectomy [id number] 03/10/1974 [facility] Hysterectomy [id number] 03/10/1974 [facility] [place] Repair of rectocele [id number] [facility] Infusion<sup>1</sup> [id number] bi-annual Infed infusions for chronic iron deficiency anemia [facility] [place] Repair of rectocele [id number] [facility] [place] Infusion<sup>1</sup> [id number] bi-annual Infed infusions for chronic iron deficiency anemia [facility] Assessment and Plan No Data Provided for This Section Plan of Care No Data Provided for This Section Social History Social History Date Source Social History TypeResponse Alcohol Current, Previous treatment: None. Smoking Status Never smoker; Exposure to Tobacco Smoke None; Cigarette Smoking Last 365 Days No; Reg Smoking Cessation Counseling No entered on: 07/22/17 02/12/2013 [facility] Social History TypeResponse Alcohol Current, Previous treatment: [...]
[2018-09-09 16:08] LABS: CREATINE KINASE MB 3.1 ng/mL (0-5.0)
--- NOTE | 2018-09-09 16:09 | NUR ---
PUREWICK PLACED ON PATIENT
[2018-09-09] MEDS ORDERED: MORPHINE SULFATE INJ 4 MG/ML INJ 1ML IV PRN (16:30)
[2018-09-09] MEDS: SODIUM CHLORIDE 0.9% 1000ML 1,000 ML IV SCH (16:31)
--- NOTE | 2018-09-09 16:45 | NUR ---
PATIENT GIVEN WARM BLANKETS, REPORT BEING CALLED
[2018-09-09 17:00] VITALS: BP 155/71
--- NOTE | 2018-09-09 17:11 | Diagnostic Imaging Report ---
Exam: Right femur portable 1 view History: Fall Comparison: <None.> Findings: Single cross table lateral projection of the right femur is severely limited due to portable technique and overlying structures. No displaced fracture or dislocation. Impression: No displaced fracture or dislocation. Signed by: Melissa Maldonado MD on 09/09/2018 5:07 PM
--- NOTE | 2018-09-09 17:18 | NUR ---
RCD PT FROM ER BY BED PT IS ALERT AND ORIENTED PT RESTING ON BED NO SIGNS OF ANY DISTRESS NOTED VITALS CHECKED ADMISSION ASSESSMENT DONE SHE FELL DOWN AT HOME HAVE FRACTURE ON RIGHT HIP AND HEMATOMA ,HAVE BRUISE ON FACE ,LOWER JAW ,RT HAND AND LEFT HAND SHE DENIED PAIN FAMILY AR BED SIDE BED LOW AND LOCKED INSTRUCTED PT AND FAMILY REGARDING HOSPITAL POLICY AND ROUTINE BED LOW AND LOCKED CALL LIGHT IN REACH
[2018-09-09 17:49] VITALS: BP 155/71
[2018-09-09 17:58] VITALS: BP 155/71
[2018-09-09] MEDS ORDERED: AMLODIPINE BESYL5 MG PO (18:23)
--- NOTE | 2018-09-09 18:42 | NUR ---
PT RESTING ON BED BED SIDE REPORT GIVEN TO ONCOMING NURSE
--- NOTE | 2018-09-09 19:30 | NUR ---
PATIENT IS CLEAR FOR SX PER DR LEVINE
--- NOTE | 2018-09-09 19:45 | NUR ---
PAGED DR RAWLS FOR CONSULT. AWAITING TO CALL BACK
--- NOTE | 2018-09-09 20:31 | History and Physical ---
HISTORY: The patient is a 78-year-old female, who was walking out of a store, the patient apparently caught the side of a box and fell forward. The patient hit her right hip on her way down. Also hit her chin and right wrist and right hand and forearm. The patient fell at [facility]. The patient came in, was found to have nondisplaced trochanteric fracture and admitted for the same and needs surgery. PAST MEDICAL HISTORY: History of cardiomyopathy in the past, history of hypertension, history of reflux esophagitis, history of hypothyroidism, history of hyperlipidemia. MEDICATIONS: She takes at home are amiodarone 200 mg daily and 100 every other day, amlodipine 5 mg daily, aspirin 81 mg daily, esomeprazole 40 daily, conjugated Premarin 0.625 daily, glucosamine chondroitin [id number], levothyroxine 75 mcg, nisoldipine 17 mg ER, omega-3 fatty acids and also simvastatin, occasional Tylenol Arthritis as needed. PAST SURGICAL HISTORY: History of hysterectomy, history of plastic surgery in the face for hematoma and also history of pacemaker placement by Dr. Dennis. SOCIAL HISTORY: No EtOH. No IV drug abuse. Never smoked. REVIEW OF SYSTEMS: Negative for chest pain. No loss of consciousness. No nausea, vomiting, or diarrhea. No constipation. No rectal bleeding. No hematochezia. No hematemesis. No blurry vision. PHYSICAL EXAMINATION: GENERAL: The patient is alert and oriented x3. HEENT: The patient has a chin that is filled with hematoma. The patient's teeth are intact, mandible is intact and tenderness present in the chin area in the lower mandible. CVS: S1, S2 normal. Regular rate and rhythm. ABDOMEN: Nontender, nondistended. EXTREMITIES: No clubbing, no cyanosis, no edema. Positive for tenderness in the right hip with hematoma on the right hip. NEUROLOGIC: Alert and oriented x3. Cranial nerves normal. Strength is normal except in the right hip, not examined and sensory examination is essentially normal. LABORATORY VALUES: White count 7.13, hemoglobin of 9.7, hematocrit of 29.4. Chemistries; sodium of 143, potassium 4.1, chloride of 109, BUN 20, creatinine of 1.23. IMAGING STUDIES: Brain CT shows degenerative changes in C1 to C7. No traumatic changes. No intracranial hemorrhages and persistent mild chronic microvascular changes. Face CT shows large premandibular region with swelling and hematoma. No acute facial fractures and chronic inflammatory opacification of the left maxillary sinus. Pelvic CT shows large soft tissue contusion hematoma adjacent to the proximal right femur with underlying nondisplaced fracture of the femoral neck, background diffuse osteopenia. Additional findings include atherosclerotic vascular disease, large bowel diverticulosis without diverticulitis. ASSESSMENT: Femur fracture, nondisplaced. The patient will undergo an open reduction and internal fixation by Dr. Puente. The patient is cleared for surgery. Restart all her medication except aspirin anticoagulation. Further recommendation per clinical course. The patient will have standard postoperative care and will continue with pain management. Fabian Troncoso MD [facility]/MODL /[id number]
[2018-09-09] MEDS: SIMVASTATIN 20 MG TAB PO SCH (20:48)
[2018-09-09 20:50] VITALS: BP 176/81
[2018-09-09 21:15] VITALS: BP 176/81
--- NOTE | 2018-09-09 21:25 | NUR ---
PAGED DR RAWLS AGAIN. AWAITING FOR MD TO CALL BACK. NOTIFIED MACHINE DYER
[2018-09-09] MEDS: PANTOPRAZOLE SOD 40 MG TABEC PO SCH (21:50)
[2018-09-09] MEDS: AMIODARONE HCL 200 MG TAB PO SCH (21:50)
--- NOTE | 2018-09-09 22:00 | NUR ---
OBTAINED CONSENT FORM FOR [facility]
--- NOTE | 2018-09-09 23:31 | NUR ---
ORTHOPEDIC CONSULTATION 78 year old community ambulating female without assistive device presents to the ED after having a mechanical fall in the ED. Reports of mainly right hip and facial pain. Denies numbness, paresthesias or loss of distal motor function. Has had some pain attempting to ambulate. PMedHx: Cardiomyopathy , hypertension, reflux esophagitis, hypothyroidism, hyperlipidemia. ALL: NKDA MEDS: See Med Note PSurgHx: Hysterectomy, plastic surgery for hematoma, Pacemaker SocHx: Denies EtOH. IV drug abuse. & Tobacci FamHx: Non-contributory VS: T 97.2, HR 64, RR 18, BP 176/81, O2 Sat 98% (Room air) NAD, laying in bed Alert, Awake & Oriented Facial ecchymosis Right Hip- Tenderness to palpation, no gross deformity Mild pain with log roll, heel strike and straight leg raise Motor: + EHL, FHL, TA, G/S Sensation grossly intact Pulses + DP, Post tib Compartments soft Negative calf tenderness CT - demonstrates non-displaced right femoral neck fracture 78 year old female with non-displaced right femoral neck fracture Plan for Closed Reduction, Percutaneous Pinning tomorrow am Analgesics NPO except meds Hold anticoagulation after midnight IVF while NPO Patient medically optimized for surgery Bedrest DO [facility]
[2018-09-10] VITALS (7 sets, daily range): BP systolic 109–158; BP diastolic 53–67
[2018-09-10] MEDS: LEVOTHYROXINE SODIUM 75 MCG TAB PO SCH (05:09)
[2018-09-10] MEDS: SODIUM CHLORIDE 0.9% 1000ML 1,000 ML IV SCH ×2 (05:09→10:50)
[2018-09-10 05:30] LABS: BASOPHILS % 0.7 % (0.0-1.0); EOSINOPHILS # (AUTO) 0.1 (0.0-0.4); EOSINOPHILS % 1.5 % (0.0-6.0); HEMOGLOBIN 8.4 g/dL (12.0-16.0); LYMPHOCYTES % 16.6 % (18.0-39.1); MEAN CORPUSCULAR HEMOGLOBIN 29.9 pg (28-32); MEAN CORPUSCULAR HGB CONC 32.3 g/dL (31-35); MEAN CORPUSCULAR VOLUME 92.5 fL (81-99); MONOCYTES # (AUTO) 0.5 (0.2-0.8); MONOCYTES % 8.5 % (4.4-11.3); NEUTROPHILS # (AUTO) 4.4 (2.1-6.9); NEUTROPHILS % 72.4 % (38.7-80.0); PLATELET COUNT 249 x10e3/uL (140-360); RED BLOOD COUNT 2.81 x10e6/uL (3.6-5.1); RED CELL DISTRIBUTION WIDTH 14.9 % (11.7-14.4)
[2018-09-10 05:55] LABS: ALBUMIN 2.7 g/dL (3.5-5.0); ALBUMIN/GLOBULIN RATIO 1.1 (0.8-2.0); ANION GAP 12.9 mmol/L (8-16); CREATININE, SERUM 0.9 mg/dL (0.57-1.11); POTASSIUM 3.9 mmol/L (3.5-5.1)
[2018-09-10] MEDS ORDERED: AMIODARONE HCL 200 MG TAB PO SCH (06:00)
[2018-09-10 06:17] LABS: CREATINE KINASE MB 2.6 ng/mL (0-5.0)
[2018-09-10] MEDS ORDERED: BACITRACIN 50,000 UNIT VIAL ONE (06:23)
--- NOTE | 2018-09-10 06:30 | NUR ---
PATIENT LEFT TO SX
--- NOTE | 2018-09-10 06:57 | Progress Note ---
DATE: 09/10/2018 SUBJECTIVE: This is a 78-year-old female with fracture of the femoral neck. The patient also has history of CKD and anemia. The patient is scheduled for surgery this morning. Echocardiogram was done yesterday stat. Echo showed EF of 45% to 50% with changes of bacterial endocarditis. The patient's general scrap worker has been reached. The patient was given amiodarone last night for surgery. The patient continues to be on all her medication including levothyroxine. No complaints from the patient yesterday. Pain is controlled. No chest pain. No shortness of breath. No nausea, vomiting, diarrhea. PHYSICAL EXAMINATION: VITAL SIGNS: Temperature 96.4, pulse of 60, respirations 17, blood pressure is 138/64, pulse oximeter of 97%. HEENT: Normocephalic, atraumatic. Pupils are reactive to light and accommodation. CVS: S1 and S2 normal. Regular rate and rhythm. ABDOMEN: Nontender, nondistended. EXTREMITIES: No clubbing, no cyanosis, no edema. LABORATORY VALUES: Today's hemoglobin was 8.4, hematocrit 26.0. Chemistry; sodium of 141, potassium 3.9, BUN 15, creatinine 0.90, alkaline phosphatase 38, total protein was normal. Coags were normal with INR of 0.87. ASSESSMENT: 1. Femur fracture, nondisplaced. The patient is scheduled for open reduction and internal fixation by Dr. Rogers today. 2. History of endocarditis with depressed LV functions, which is baseline for the patient. The patient is cleared for surgery. 3. History of arrhythmias. Continue with amiodarone. 4. History of fall with mandibular hematoma, needs an outpatient Plastic Surgical evaluation for evacuation of hematoma. 5. History of hypothyroidism, on thyroid medication. 6. Anemia. We will monitor her H and H postop. 7. History of chronic kidney disease. Continue to monitor her creatinine and continue resuscitating fluid as needed. Further recommendation per clinical course. We will continue to monitor the patient. MD AYESHA MiJ/MODL /[id number]
--- NOTE | 2018-09-10 07:00 | NUR ---
GOT THE REPORT PT WENT TO SURGERY
[2018-09-10] MEDS ORDERED: SUGAMMADEX SODIUM 200 MG/2 ML VIAL IV ONE (07:02)
[2018-09-10] MEDS ORDERED: PANTOPRAZOLE SOD 40 MG TABEC PO SCH (07:30)
[2018-09-10] MEDS ORDERED: HYDROMORPHONE 2MG/ML 2 MG/ML ML ONE ×2 (07:34→09:46)
[2018-09-10] MEDS ORDERED: BUPIVACAINE HCL 0.5% INJ 30 ML VIAL INJ ONE (08:50)
--- NOTE | 2018-09-10 08:58 | NUR ---
ORTHOPEDICS OPERATIVE NOTE PREOPERATIVE DIAGNOSES: Right Hip Non-displaced Femoral Neck Fracture POSTOPERATIVE DIAGNOSES: Right Hip Non-displaced Femoral Neck Fracture OPERATION PERFORMED: Closed Reduction, Percutaneous Pinning Right Hip SURGEON: Pastora Aly DO ANESTHESIA: General. EBL: 25cc COMPLICATIONS: None IMPLANTS: [place] Asnis III Partially Threaded Cannulated Screws 2 6.5 x 90 mm & 1 8.0 x 95 mm DESCRIPTION OF OPERATION: The patient was taken to the operating room and placed under general anesthesia. All bony prominences well padded and secured. SCD was placed on the left lower leg. Preoperative Ancef antibiotics were given. The patients right lower extremities were sterilely prepped and draped in the usual fashion. A time-out was performed to identify the correct extremity. The right hip was visualized under flouroscopy and the hip was adducted to improve the position of the fracture and to allow for pinning. Next and incision was made lateral to the greater trochanter. A guide pin was introduced through the inferior portion neck and head under flouroscopic guidance and deemed to be in adequate position. Two other guide pins were inserted under similar fashion along the superoanterior and superoposterior portion of the neck and head. The intraosseous length of the pin was measured and three Asnis III Partially Threaded Cannulated Screws were introduced into the neck and head. The anterosuperior screw was 6.5 x 90 mm TL 25 mm, posterosuperior screw was 6.5 x 90 mm TL 40 mm and the inferior screw was 8.0 x 95 mm TL 25 mm. The guide pins were removed and final imaging was taken and interpreted to be in adequate position. The incisions were thoroughly irrigated, and the fascia was closed with 0 vicryl, and the subcutaneous tissue was closed with 2-0 vicryl. 3-0 Monocryl were placed to close the skin and the skin was then cleaned. An Aquacel dressing was placed. The patient was transferred to ICU due to her perioperative risk under stable condition.
[2018-09-10] MEDS ORDERED: ESTROGENS CONJUGATED 0.625 MG TAB PO SCH (09:00)
[2018-09-10] MEDS ORDERED: HYDROCODONE/APAP 7.5MG-325MG 1 EA TAB PO PRN (09:00)
[2018-09-10] MEDS ORDERED: MEPERIDINE HCL INJ 25 MG/ML VIAL ONE (09:14)
[2018-09-10] MEDS ORDERED: FENTANYL CITRATE/PF 100MCG/2 ML INJ ONE ×2 (09:19→16:32)
[2018-09-10] MEDS ORDERED: MORPHINE SULFATE INJ 4 MG/ML INJ 1ML ONE (09:32)
[2018-09-10] MEDS ORDERED: EPHEDRINE SULFATE INJ 50 MG/ML VIAL ONE (09:32)
--- NOTE | 2018-09-10 09:53 | NUR ---
received report from albert in med surg 2
--- NOTE | 2018-09-10 09:53 | NUR ---
REPORT GIVEN TO DELISA NUNO
--- NOTE | 2018-09-10 10:08 | NUR ---
RECEIVED REPORT FROM JUNE IN RECOVERY AWAITING FOR PT TO ARRIVE TO FLOOR
--- NOTE | 2018-09-10 10:20 | NUR ---
RECEIVED PT TO FLOOR AA0X3. FAMILY IS AT BEDSIDE. PT STATES PAIN AT THIS TIME IS TOLERABLE. 06/17 TO RIGHT HIP TIGH AREA PT HAD A CLOSED REDUCTION PERC. PINNING OF RIGHT HIP. DRESSING TO LATERAL TIGH IS DRY AND INTACT PT IS ON TELE RUNNING SR WITH BBB IV TO THE LEFT AC 20 WITH NS AT 75CC.HR SITE IS CLEAN AND DRY PT HAS MULTIPLE BRUISING AND SKIN TEARS COVERED WITH COBAND JAW AREA IS PURPLE AND BRUISED DUE TO FALL AT HOME WILL CONTINUE TO MONITOR PT CLOSELY, INSTRUCTED PT TO NOT GET UP WITHOUT ASSISTANCE CALL LIGHT IS AT BEDSIDE SIDE RAILSX2, BED WHEELS LOCKED
[2018-09-10] MEDS: AMIODARONE HCL 200 MG TAB PO SCH (10:50)
[2018-09-10] MEDS: ASPIRIN 325 MG TAB PO SCH ×2 (10:50→16:50)
[2018-09-10] MEDS: AMLODIPINE BESYLATE 5 MG TAB PO SCH (10:50)
[2018-09-10] MEDS: PANTOPRAZOLE SOD 40 MG TABEC PO SCH (10:50)
[2018-09-10] MEDS: ESTROGENS CONJUGATED 0.3 MG TAB PO SCH (12:11)
[2018-09-10 14:32] LABS: CREATINE KINASE MB 3.3 ng/mL (0-5.0)
[2018-09-10] MEDS: CEFAZOLIN SOD 1 GM/NS 50ML 50 ML IV SCH ×2 (15:01→22:16)
[2018-09-10] MEDS ORDERED: LIDOCAINE HCL 2% JELLY 5 ML TUBE ONE (17:21)
[2018-09-10] MEDS ORDERED: ROCURONIUM BROMIDE 10 MG/ML 5ML VIAL ONE (17:21)
[2018-09-10] MEDS ORDERED: DESFLURANE 240 ML BTL INH ONE (17:21)
[2018-09-10] MEDS ORDERED: ACETAMINOPHEN 1000 MG/100 ML IV ONE (17:21)
[2018-09-10] MEDS ORDERED: ONDANSETRON HCL INJ 2MG/ML 2ML 2 MG/ML VIAL ONE (17:21)
[2018-09-10] MEDS ORDERED: DEXAMETHASONE SOD PHOS INJ 4 MG/ML VIAL ONE (17:21)
[2018-09-10] MEDS ORDERED: PROPOFOL IV EMULSION 10 MG/ML 20 ML VIAL ONE (17:21)
[2018-09-10] MEDS ORDERED: CEFAZOLIN SOD 1 GM VIAL ONE (17:21)
[2018-09-10] MEDS ORDERED: EPHEDRINE SULFATE INJ 50 MG/10 ML SYR ONE (17:21)
[2018-09-10] MEDS ORDERED: LIDOCAINE HCL 2% LOCAL INJ 5 ML SDV VIAL INJ ONE (17:21)
[2018-09-10] MEDS ORDERED: TEMAZEPAM 15 MG CAP PO PRN (19:15)
[2018-09-10] MEDS: SIMVASTATIN 20 MG TAB PO SCH (21:32)
[2018-09-11] VITALS (9 sets, daily range): BP systolic 107–147; BP diastolic 52–63
[2018-09-11] MEDS: CEFAZOLIN SOD 1 GM/NS 50ML 50 ML IV SCH (05:46)
[2018-09-11] MEDS: LEVOTHYROXINE SODIUM 75 MCG TAB PO SCH (05:46)
[2018-09-11 06:08] LABS: BASOPHILS % 0.1 % (0.0-1.0); HEMOGLOBIN 7.2 g/dL (12.0-16.0); LYMPHOCYTES # (AUTO) 0.7 (1.0-3.2); LYMPHOCYTES % 8.8 % (18.0-39.1); MEAN CORPUSCULAR HEMOGLOBIN 30.1 pg (28-32); MEAN CORPUSCULAR VOLUME 91.2 fL (81-99); MONOCYTES # (AUTO) 0.6 (0.2-0.8); MONOCYTES % 7.9 % (4.4-11.3); NEUTROPHILS # (AUTO) 6.7 (2.1-6.9); NEUTROPHILS % 82.7 % (38.7-80.0); PLATELET COUNT 246 x10e3/uL (140-360); RED BLOOD COUNT 2.39 x10e6/uL (3.6-5.1); RED CELL DISTRIBUTION WIDTH 14.8 % (11.7-14.4)
[2018-09-11 06:13] LABS: ANION GAP 12.6 mmol/L (8-16); CALCIUM 8.7 mg/dL (8.4-10.2); CREATININE, SERUM 1.14 mg/dL (0.57-1.11); POTASSIUM 4.6 mmol/L (3.5-5.1)
[2018-09-11 06:19] LABS: HEMATOCRIT 21.8 % (34.2-44.1)
[2018-09-11] MEDS: AMLODIPINE BESYLATE 5 MG TAB PO SCH (09:03)
[2018-09-11] MEDS: ASPIRIN 325 MG TAB PO SCH ×2 (09:03→16:47)
[2018-09-11] MEDS: AMIODARONE HCL 200 MG TAB PO SCH (09:03)
[2018-09-11] MEDS: PANTOPRAZOLE SOD 40 MG TABEC PO SCH (09:04)
[2018-09-11] MEDS: ESTROGENS CONJUGATED 0.3 MG TAB PO SCH (09:04)
--- NOTE | 2018-09-11 10:12 | Progress Note ---
DATE: 09/11/2018 SUBJECTIVE: This patient is a 78-year-old female, who comes in with right femur fracture, status post open reduction and internal fixation by Dr. Puente. She has to restart of medications has been done. The patient has no bowel movement yet. No chest pain. No shortness of breath. Cannot ambulate on that right hip without assistance. Pain controlled and only on movement. MEDICATIONS: Amiodarone, amlodipine, aspirin, estrogen, hydrocodone, levothyroxine, ondansetron, pantoprazole, simvastatin, temazepam for sleep has been given. The patient had a good night. No chest pains. No shortness of breath. OBJECTIVE: VITAL SIGNS: Temperature is 97.8, pulse of 61, respirations 16, blood pressure 125/60, and pulse oximetry of 95% on room air. HEENT: Normocephalic, atraumatic. Pupils are reactive to light and accommodation. CVS: S1, S2 normal. Regular rate and rhythm. ABDOMEN: Nontender, nondistended. EXTREMITIES: No clubbing, no cyanosis, no edema. Right hip with surgical wound, dry and clean. No seepage or drainage noted. SKIN AND INTEGUMENTARY SYSTEM: Multiple ecchymoses and multiple lacerations right arm and the left arm. ASSESSMENT: The patient has a submandibular hematoma on mandible anteriorly, needs to be drained surgically. PLAN: The patient will need physical therapy and will consult Dr. Cha for possible inpatient rehab secondary to her medical condition, which includes cardiomyopathy and history of endocarditis. Further recommendation per clinical course. The patient will be kept on amiodarone and also on her blood pressure medication. We will continue to monitor the patient. Possible discharge depending on inpatient rehab course. MD CHRISTO Mi/QASIML /[id number]
--- NOTE | 2018-09-11 12:41 | NUR ---
CM SPOKE TO PATIENT AT BEDSIDE REGARDING ROLLING WALKER FOR DISCHARGE. DURAMEDIC FORM SIGNED BY PATIENT AND WALKER SET UP AND PLACED AT BEDSIDE. PATIENT CLEARED BY CM AND READY FOR DC. DURAMEDIC FORM STAPLED TO FACESHEET AND ORDER. FORM PENDING SIGNATURE BY MD. FORM PLACED ON CHART.
--- NOTE | 2018-09-11 13:16 | NUR ---
EDUCATED ABOUT IMM, SIGNED, FILED IN CHART, WITH COPY LEFT WITH FAMILY AT BEDSIDE.
--- NOTE | 2018-09-11 13:26 | NUR ---
Wound Consult for multiple skin tears after a fall. This delightful lady has a routine regime she utilizes for frequent skin tears as discussed with her primary care physician. Will recommend continuation of this regiment which includes Xeroform gauze and light coban wrap-no tape change q o day. She currently has a large bruise over her chin, some on R hip, and over her arms. She has a skin tear to the R elbow, R thumb, R wrist, and L hand. no purulent drainage or s/s of infection.
--- NOTE | 2018-09-11 19:03 | NUR ---
BEDSIDE SHIFT REPORT PERFORMED, RECEIVED PT LAYING FOWLERS IN BED, AAOX3, RR EVEN AND NON-LABORED, ON ROOM AIR. NO S/SX OF DISTRESS NOTED. LEFT PT LAYING FOWLERS IN BED, BED IN LOW LOCKED POSITION SIDE RAILS UPX2, CALL LIGHT AND PHONE WITHIN REACH.
--- NOTE | 2018-09-11 19:31 | NUR ---
ORTHOPEDIC PROGRESS NOTE Patient seen & examined, pain controlled. No numbness, paresthesias or loss of distal motor function. Ambulating through the day. T 97.0, HR 72, RR 18, BP 107/52, O2 96% Right Hip dressing, clean, dry and intact Motor: EHL, FHL, TA, G/S Sensation grossly intact Pulses + DP, Post tib Compartments soft Negative calf tenderness H/H 7.2/21.8 78 yo F s/p right hip CRPP # POD #1 Analgesics DVT Prophylaxis PT - WBAT Follow up am labs Ortho stable for discharge DO [facility]
[2018-09-11] MEDS: SIMVASTATIN 20 MG TAB PO SCH (20:42)
[2018-09-12] VITALS (7 sets, daily range): BP systolic 120–130; BP diastolic 57–62
[2018-09-12 04:40] LABS: BASOPHILS % 0.6 % (0.0-1.0); EOSINOPHILS # (AUTO) 0.2 (0.0-0.4); EOSINOPHILS % 2.5 % (0.0-6.0); LYMPHOCYTES # (AUTO) 0.9 (1.0-3.2); LYMPHOCYTES % 13.3 % (18.0-39.1); MEAN CORPUSCULAR HEMOGLOBIN 29.9 pg (28-32); MEAN CORPUSCULAR VOLUME 93.6 fL (81-99); MONOCYTES # (AUTO) 0.6 (0.2-0.8); MONOCYTES % 8.2 % (4.4-11.3); NEUTROPHILS # (AUTO) 5.3 (2.1-6.9); NEUTROPHILS % 74.7 % (38.7-80.0); PLATELET COUNT 204 x10e3/uL (140-360); RED BLOOD COUNT 2.34 x10e6/uL (3.6-5.1); RED CELL DISTRIBUTION WIDTH 15.5 % (11.7-14.4)
[2018-09-12 04:42] LABS: HEMATOCRIT 21.9 % (34.2-44.1)
[2018-09-12 04:56] LABS: ANION GAP 12.2 mmol/L (8-16); CALCIUM 9.1 mg/dL (8.4-10.2); CREATININE, SERUM 1.08 mg/dL (0.57-1.11); POTASSIUM 4.2 mmol/L (3.5-5.1)
[2018-09-12] MEDS: LEVOTHYROXINE SODIUM 75 MCG TAB PO SCH (05:14)
[2018-09-12 06:47] LABS: HEMOGLOBIN 7.1 g/dL (12.0-16.0)
[2018-09-12] MEDS: AMLODIPINE BESYLATE 5 MG TAB PO SCH (08:45)
[2018-09-12] MEDS: AMIODARONE HCL 200 MG TAB PO SCH (08:45)
[2018-09-12] MEDS: ESTROGENS CONJUGATED 0.3 MG TAB PO SCH (08:45)
[2018-09-12] MEDS: PANTOPRAZOLE SOD 40 MG TABEC PO SCH (08:45)
[2018-09-12] MEDS: ASPIRIN 325 MG TAB PO SCH ×2 (08:47→16:32)
[2018-09-12] MEDS: HYDROCODONE/APAP 5MG-325MG TAB PO PRN (09:43)
--- NOTE | 2018-09-12 10:08 | NUR ---
ORTHOPEDIC PROGRESS NOTE Patient seen & examined resting comfortably at bedside. Pain controlled with analgesics. No acute events overnight. Has not ambulated today VS 98.5 74 16 120/57 95% RA Right hip - dressing clean dry and intact Motor: EHL, FHL, TA, G/S intact Sensation grossly intact Pulses + DP, post tib Compartments soft negative calf tenderness H/H 7.0/21.9 78 yo female s/p Right hip CRPP POD #2 Analgesics DVT Prophylaxis WBAT F/U labs May change to new Aquacel dressing prior to discharge No acute orthopedic intervention required at this time May follow up as an outpatient in 2 weeks. DO [facility]
--- NOTE | 2018-09-12 19:01 | NUR ---
BEDSIDE SHIFT REPORT PERFORMED, RECEIVED PT SITTING ON SIDE OF BED DANGLING FEET. PT IS AAOX3, RR EVEN AND NON-LABORED, ON ROOM AIR. NO S/SX OF DISTRESS NOTED. PT FAMILY ARRIVED. LEFT PT SITTING ON SIDE OF BED, BED IN LOW LOCKED POSITION, SIDE RAILS UPX2, CALL LIGHT AND PHONE WITHIN REACH.
[2018-09-12] MEDS: SIMVASTATIN 20 MG TAB PO SCH (21:15)
--- NOTE | 2018-09-12 21:23 | NUR ---
IV TO (L) AC NOTED TO BE OCCLUDED AND LEAKING WHEN FLUSHED. IV REMOVED, CATHETER TIP INTACT, PRESSURE AND DRESSING APPLIED WITH COBAN. PT REFUSING NEW IV ST AT THIS TIME. NOTIFIED MD GUERRA OF PT REFUSAL OF NEW IV. PER OK TO LEAVE IV OUT.
[2018-09-13] VITALS (8 sets, daily range): BP systolic 114–145; BP diastolic 56–65
[2018-09-13] MEDS: LEVOTHYROXINE SODIUM 75 MCG TAB PO SCH (06:03)
[2018-09-13] MEDS: ESTROGENS CONJUGATED 0.3 MG TAB PO SCH (09:00)
[2018-09-13] MEDS: AMIODARONE HCL 200 MG TAB PO SCH (09:00)
[2018-09-13] MEDS: PANTOPRAZOLE SOD 40 MG TABEC PO SCH (09:00)
[2018-09-13] MEDS: AMLODIPINE BESYLATE 5 MG TAB PO SCH (09:00)
[2018-09-13] MEDS: ASPIRIN 325 MG TAB PO SCH ×2 (09:00→16:49)
[2018-09-13] MEDS: HYDROCODONE/APAP 5MG-325MG TAB PO PRN (10:41)
--- NOTE | 2018-09-13 10:42 | NUR ---
R HIP DRESSING REMOVED, SUTURES INTACT, NEW AQUA SEAL DRESSING APPLIED , WITH STANDBY ASSIST, PT OOB TO BEDSIDE CHAIR, CALL LIGHT WITHIN REACH
[2018-09-13] MEDS ORDERED: ONDANSETRON HCL 4 MG ORAL DISINTEGRATING TAB PO PRN (11:15)
--- NOTE | 2018-09-13 11:21 | NUR ---
AMBULATING IN HALLWAY WITH PHYSICAL THERAPIST
--- NOTE | 2018-09-13 18:52 | NUR ---
BEDSIDE SHIFT REPORT PERFORMED, RECEIVED PT LAYING FOWLERS IN BED, AAOX3, RR EVEN AND NON-LABORED, ON ROOM AIR. NO S/SX OF DISTRESS NOTED. DRESSING TO (R) HIP NOTED TO BE CDI. LEFT PT LAYING FOWLERS IN BED, BED IN LOW LOCKED POSITION SIDE RAILS UPX2, CALL LIGHT AND PHONE WITHIN REACH.
[2018-09-13] MEDS: SIMVASTATIN 20 MG TAB PO SCH (21:47)
[2018-09-14] VITALS: BP 124/60
[2018-09-14 04:00] VITALS: BP 115/55
[2018-09-14] MEDS: LEVOTHYROXINE SODIUM 75 MCG TAB PO SCH (06:21)
--- NOTE | 2018-09-14 06:40 | NUR ---
DRESSING TO (L) HAND, (R) THUMB, AND (R) WRIST CHANGED AT THIS TIME. APPLIED XEROFORM TO EACH WOUND AND SECURED WITH COBAN.
[2018-09-14 06:48] LABS: BASOPHILS % 0.6 % (0.0-1.0); EOSINOPHILS # (AUTO) 0.3 (0.0-0.4); EOSINOPHILS % 5.1 % (0.0-6.0); HEMOGLOBIN 7.3 g/dL (12.0-16.0); LYMPHOCYTES % 15.6 % (18.0-39.1); MEAN CORPUSCULAR HEMOGLOBIN 30.3 pg (28-32); MEAN CORPUSCULAR HGB CONC 32.9 g/dL (31-35); MEAN CORPUSCULAR VOLUME 92.1 fL (81-99); MONOCYTES # (AUTO) 0.6 (0.2-0.8); NEUTROPHILS # (AUTO) 4.5 (2.1-6.9); NEUTROPHILS % 69.2 % (38.7-80.0); PLATELET COUNT 289 x10e3/uL (140-360); RED BLOOD COUNT 2.41 x10e6/uL (3.6-5.1); RED CELL DISTRIBUTION WIDTH 15.2 % (11.7-14.4)
[2018-09-14 06:57] LABS: HEMATOCRIT 22.2 % (34.2-44.1)
[2018-09-14 07:11] LABS: ANION GAP 12.1 mmol/L (8-16); BLOOD UREA NITROGEN 13 mg/dL (7-26); BUN/CREATININE RATIO 15 (6-25); CALCIUM 9.1 mg/dL (8.4-10.2); CARBON DIOXIDE 25 mmol/L (22-29); CHLORIDE 108 mmol/L (98-107); CREATININE, SERUM 0.84 mg/dL (0.57-1.11); EST GLOMERULAR FILTRATION RATE > 60 ML/MIN (60-); GLUCOSE 88 mg/dL (74-118); POTASSIUM 4.1 mmol/L (3.5-5.1); SODIUM 141 mmol/L (136-145)
--- NOTE | 2018-09-14 07:19 | Progress Note ---
DATE: 09/14/2018 SUBJECTIVE: The patient came in with a traumatic femur fracture. The patient is currently asymptomatic, able to ambulate and is scheduled to go home today. Hemoglobin has not been checked for two days. We will go ahead and check that today. No complaints. Other than that, the patient is doing well. The patient does get regular iron infusion from Dr. Salazar once a year. MEDICATIONS: Include Pacerone, amlodipine 5 mg, aspirin 81 mg, esomeprazole 40 mg, estrogen 0.625, glucosamine, and nisoldipine. The patient also gets simvastatin 20 mg at nighttime. OBJECTIVE: VITAL SIGNS: Temperature is 97.2, afebrile, pulse 19, respirations of 18, blood pressure is 115/55, pulse oximetry of 97% oxygen on room air. HEENT: Normocephalic. The patient has a traumatic mandibular area with ecchymosis, and signs of trauma. CVS: S1, S2. Regular. ABDOMEN: Nontender and nondistended. EXTREMITIES: No clubbing, no cyanosis, and no edema. SKIN: Multiple lacerations on the elbow and on the right arm and forearm with a healing surgical wound on the right thigh. LABORATORY VALUES: The patient's white count is 7.09, hemoglobin is 7.6, and hematocrit of 21.9. ASSESSMENT: 1. The patient with right femur fracture status post open reduction and internal fixation. 2. Mandibular hematoma. 3. Hypertension. 4. History of endocarditis. PLAN: Plan is to continue with monitoring the patient. We will go ahead and discharge the patient if all the have been set up. The patient also will need an H and H today and if H and H are above 7, the patient can be discharged home and will be followed up with Dr. Salazar, the life insurance agent and Dr. Rivera, her primary care physician. Further recommendation per clinical course. Rehab can be done at home. MD CHRISTO Mi/ALE /[id number]
[2018-09-14 08:03] VITALS: BP 132/60
--- NOTE | 2018-09-14 08:32 | NUR ---
DISCHARGE DISPOSITION PATIENT RETURNING HOME WITH ROLLING WALKER FROM [facility].
--- NOTE | 2018-09-14 08:59 | NUR ---
CM SPOKE TO PATIENT AT BEDSIDE REGARDING HOME HEALTH ORDER. PATIENT AWARE AND GIVEN CHOICES OF COMPANIES. PATIENT SIGNED CHOICE FOR [facility]. CLINICAL FAXED TO [facility]. PATIENT ACCEPTED AND WILL BEGIN SERVICES 09/15. [facility] (P) [phone] (F)[phone] LIAISON: LETY JAIMES
[2018-09-14] MEDS: AMIODARONE HCL 200 MG TAB PO SCH (09:00)
--- NOTE | 2018-09-14 09:01 | NUR ---
UPDATED DISCHARGE DISPOSITION PATIENT DISCHARGING HOME WITH HOME HEALTH AND DME (MARZENA RUBIO): [facility] (P) [phone] (F)[phone] LIAISON: LETY JAIMES DME: MARZENA RUBIO [facility]
[2018-09-14 09:25] VITALS: BP 132/60
[2018-09-14] MEDS: PANTOPRAZOLE SOD 40 MG TABEC PO SCH (09:25)
[2018-09-14] MEDS: AMLODIPINE BESYLATE 5 MG TAB PO SCH (09:25)
[2018-09-14] MEDS: ESTROGENS CONJUGATED 0.3 MG TAB PO SCH (09:25)
[2018-09-14] MEDS: ASPIRIN 325 MG TAB PO SCH (09:25)
[2018-09-14] MEDS: HYDROCODONE/APAP 5MG-325MG TAB PO PRN (09:26)
--- NOTE | 2018-09-14 09:31 | NUR ---
SPOKE WITH MD BANSAL STATES PT CAN GO HOME AND CONTINUE ASPIRIN FOR A MONTH FOLLOW UP VISIT IS IN 2 WEEKS SPOKE WITH MD LEVINE ABOUT NEW HBG LEVEL. OK DISCHARGE TO HOME WELL
[2018-09-14] MEDS ORDERED: ASPIRIN325 MG PO (09:35)
--- NOTE | 2018-09-14 09:46 | NUR ---
UPON GIVING DC INFORMATION TO PT PT STATES SHE NEEDS MD ROBIN TO SEE HER WILL ADMITTED TO LOOK AT HER CHIN NO CX WITH MD ON CHART. CALLED MD LEVINE REGARDING PT CONCERN ORDERS TO CANCEL DC AND CX MD GIVEN
[2018-09-14 12:14] VITALS: BP 128/60
--- NOTE | 2018-09-14 12:40 | NUR ---
MD ROBIN ROUNDED AND CLEARED PT . SCHEDULED OUTPATIENT VISIT TO OFFICE NOTIFIED MD LEVINE PT IS NOW CLEARED FOR DC DC INSTRUCTIONS GIVEN, PT VERBALIZED UNDERSTANDING NO IV ACCESS PT IS NOW OFF UNIT TO HOME Addendum: 09/14/18 at 1241 by Sofia Siu RN PT IS WAITING FOR RIDE HOME NOT ON WAY HOME *
--- NOTE | 2018-09-14 12:57 | NUR ---
PT IS NOW OFF UNIT TO HOME
--- NOTE | 2018-09-14 13:39 | NUR ---
IMM EXPLAINED TO PT , SIGNED BY PT AND PLACED IN CHART COPY TO PT IN CARE TRANSITIONS FOLDER
--- NOTE | 2018-11-29 02:32 | Discharge Summary ---
HOSPITAL COURSE: The patient came into the hospital with diagnosis of right femoral neck fracture, nondisplaced. Dr. Puente household assistant consulted. A right neck closed reduction with percutaneous pinning was done. The patient was kept n.p.o. Anticoagulants were held. The patient's IV fluid started. The patient had an optimal surgery. No complaints were noted. Anticoagulation was started. DVT prophylaxis was started. PT weightbearing as tolerated was started. The patient was feeling better and the patient was discharged with no problems. FINAL DIAGNOSIS: A 78-year-old female, status post right hip closed reduction with pinning. The patient was here post surgery for 2 days. The patient is discharged in stable condition. Further information to look in the chart. For medicines on discharge, look in the medical reconciliation sheet and for complete operative notes, look into the operative notes of Dr. Puente. MD CHRISTO Mi/MODL /[id number]
== END 2018-09-14 12:57 | disposition home or self-care (01) | DRG 480 ==
LOC: ER 13:14 → ERHOLD 15:41 → MED/SURG2 16:59 → MED/SURG 09-10 10:21
PROVIDERS: ADMIT Family Medicine; ATTEND Family Medicine
PROC: 0QS834Z Reposition Right Femoral Shaft with Internal Fixation Device, Percutaneous Approach (ICD-10-PCS; principal; 2018-09-10 07:00)
DX: S72.091A Other fracture of head and neck of right femur, initial encounter for closed fracture (principal); I33.0 Acute and subacute infective endocarditis; I42.9 Cardiomyopathy, unspecified; W18.39XA Other fall on same level, initial encounter; Y93.89 Activity, other specified; Y92.512 Supermarket, store or market as the place of occurrence of the external cause; M85.821 Other specified disorders of bone density and structure, right upper arm; I70.90 Unspecified atherosclerosis; K57.30 Diverticulosis of large intestine without perforation or abscess without bleeding; S00.83XA Contusion of other part of head, initial encounter; E03.9 Hypothyroidism, unspecified; E78.5 Hyperlipidemia, unspecified; K21.0 Gastro-esophageal reflux disease with esophagitis; I10 Essential (primary) hypertension; S00.01XA Abrasion of scalp, initial encounter; D50.0 Iron deficiency anemia secondary to blood loss (chronic); F41.9 Anxiety disorder, unspecified
CPT/HCPCS: 36415; 70450; 70486; 72125; 72192; 80048; 80053; 82550; 82553; 84484; 85014; 85018; 85025; 85610; 85730; 86850; 86900; 93005; 93306; 97139; 99284; C1713; J0690; J1100; J2001; J2175; J2270; J2405; J3010; J7030

== ENCOUNTER → 2019-09-08 | Emergency (ER) | payer MEDICARE, OTHER ==
[~2019-09-08] MED LIST changes: +AMLODIPINE BESYL5 MG PO; +ASPIRIN325 MG PO
--- NOTE | 2019-09-08 17:16 | NUR ---
GOT DR'S APPT AND WANTS TO SEE HIM TOMORROW INSTEAD OF WAITING
== END | disposition left against medical advice (07) ==
LOC: ER 17:29
DX: R10.9 Unspecified abdominal pain (principal)

== ENCOUNTER 2019-09-09 09:56 | Inpatient (IN) | payer MEDICARE, OTHER ==
[~2019-09-09] VITALS: Ht 170.2 cm; Wt 59.0 kg
[2019-09-09 10:50] LABS: BASOPHILS % 0.3 % (0.0-1.0); HEMATOCRIT 36.1 % (34.2-44.1); HEMOGLOBIN 11.6 g/dL (12.0-16.0); LYMPHOCYTES # (AUTO) 1.1 (1.0-3.2); LYMPHOCYTES % 9.7 % (18.0-39.1); MEAN CORPUSCULAR HEMOGLOBIN 30.8 pg (28-32); MEAN CORPUSCULAR HGB CONC 32.1 g/dL (31-35); MEAN CORPUSCULAR VOLUME 95.8 fL (81-99); MONOCYTES # (AUTO) 0.3 (0.2-0.8); MONOCYTES % 2.6 % (4.4-11.3); NEUTROPHILS # (AUTO) 9.6 (2.1-6.9); PLATELET COUNT 341 x10e3/uL (140-360); RED BLOOD COUNT 3.77 x10e6/uL (3.6-5.1); RED CELL DISTRIBUTION WIDTH 13.6 % (11.7-14.4)
[2019-09-09 11:17] LABS: ALBUMIN 3.8 g/dL (3.5-5.0); ALBUMIN/GLOBULIN RATIO 1.1 (0.8-2.0); ANION GAP 17.3 mmol/L (8-16); CALCIUM 10.4 mg/dL (8.4-10.2); CREATININE, SERUM 1.34 mg/dL (0.57-1.11); POTASSIUM 4.3 mmol/L (3.5-5.1)
[2019-09-09 11:34] LABS: CLARITY,URINE CLEAR (CLEAR); COLOR,URINE YELLOW (YELLOW); LEUKOCYTE ESTERASE ,URINE NEGATIVE (NEGATIVE)
[2019-09-09 11:35] LABS: BILIRUBIN,URINE NEGATIVE (NEGATIVE); KETONES,URINE 1+ (NEGATIVE); NITRITE,URINE POSITIVE (NEGATIVE); PROTEIN,URINE DIPSTICK 1+ (NEGATIVE); URINE UROBILINOGEN 0.2 mg/dL (0.2 - 1)
[2019-09-09 11:37] LABS: CREATINE KINASE MB 4.4 ng/mL (0-5.0)
--- NOTE | 2019-09-09 11:41 | Diagnostic Imaging Report ---
EXAMINATION: CHEST SINGLE (PORTABLE) INDICATION: Abdominal pain COMPARISON: Chest radiograph 02/11/2018 FINDINGS: LINES/TUBES:EKG leads overlie the chest. LUNGS:The lungs are hyperinflated. Emphysematous changes. No focal consolidation or pulmonary edema. PLEURA:No pleural effusion or pneumothorax. MEDIASTINUM:The cardiomediastinal silhouette appears normal in size and shape. Atherosclerotic calcifications of the thoracic aorta. BONES/SOFT TISSUES:No acute osseous injury. ABDOMEN:No free air under the diaphragm. IMPRESSION: Hyperinflated lungs with emphysematous changes. No focal pneumonia or pulmonary edema. Signed by: Melissa Maldonado MD on 09/09/2019 11:37 AM
[2019-09-09 11:43] LABS: BACTERIA,URINE MANY /HPF; EPITHELIAL CELLS,URINE FEW /LPF
--- NOTE | 2019-09-09 13:31 | Emergency Department Note ---
History of Present Illnes History of Present Illness Chief Complaint: Abdominal Complaints History of Present Illness This is a 79 year old female arrived to the ED of bandlike abdominal pain across her lower abdomen. 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 Any updates have been documented here. Past Medical History Recent Fever: No Clinical Suspicion of Infectio: No New/Unexplained Change in Ment: No Past Medical History: Hypertension, Hypothyroidism, GERD, Hyperlipedemia, Chronic Kidney Disease Other Medical History: V-TACH ENDOCARDITIS Past Surgical History: Hysterectomy Other Surgery: RIGHT ROTATED CUFF Social History Smoking Cessation: Never Smoker Counseling Performed: No Alcohol Use: None Any Illegal Drug Use: No Other Last Tetanus: UTD Any Pre-Existing Lines (PICC,: Yes (PIV) Review of Systems Review of Systems Constitutional: Reports no symptoms EENTM: Reports no symptoms Cardiovascular: Reports no symptoms Respiratory: Reports no symptoms Gastrointestinal: Reports as per HPI, Reports abdominal pain, Reports nausea, Reports vomiting Genitourinary: Reports no symptoms Musculoskeletal: Reports no symptoms Integumentary: Reports no symptoms Neurological: Reports no symptoms Psychological: Reports no symptoms Endocrine: Reports no symptoms Hematological/Lymphatic: Reports no symptoms Physical Exam Related Data Allergies: Coded Allergies: zolpidem (Verified Adverse Reaction, Unknown, palpitation, 09/10/18) Uncoded Allergies: TAPE (Allergy, Unknown, 01/22/18) Triage Vital Signs Vital Signs Date Time Temp Pulse Resp B/P (MAP) Pulse Ox O2 Delivery O2 Flow Rate FiO2 09/09/19 09:59 97.8 84 18 138/86 97 Room Air Vital signs reviewed: Yes Physical Exam CONSTITUTIONAL Constitutional: Present well-developed, Present well-nourished HENT HENT: Present normocephalic, Present atraumatic, Present oropharynx clear/moist, Present nose normal HENT L/R: Present left ext ear normal, Present right ext ear normal EYES Eyes: Reports PERRL, Reports conjunctivae normal NECK Neck: Present ROM normal PULMONARY Pulmonary: Present effort normal, Present breath sounds normal CARDIOVASCULAR Cardiovascular: Present regular rhythm, Present heart sounds normal, Present capillary refill normal, Present normal rate GASTROINTESTINAL Abdominal: Present soft, Present bowel sounds normal, Present tender GENITOURINARY Genitourinary: Present exam deferred SKIN Skin: Present warm, Present dry MUSCULOSKELETAL Musculoskeletal: Present ROM normal NEUROLOGICAL Neurological: Present alert, Present oriented x 3, Present no gross motor or sensory deficits PSYCHOLOGICAL Psychological: Present mood/affect normal, Present judgement normal Results Laboratory Result Diagram: 09/09/19 1024 09/09/19 1024 Laboratory Laboratory Tests Test 09/09/19 10:24 White Blood Count 11.02 x10e3/uL (4.8-10.8) Red Blood Count 3.77 x10e6/uL (3.6-5.1) Hemoglobin 11.6 g/dL (12.0-16.0) Hematocrit 36.1 % (34.2-44.1) Mean Corpuscular Volume 95.8 fL (81-99) Mean Corpuscular Hemoglobin 30.8 pg (28-32) Mean Corpuscular Hemoglobin Concent 32.1 g/dL (31-35) Red Cell Distribution Width 13.6 % (11.7-14.4) Platelet Count 341 x10e3/uL (140-360) Neutrophils (%) (Auto) 87.0 % (38.7-80.0) Lymphocytes (%) (Auto) 9.7 % (18.0-39.1) Monocytes (%) (Auto) 2.6 % (4.4-11.3) Eosinophils (%) (Auto) 0.0 % (0.0-6.0) Basophils (%) (Auto) 0.3 % (0.0-1.0) Neutrophils # (Auto) 9.6 (2.1-6.9) Lymphocytes # (Auto) 1.1 (1.0-3.2) Monocytes # (Auto) 0.3 (0.2-0.8) Eosinophils # (Auto) 0.0 (0.0-0.4) Basophils # (Auto) 0.0 (0.0-0.1) Absolute Immature Granulocyte (auto 0.04 x10e3/uL (0-0.1) Urine Color Yellow (YELLOW) Urine Clarity Clear (CLEAR) Urine pH 5.5 (5 - 7) Urine Specific Felt >=1.030 (1.010-1.025) Urine Protein 1+ (NEGATIVE) Urine Glucose (UA) Negative (NEGATIVE) Urine Ketones 1+ (NEGATIVE) Urine Blood Trace (NEGATIVE) Urine Nitrite Positive (NEGATIVE) Urine Bilirubin Negative (NEGATIVE) Urine Urobilinogen 0.2 mg/dL (0.2 - 1) Urine Leukocyte Esterase Negative (NEGATIVE) Urine RBC 6-10 /HPF (0-5) Urine WBC 6-10 /HPF (0-5) Urine Epithelial Cells Few /LPF (NONE) Urine Bacteria Many /HPF (NONE) Sodium Level 142 mmol/L (136-145) Potassium Level 4.3 mmol/L (3.5-5.1) Chloride Level 107 mmol/L (98-107) Carbon Dioxide Level 22 mmol/L (22-29) Anion Gap 17.3 mmol/L (8-16) Blood Urea Nitrogen 21 mg/dL (7-26) Creatinine 1.34 mg/dL (0.57-1.11) Estimat Glomerular Filtration Rate 38 ML/MIN (60-) BUN/Creatinine Ratio 16 (6-25) Glucose Level 102 mg/dL (74-118) Calcium Level 10.4 mg/dL (8.4-10.2) Total Bilirubin 0.7 mg/dL (0.2-1.2) Aspartate Amino Transf (AST/SGOT) 21 IU/L (5-34) Alanine Aminotransferase (ALT/SGPT) 12 IU/L (0-55) Alkaline Phosphatase 35 IU/L (40-150) Creatine Kinase 62 IU/L (29-168) Creatine Kinase MB 4.40 ng/mL (0-5.0) Troponin I 0.006 ng/mL (0-0.300) Total Protein 7.3 g/dL (6.5-8.1) Albumin 3.8 g/dL (3.5-5.0) Globulin 3.5 g/dL (2.3-3.5) Albumin/Globulin Ratio 1.1 (0.8-2.0) Lipase 14 U/L (8-78) Lab results reviewed: Yes Imaging Imaging results reviewed: Yes Impressions IMPRESSION: Persistent small bowel obstruction with similar appearance of the bowel dilatation. Procedures 12 Lead ECG Interpretation ECG Interpretation : ECG: ECG 1 Prior ECG tracings: reviewed Rhythm: sinus rhythm QRS axis: right Conduction: incomplete RBBB T wave inversion: V1-V6 Assessment & Plan Medical Decision Making MDM 79-year-old female that the ED with abdominal pain, CT findings consistent with a small bowel obstruction. Patient admitted, no indication for NG tube placement at time of admission given patient is not actively vomiting. General surgery to be consulted by primary medical team. Assessment & Plan Final Impression: (1) Small bowel obstruction Depart Disposition: ADMITTED Last Vital Signs Date Time Temp Pulse Resp B/P (MAP) Pulse Ox O2 Delivery O2 Flow Rate FiO2 09/09/19 12:46 65 12 142/63 99 09/09/19 09:59 97.8 Room Air Home Meds Reported Medications Aspirin (ASPIRIN) 325 Mg Tablet, 325 MG PO DAILY for 30 Days, #30 TAB 09/14/18 Amlodipine Besylate (AMLODIPINE BESYLATE) 5 Mg Tablet, 5 MG PO DAILY, #30 TAB 09/09/18 Glucosamine Sulfate 2KCL (GLUCOSAMINE) 1,000 Mg Tablet, 1500 02/11/18 [Calcium] No Conflict Check, 500 02/11/18 [Tylenol Arthritis] No Conflict Check, 650 02/11/18 Levothyroxine Sodium (LEVOTHYROXINE SODIUM) 75 Mcg Tablet, 75 MCG PO DAILY, #30 TAB 02/11/18 Ulysses-3 Acid Ethyl Esters (LOVAZA) 1 Gm Capsule THERAPEUTICALLY SUBSTITUTED WITH OMEGA 3 FATTY ACID 02/11/18 Estrogens Conjugated (PREMARIN) 0.625 Mg Tab, 0.03 MG PO DAILY, #30 TAB 02/11/18 Esomeprazole Magnesium (NEXIUM) 40 Mg Capsule. PROTONIX THERAPEUTIC SUBSTITUTE FOR NEXIUM PER [facility] 02/11/18 Simvastatin (SIMVASTATIN) 20 Mg Tablet, 10 MG PO 2100, EA 02/11/18 Nisoldipine (NISOLDIPINE) 17 Mg Tab.er.24h 02/11/18 Amiodarone Hcl (PACERONE) 200 Mg Tablet 02/11/18 Discontinued Reported Medications Amiodarone Hcl (PACERONE) 100 Mg Tablet 02/11/18 BRIAN MENA DO Sep 09, 2019 13:31
--- NOTE | 2019-09-09 15:57 | Diagnostic Imaging Report ---
EXAM: CT Abdomen and Pelvis WITHOUT intravenous contrast INDICATION: Abdominal pain COMPARISON: None. TECHNIQUE: Abdomen and pelvis were scanned utilizing a multidetector helical scanner from the lung base to the pubic symphysis without administration of IV contrast. Coronal and sagittal reformations were obtained. IV CONTRAST: None ORAL CONTRAST: Water COMPLICATIONS: None RADIATION DOSE: Total DLP: 536 mGy*cm Dose modulation, iterative reconstruction, and/or weight based adjustment of the mA/kV was utilized to reduce the radiation dose to as low as reasonably achievable. FINDINGS: LOWER THORAX: Normal. HEPATOBILIARY: Right and left liver hypodense lesions measure up to 2.9 cm and most likely represent cysts. Vicariously secreted contrast material in the gallbladder, likely related to prior IV contrast administration. SPLEEN: No splenomegaly. PANCREAS: No focal masses or ductal dilatation. ADRENALS: No adrenal nodules. KIDNEYS/URETERS: No hydronephrosis or renal calculi. 1.4 cm left upper pole renal cyst. PELVIC ORGANS/BLADDER: Unremarkable. PERITONEUM / RETROPERITONEUM: Trace free fluid in the pelvis. No free air. LYMPH NODES: Enlarged right inguinal lymph nodes measure up to 3.4 x 2.0 cm. VESSELS: Moderate atherosclerotic calcifications of the nonaneurysmal abdominal aorta and major branches. GI TRACT: Numerous loops of distended fluid-filled small bowel with air-fluid levels which measure up to 3.7 cm maximum diameter. Transition point appears to be in the pelvis. Diverticulosis without CT evidence of diverticulitis. BONES AND SOFT TISSUES: No acute osseous injury. Degenerative changes of the visualized spine. No suspicious lytic or blastic lesions. IMPRESSION: Small bowel obstruction with dilated loops measuring up to 3.7 cm. Transition point appears to be in the pelvis. Diverticulosis without CT evidence of diverticulitis. Right inguinal lymphadenopathy. Signed by: Melissa Maldonado MD on 09/09/2019 3:53 PM
[2019-09-09] MEDS ORDERED: HYDRALAZINE HCL 20 MG/ML VIAL IV PRN (18:45)
[2019-09-09 20:00] VITALS: BP 147/74
[2019-09-09 20:30] VITALS: BP 147/74
--- NOTE | 2019-09-09 20:30 | NUR ---
patient received awake and alert via stretcher from the emergency room to room 214. pain minimal at this time. no nausea/vomiting noted. ivf infusing without difficulty. admit assessment/history complete. call davis placed within reach patient instructed to call for assistance when needed.
[2019-09-09] MEDS: SODIUM CHLORIDE 0.9% 1000ML 1,000 ML IV SCH (22:40)
[2019-09-10] VITALS (9 sets, daily range): BP systolic 98–147; BP diastolic 52–74
--- NOTE | 2019-09-10 00:52 | History and Physical ---
CHIEF COMPLAINT: The patient is an 79-year-old , who came in with abdominal pain starting yesterday. HISTORY OF PRESENTING ILLNESS: Ms. Hernandez with history of hypertension, hyperlipidemia, hypothyroidism, and osteoporosis, was in her usual state of health until the patient started with abdominal pain, noted to be in the right lower quadrant and the patient noticed that the pain is bandlike pain, which transfers across the abdomen and the patient complaining pain of 8/10 in intensity and came to the emergency room and was admitted to the hospital for small bowel obstruction. PAST MEDICAL HISTORY: History of hyperlipidemia, history of hypertension, history of reflux esophagitis, history of hypothyroidism, history of osteoporosis, history of arthritis, history of chronic bronchitis, history of chronic kidney disease, and neurofibromatosis. The patient also has history of acute thyroiditis in the past. Also, the patient has a history of ventricular tachycardia, which she takes amiodarone for. MEDICATIONS: She takes at home Myrbetriq 25 mg, Sular 17 mg, simvastatin 10 mg, Lovaza 1 g, Synthroid 75 mcg, amlodipine 5 mg, Tylenol Arthritis 650 q.6 hours, Pacerone 1 tablet once a day of 200 mg, Premarin 0.3 mg daily, Nexium 40 mg daily, aspirin 81 mg daily, Flonase as needed, glucosamine and chondroitin, calcium 500 mg daily, Prolia 60 mg once in 6 months. PAST SURGICAL HISTORY: Includes history of hysterectomy and rotator cuff surgery. SOCIAL HISTORY: No EtOH. No alcohol abuse. Never smoker. No history of IV drug abuse either. REVIEW OF SYSTEMS: Negative for chest pain. No shortness of breath. No nausea. No vomiting. No diarrhea. Just abdominal pain. Last bowel movement a day ago. PHYSICAL EXAMINATION: VITAL SIGNS: Temperature 97.8, pulse of 84, respirations of 18, blood pressure is 138/86, pulse oximetry of 97% on room air. HEENT: Normocephalic, atraumatic. Pupils are reactive to light and accommodation. CVS: S1 and S2 are normal. Regular rate and rhythm. ABDOMEN: Soft. Bowel sounds are very sluggish. EXTREMITIES: No clubbing. No cyanosis. No edema. LABORATORY VALUES: White count of 11,000, hemoglobin of 11.6, lymphocyte count is 97, neutrophil count of 87. Chemistry shows sodium of 142, BUN of 21, creatinine of 1.34, which is baseline for the patient. ALT and AST are normal. Lipase normal. IMAGING STUDIES: Abdominal CT shows small bowel obstruction with dilated loops, measures up to 3 cm, transition point appears to be in the pelvis. Diverticulosis without CT evidence of diverticulitis. ASSESSMENT: Ms. David Mcdaniel with: 1. Small bowel obstruction. 2. Leukocytosis. 3. History of hypothyroidism. 4. History of hyperlipidemia. PLAN: Keep the patient n.p.o. IV fluids to be started. We will start her on IV antihypertensive. We will continue monitor the patient. Further recommendation per clinical course. MD CHRISTO Mi/MODL /[id number]
[2019-09-10 05:40] LABS: BASOPHILS % 0.3 % (0.0-1.0); EOSINOPHILS % 0.3 % (0.0-6.0); HEMATOCRIT 32.1 % (34.2-44.1); HEMOGLOBIN 10.3 g/dL (12.0-16.0); LYMPHOCYTES % 11.7 % (18.0-39.1); MEAN CORPUSCULAR HEMOGLOBIN 30.5 pg (28-32); MEAN CORPUSCULAR HGB CONC 32.1 g/dL (31-35); MONOCYTES # (AUTO) 0.5 (0.2-0.8); MONOCYTES % 6.1 % (4.4-11.3); NEUTROPHILS % 81.1 % (38.7-80.0); PLATELET COUNT 295 x10e3/uL (140-360); RED BLOOD COUNT 3.38 x10e6/uL (3.6-5.1); RED CELL DISTRIBUTION WIDTH 13.7 % (11.7-14.4)
[2019-09-10 06:27] LABS: ALBUMIN 3.2 g/dL (3.5-5.0); ALBUMIN/GLOBULIN RATIO 1.1 (0.8-2.0); ANION GAP 16.5 mmol/L (8-16); CALCIUM 9.5 mg/dL (8.4-10.2); CREATININE, SERUM 1.2 mg/dL (0.57-1.11); MAGNESIUM 1.9 MG/DL (1.3-2.1); POTASSIUM 4.5 mmol/L (3.5-5.1)
--- NOTE | 2019-09-10 07:38 | Diagnostic Imaging Report ---
EXAM: Abdomen 1 Views INDICATION: ^SBO ^[id number] ^[id number] COMPARISON: CT abdomen pelvis 09/09/2019 FINDINGS: Lines/tubes: None. Mild amount of stool in the colon. Persistent moderate distention of the small bowel related to small bowel obstruction. No renal calculi. No abnormal soft tissue masses. Moderate degenerative changes in the lumbar spine and pelvis. Surgical screws overlying the right femoral head. IMPRESSION: Persistent small bowel obstruction with similar appearance of the bowel dilatation. Signed by: Dr. Leola Camarillo M.D. on 09/10/2019 7:35 AM
[2019-09-10] MEDS: SODIUM CHLORIDE 0.9% 1000ML 1,000 ML IV SCH ×2 (07:57→18:22)
--- NOTE | 2019-09-10 08:37 | NUR ---
PAGED DR. STROUD REGARDING NEW CONSULT.
--- NOTE | 2019-09-10 11:59 | Consultation ---
DATE OF CONSULTATION: 09/10/2019 HISTORY OF PRESENT ILLNESS: The patient is an 79-year-old female who presents with complaints of abdominal pain. She says the pain starts in her right lower quadrant, then progresses to be a band across her lower abdomen. Her symptoms started two days ago. She has associated nausea and vomiting. She says she is not passing any flatus. Last bowel movement, however, was yesterday. She came to the emergency room for CT of the abdomen and pelvis, which revealed findings suggestive of small bowel obstruction and repeat abdominal x-ray also suggested small bowel obstruction. The patient's only previous abdominal surgery is hysterectomy 45 years ago. PAST MEDICAL HISTORY: Significant for hyperlipidemia, hypertension, gastroesophageal reflux disease, hypothyroidism, osteoporosis, arthritis, chronic kidney disease, neurofibromatosis. PAST SURGICAL HISTORY: Only previous surgery as stated above hysterectomy. He also had right rotator cuff surgery. MEDICATIONS: At home are: 1. Myrbetriq. 2. Sular. 3. Simvastatin. 4. Lovaza. 5. Synthroid. 6. Tylenol. 7. Pacerone. 8. Premarin. 9. Nexium. 10. Flonase. 11. Glucosamine and chondroitin. 12. Calcium. 13. Prolia. ALLERGIES: SHE HAS ALLERGY TO TAPE AND AMBIEN. FAMILY HISTORY: Noncontributory. SOCIAL HISTORY: The patient does not smoke cigarettes or drink alcohol. REVIEW OF SYSTEMS: She has had no fever, no weight loss, no diarrhea. PHYSICAL EXAMINATION: GENERAL: The patient is awake and alert. VITAL SIGNS: Normal. She is an afebrile. She is not tachycardic. HEENT: Sclerae are nonicteric. NECK: Supple. No masses. Thyroid is not enlarged. LUNGS: Equal breath sounds. Clear bilaterally. CARDIAC: Regular rate and rhythm. Normal S1 and S2 without murmur, S3, S4. There is no jugular venous distention. ABDOMEN: Soft. There is mild distention. There is no mass. There were no signs of peritonitis. There is no organomegaly and no hernias are appreciated. EXTREMITIES: Warm. There is no edema. NEUROLOGIC: Grossly intact. LABORATORY TESTS: The white blood cell count is 11,000 on admission, repeat is 8.7, hemoglobin 10, hematocrit 32. Chemistries are essentially normal. Imaging is as stated in the history of present illness. ASSESSMENT: An 79-year-old female with small bowel obstruction with no signs of ischemic bowel. At this point, recommend keeping the patient n.p.o. on IV fluids. PLAN: To repeat the abdominal x-ray tomorrow. There are no findings that would warrant immediate surgical intervention. Hopefully, her obstruction will resolve without requiring surgery. This was explained to the patient. Thank you for asking me to see Ms. Hernandez. MD JERSEY White/MODL /[id number]
--- NOTE | 2019-09-10 17:45 | Progress Note ---
DATE: SUBJECTIVE: An 79-year-old female, who came in with small bowel obstruction. The patient is currently n.p.o., feeling better, has been seen back by Surgery. No chest pain or shortness of breath. Does feel some abdominal pain as she started to be hungry. Flatus positive. OBJECTIVE: VITAL SIGNS: Temperature is 98.1, pulse of 66, respirations of 17, blood pressure is 128/52, and pulse oximetry of 99%. HEENT: Normocephalic, atraumatic. Pupils reactive. CVS: S1, S2, normal. Regular rate and rhythm. LUNGS: Clear. ABDOMEN: No bowel sounds yet. EXTREMITIES: No clubbing, no cyanosis, no edema. LABORATORY VALUES: White count is down to 8.69, hemoglobin of 10.3, and hematocrit of 32.1. Chemistry; sodium of 148, potassium of 4.5, BUN of 21, creatinine of 1.20, and GFR 43. Serology, coronavirus is still pending. Urine clean. ASSESSMENT: Ms. Jonas Hernandez with: 1. Small bowel obstruction. 2. History of hypertension. 3. Hyperlipidemia. 4. Arrhythmias. PLAN: Hold off on surgery. Continue with IV fluids. X-rays to be done tomorrow. We will wait for resolution of symptoms, until then keep the patient n.p.o. MD CHRISTO Mi/QASIML /[id number]
--- NOTE | 2019-09-10 19:15 | NUR ---
RECEIVED REPORT FROM PREVIOUS NURSE. CALL LIGHT WITHIN REACH. PATIENT IN BED. ROUNDING PERFORMED.
--- NOTE | 2019-09-10 19:35 | NUR ---
BEDSIDE SHIFT REPORT GIVEN TO THE LOAN BROKER RN. PT DENIED FURTHER NEEDS.
[2019-09-11] VITALS (9 sets, daily range): BP systolic 135–157; BP diastolic 53–71
[2019-09-11] MEDS: SODIUM CHLORIDE 0.9% 1000ML 1,000 ML IV SCH (03:59)
[2019-09-11 06:49] LABS: ANION GAP 14.7 mmol/L (8-16); BLOOD UREA NITROGEN 16 mg/dL (7-26); BUN/CREATININE RATIO 19 (6-25); CALCIUM 8.1 mg/dL (8.4-10.2); CARBON DIOXIDE 20 mmol/L (22-29); CHLORIDE 117 mmol/L (98-107); CREATININE, SERUM 0.85 mg/dL (0.57-1.11); EST GLOMERULAR FILTRATION RATE > 60 ML/MIN (60-); POTASSIUM 3.7 mmol/L (3.5-5.1); SODIUM 148 mmol/L (136-145)
--- NOTE | 2019-09-11 07:00 | NUR ---
BEDSIDE SHIFT REPORT RECEIVED FROM THE REPAIRER RESISTANCE WELDING MACHINES RN. EDUCATED PT ABOUT FALL PRECAUTIONS. PT VERBALIZED UNDERSTANDING. CALL LIGHT WITH IN EASY REACH. INSTRUCTED PT TO USE CALL LIGHT FOR ALL THE NEEDS. BED IS LOW AND LOCKED. SIDE RAILS X2. PT DENIES NEEDS AT THIS TIME.
[2019-09-11 07:08] LABS: GLUCOSE 54 mg/dL (74-118)
--- NOTE | 2019-09-11 07:09 | NUR ---
GAVE REPORT TO ONCOMING NURSE. CALL LIGHT WITHIN REACH. PATIENT IN BED. HOURLY ROUNDING PERFORMED
--- NOTE | 2019-09-11 07:10 | NUR ---
CALL RECEIVED FROM REGARDING PT BLOOD SUGAR 54. REPORTED TO DR. LEVINE AND NEW ORDER RECEIVED FOR D5 1/2 NS 70 ML/HR SCHEDULED. PT IS AAOX4. NO DISTRESS NOTED. PT DENIES NEEDS AT THIS TIME.
[2019-09-11] MEDS ORDERED: DEXTROSE 5%/0.45% SOD CHL 1,000 ML IV SCH (07:15)
[2019-09-11] MEDS ORDERED: DEXTROSE 50% SYRINGE 50 ML IV PRN (07:30)
[2019-09-11] MEDS ORDERED: INSULIN REGULAR, HUMAN 100 UNIT/1 ML 3ML VIAL SQ SCH (07:30)
--- NOTE | 2019-09-11 07:45 | NUR ---
BLOOD SUGAR RECHECKED 68 NOTED. PT IS AAOX4. NO DISTRESS NOTED. PT DENIED FURTHER NEEDS.
--- NOTE | 2019-09-11 08:03 | Progress Note ---
DATE: SUBJECTIVE: An 79-year-old female, who came in with small bowel obstruction. The patient currently has no complaints. No chest pain or shortness of breath. No nausea. No vomiting. No diarrhea. The patient is passing some gas. Abdominal pain is much better. OBJECTIVE: VITAL SIGNS: Temperature is 97.6, pulse of 65, respirations of 20, blood pressure is 135/71, and pulse oximetry of 100%. HEENT: Normocephalic and atraumatic. Pupils are reactive to light and accommodation. CVS: S1 and S2 normal. Regular rate and rhythm. ABDOMEN: Soft. Bowel sounds are positive today. EXTREMITIES: No clubbing. No cyanosis. No edema. IMAGING STUDIES: The patient is awaiting an abdominal x-ray today. LABORATORY VALUES: Normal from yesterday. Chemistries are pending. Yesterday's BUN and creatinine are 20 and 1.20. ASSESSMENT: Ms. Jonas Hernandez with: 1. Small bowel obstruction. 2. History of hypertension. 3. Hyperlipidemia. 4. Arrhythmias. PLAN: Okay to start clear liquids if it is okay with Surgery. Awaiting x-ray results. Continue to monitor the patient and we can restart her home medications. For further information, look into the chart and medicines again look into the chart. MD CHRISTO Mi/ALE /[id number]
--- NOTE | 2019-09-11 08:06 | Diagnostic Imaging Report ---
EXAM: Abdomen 2 Views INDICATION: ^small bowel obstruction ^[id number] ^[id number] COMPARISON: KUB 09/10/[address] abdomen pelvis 09/09/2019 FINDINGS: Lines/tubes: None. Moderate amount of stool in the colon. Decreased dilatation of the small bowel. No renal calculi. No abnormal soft tissue masses. Advanced degenerative changes in the lumbar spine and pelvis. Surgical screws overlying the right femoral head. IMPRESSION: Improving small bowel obstruction. Signed by: Dr. Leola Camarillo M.D. on 09/11/2019 8:03 AM
--- NOTE | 2019-09-11 11:15 | NUR ---
PAGED DR. STROUD OFFICE PER DR. LEVINE REGARDING STARTING CLEAR LIQUIDS.
--- NOTE | 2019-09-11 11:30 | NUR ---
CALL BACK RECEIVED FROM DR. LAM. MOORE TO START CLEAR LIQUIDS THE
[2019-09-11] MEDS: INSULIN REGULAR, HUMAN 100 UNIT/1 ML 3ML VIAL SQ SCH ×2 (12:00→18:00)
[2019-09-11] MEDS ORDERED: SODIUM CHLORIDE 0.9% 1000ML 1,000 ML IV SCH (18:15)
--- NOTE | 2019-09-11 19:05 | NUR ---
RECEIVED BEDSIDE SHIFT REPORT FROM PREVIOUS NURSE. CALL LIGHT WITHIN REACH. PATIENT IN BED.
--- NOTE | 2019-09-11 19:14 | NUR ---
BEDSIDE SHIFT REPORT GIVEN TO THE GENERAL LABOR FORKLIFT OPERATOR RN. PT DENIED FURTHER NEEDS.
--- NOTE | 2019-09-11 23:30 | NUR ---
CALLED AND TALKED TO DR. LEVINE BECAUSE PATIENT IS REQUESTING TO HAVE HER IV FLUIDS DISCONTINUED. PATIENT SAYS IT IS MAKING HER PEE EVERY HOUR. DR. LEVINE SAID TO DISCONTINUE THE IV FLUIDS.
[2019-09-12] VITALS (8 sets, daily range): BP systolic 115–143; BP diastolic 53–85
[2019-09-12] MEDS: INSULIN REGULAR, HUMAN 100 UNIT/1 ML 3ML VIAL SQ SCH ×4 (06:00→17:01)
--- NOTE | 2019-09-12 07:15 | NUR ---
GAVE BEDSIDE SHIFT REPORT TO ONCOMING NURSE. CALL LIGHT WITHIN REACH. PATIENT IN BED. HOURLY ROUNDING PERFORMED
--- NOTE | 2019-09-12 09:51 | Progress Note ---
DATE: SUBJECTIVE: The patient is an 79-year-old female, who came in with small bowel obstruction. Currently, on clear liquid diet as tolerated. Still has some abdominal pain. Passing gas. No bowel movements yet. No chest pain. No shortness of breath. OBJECTIVE: VITAL SIGNS: Temperature is 97.9, pulse of 53, respirations 16, blood pressure is 133/57, and pulse oximetry 100% on room air. HEENT: Normocephalic and atraumatic. Pupils are reactive. CVS: S1 and S2, normal regular rhythm. ABDOMEN: Soft, tender slightly of the right lower quadrant. EXTREMITIES: No clubbing, no cyanosis, no edema. MEDICATIONS: Hydralazine, and insulin. ASSESSMENT: Ms. Jonas Hernandez with small-bowel obstruction. PLAN: Plan is to upgrade her nutrition to full liquid. Restart home medications. Further recommendation per clinical course. We will continue to monitor the patient. We will increase her diet tomorrow and possible discharge tomorrow if the patient is able to tolerate food. MD CHRISTO Mi/MODL /[id number]
[2019-09-12] MEDS: AMLODIPINE BESYLATE 5 MG TAB PO SCH (09:58)
[2019-09-12] MEDS: PANTOPRAZOLE SOD 40 MG TABEC PO SCH (09:58)
[2019-09-12] MEDS: LEVOTHYROXINE SODIUM 75 MCG TAB PO SCH (09:58)
[2019-09-12] MEDS: AMIODARONE HCL 200 MG TAB PO SCH (09:58)
--- NOTE | 2019-09-12 19:05 | NUR ---
RECEIVED REPORT FROM PREVIOUS NURSE. CALL LIGHT WITHIN REACH. PATIENT IN BED. ROUNDING PERFORMED
[2019-09-12] MEDS ORDERED: SIMVASTATIN 20 MG TAB PO SCH (21:00)
[2019-09-13 05:29] VITALS: BP 139/61
[2019-09-13] MEDS: INSULIN REGULAR, HUMAN 100 UNIT/1 ML 3ML VIAL SQ SCH ×3 (06:00→11:28)
--- NOTE | 2019-09-13 07:03 | NUR ---
GAVE BEDSIDE SHIFT REPORT TO ONCOMING NURSE. CALL LIGHT WITHIN REACH. PATIENT IN BED. HOURLY ROUNDING PERFORMED.
--- NOTE | 2019-09-13 07:20 | Progress Note ---
DATE: SUBJECTIVE: The patient is an 79-year-old female, who came in with small bowel obstruction. She is doing well and tolerated a full liquid diet yesterday, had 2 bowel movements. No chest pain. No shortness of breath. No abdominal pain. OBJECTIVE: VITAL SIGNS: Temperature is 97.5, afebrile, pulse of 57, respirations of 16, blood pressure is 139/61, pulse oximetry of 98%. HEENT: Normocephalic and atraumatic. Pupils reactive to light and accommodation. CVS: S1 and S2 normal. Regular rate and rhythm. ABDOMEN: Soft, nontender, and nondistended. Bowel sounds are positive. EXTREMITIES: No clubbing, no cyanosis, no edema. IMAGING: X-ray series shows improving small-bowel from 09/10. ASSESSMENT AND PLAN: The patient with small-bowel obstruction. Doing well. Can be upgraded to a soft mechanical diet, if the patient is able to tolerate it. Can be discharged home. To be followed up with Surgery as an outpatient basis. Further recommendation per clinical course. MD CHRISTO Mi/QASIML /[id number]
[2019-09-13 08:12] VITALS: BP 160/70
[2019-09-13 08:18] VITALS: BP 160/70
[2019-09-13] MEDS: LEVOTHYROXINE SODIUM 75 MCG TAB PO SCH (08:27)
[2019-09-13] MEDS: AMIODARONE HCL 200 MG TAB PO SCH (08:27)
[2019-09-13] MEDS: AMLODIPINE BESYLATE 5 MG TAB PO SCH (08:27)
[2019-09-13] MEDS: PANTOPRAZOLE SOD 40 MG TABEC PO SCH (08:27)
--- NOTE | 2019-09-13 10:00 | NUR ---
IMM letter delivered and explained to pt. She verbalized understanding. Signed copy placed in chart. Copy to pt.
[2019-09-13 11:35] VITALS: BP 128/58
--- OUTSIDE RECORDS SUMMARY | 2019-10-08 04:44 | XMS REPORT | Continuity of Care Document ---
Author Author [employer] Organization [employer] Address Unknown Phone Unavailable Care Team Providers Care Medical Auditor Name Role Phone [employer] Unavailable Un available Problems Problem Status Onset Date Classification Date Reported Comments Source INFED 500MG /// CPT: J1750, 48737 /// DX Active 06/30/2017 [facility] Other disorders of lung 04/26/2017 07/29/2017 ELI[facility] [place] PROCRIT 40,000 UNITS WEEKLY X4, J0885, C Active 04/02/2016 [facility] PROCRIT 40,000 UNITS WEEKLY X4, J0885 Active 04/02/2016 [facility] INFED 500 MG J1750, CPT-73149, D46.9, D6 Active 02/28/2016 [facility] D46.9 Active 01/26/2015 [facility] 518.89 ABNORMALITY OF LUNG Ac tive 10/12/2013 [facility] Conduction disorder of the heart (disorder) Resolved Problem [facility]09[facility] Chronic anemia (disorder) Acti ve Problem 04/2017 [facility] [place] Incontinence of feces (finding) Resolved Problem 04/2017 [facility] [place] Myelodysplastic syndrome (disorder) Resolved Problem 04/2017 [facility] [place] Herniation of rectum into vagina (disorder) Resolved Problem 08/09/[facility] Ventricular tachycardia (disorder) Resolved Problem 04/2017 [facility] [place] cardiomyopathy(Confirmed) Acti ve Problem 11/2013 [facility] cholesterol(Confirmed) Active Problem 10/16/2013 [facility] heartburn(Confirmed) Active Problem 10/16/2013 [facility] hypertension(Confirmed) Active Problem 10/16/2013 [facility] iron deficiency(Confirmed) Act tj Problem 11/2013 [facility] viral(Confirmed) Resolved Problem 10/16/2013 [facility] MYELODYSPLASTIC SYNDROME, UNSPECIFIED Active [facility] OTHER LUNG DISEASE NEC Active [facility] ANEMIA IN CHRONIC KIDNEY DISEASE Active [facility] IRON DEFICIENCY ANEMIA, UNSPECIFIED Active [facility] Medications Medication Details Route Status Patient Instructions Ordering Provider Order Date Source dexamethasone + Sodium Chloride 0.9% IV 47.5 mL Notes: PROTECT FROM LIGHT Inactive 07/22/2017 [facility] iron dextran + Sodium Chloride 0.9% IV 490 mL Notes: (Same as:DexFerrum) Non Formulary MEDICATION WASTE Product Size: 100 mg Product Wasted: ___ mg Inactive 07/22/2017 [facility] famotidine Notes: (Same as: Pe pcid) Inactive 07/22/2017 [facility] Benadryl Notes: (Same as: Howes dryl) Inactive 07/22/2017 [facility] 24 HR mirabegron 25 MG Extended Release Tablet [Myrbetriq] 25 mg = 1 tab, PO, PRN, # 30 tab, 5 Refill(s) Active 07/15/2017 [facility] sodium chloride 0.9% INJ 250 m L, PYXIS, ONCE, Start date: 07/15/17 9:30:00 CDT Inactive 07/15/2017 [facility] famotidine Notes: (Same as: Pe pcid) Inactive 07/15/2017 [facility] Benadryl Notes: (Same as: Howes dryl) Inactive 07/15/2017 [facility] iron dextran + Sodium Chloride 0.9% IV 490 mL Notes: (Same as:DexFerrum) Non Formulary MEDICATION WASTE Product Size: 100 mg Product Wasted: ___ mg Inactive 07/15/2017 [facility] dexamethasone + Sodium Chloride 0.9% IV 47.5 mL Notes: PROTECT FROM LIGHT Inactive 07/15/2017 [facility] iron dextran + Sodium Chloride 0.9% IV 490 mL Notes: (Same as:DexFerrum) Non Formulary MEDICATION WASTE Product Size: 100 mg Product Wasted: ___ mg Inactive 07/08/2017 [facility] dexamethasone + Sodium Chloride 0.9% IV 47.5 mL 10 mg, 2.5 mL, Route: IVPB, Drug form: INJ, ONCALL, Start date: 07/08/17 9:30:00 CDT, Duration: 10 hr, Stop date: 07/08/17 19:29:00 CDT Inactive 07/08/2017 [facility] Benadryl Notes: (Same as: Howes dryl) Inactive 07/08/2017 [facility] famotidine Notes: (Same as: Pe pcid) Inactive 07/08/2017 [facility] Procrit Notes: (Same as: Procr it) Procrit 20,000 unit/ml VL. For non-dialysis use in adult only. WASTE: F/P - Red; E -Red To be used in dialysis for children; Contains different preservative. No Longer Active 04/16/2016 [facility] Procrit Notes: (Same as: Procr it) epoetin madeline 05391 unit/1 ml VL. For non-dialysis use only. MEDICATION WASTE Product Size: 81563 unit Product Wasted: ___ unit Inactive 04/09/2016 [facility] Pepcid Notes: (Same as: Pepcid ) Can be dilute in 5-10cc NS IVP: Slow IV push over at least 2 minutes. Inactive 04/09/2016 [facility] Benadryl + sodium chloride 0.9% INJ 50 mL Notes: (Same as: Benadryl) Inactive 04/09/2016 [facility] dexamethasone + sodium chloride 0.9% INJ 50 mL Notes: PROTECT FROM LIGHT Inactive 04/09/2016 [facility] Sodium Chloride 0.9% IV IV, 30 ml/hr, ONCALL, Start date: 04/09/16 8:00:00 COATING ENGINEER, Duration: 12, 250 ml Inactive 04/09/2016 [facility] Procrit Notes: (Same as: Procr it) Procrit 20,000 unit/ml VL. For non-dialysis use in adult only. WASTE: F/P - Red; E -Red To be used in dialysis for children; Contains different preservative. Inactive 04/09/2016 [facility] DexFerrum + sodium chloride 0.9% 500 ml INJ 490 mL Notes: (Same as:DexFerrum) Non-Formulary PROTECT FROM LIGHT Inactive 04/02/2016 [facility] Pepcid Notes: (Same as: Pepcid ) Can be dilute in 5-10cc NS IVP: Slow IV push over at least 2 minutes. Inactive 04/02/2016 [facility] dexamethasone + sodium chloride 0.9% INJ 50 mL Notes: PROTECT FROM LIGHT Inactive 04/02/2016 [facility] Benadryl Notes: (Same as: Howes dryl) Inactive 04/02/2016 [facility] Sodium Chloride 0.9% IV IV, 30 ml/hr, ONCALL, Start date: 04/02/16 9:00:00 COATING ENGINEER, Duration: 8, 250 ml Inactive 04/02/2016 [facility] DexFerrum + sodium chloride 0.9% 500 ml INJ 490 mL Notes: (Same as:DexFerrum) Non-Formulary PROTECT FROM LIGHT Inactive 03/26/2016 [facility] Pepcid Notes: (Same as: Pepcid ) Can be dilute in 5-10cc NS IVP: Slow IV push over at least 2 minutes. Inactive 03/26/2016 [facility] Benadryl + sodium chloride 0.9% INJ 50 mL Notes: (Same as: Benadryl) Inactive 03/26/2016 [facility] dexamethasone + sodium chloride 0.9% INJ 50 mL Notes: PROTECT FROM LIGHT Inactive 03/26/2016 [facility] Sodium Chloride 0.9% IV IV, 30 ml/hr, ONCALL, Start date: 03/26/16 9:30:00 COATING ENGINEER, Duration: 8, 250 ml Inactive 03/26/2016 [facility] Pepcid Notes: (Same as: Pepcid ) Can be dilute in 5-10cc NS IVP: Slow IV push over at least 2 minutes. Inactive 03/19/2016 [facility] Benadryl + sodium chloride 0.9% INJ 50 mL Notes: (Same as: Benadryl) Inactive 03/19/2016 [facility] dexamethasone + sodium chloride 0.9% INJ 50 mL Notes: PROTECT FROM LIGHT Inactive 03/19/2016 [facility] DexFerrum + sodium chloride 0.9% 500 ml INJ 490 mL Notes: (Same as:DexFerrum) Non-Formulary PROTECT FROM LIGHT Inactive 03/19/2016 [facility] Sodium Chloride 0.9% IV IV, 30 ml/hr, ONCALL, Start date: 03/18/16 16:00:00 COATING ENGINEER, Duration: 8, 250 ml Inactive 03/18/2016 [facility] Pepcid Notes: (Same as: Pepcid ) Can be dilute in 5-10cc NS IVP: Slow IV push over at least 2 minutes. No Longer Active 03/13/2016 [facility] Sodium Chloride 0.9% IV IV, 30 ml/hr, PRN, PRN Line Flush, Start date: 03/12/16 10:00:00 COATING ENGINEER, Duration: 8, 250 ml Inactive 2016 [facility] dexamethasone + sodium chloride 0.9% INJ 50 mL Notes: PROTECT FROM LIGHT Inactive 2016 [facility] DexFerrum + sodium chloride 0.9% 500 ml INJ 490 mL Notes: (Same as:DexFerrum) Non-Formulary PROTECT FROM LIGHT Inactive 2016 [facility] Procrit Notes: (Same as: Procr it) Procrit 20,000 unit/ml VL. For non-dialysis use in adult only. To be used in dialysis for children; Contains different preservative. Inactive 2016 [facility] Benadryl + sodium chloride 0.9% INJ 50 mL Notes: (Same as: Benadryl) Inactive 2016 [facility] Procrit Notes: (Same as: Procr it) Procrit 20,000 unit/ml VL. For non-dialysis use in adult only. To be used in dialysis for children; Contains different preservative. Inactive 02/20/2015 [facility] Procrit Notes: (Same as: Procr it) Procrit 20,000 unit/ml VL. For non-dialysis use in adult only. To be used in dialysis for children; Contains different preservative. Inactive 02/13/2015 [facility] Procrit Notes: (Same as: Procr it) Procrit 20,000 unit/ml VL. For non-dialysis use in adult only. To be used in dialysis for children; Contains different preservative. Inactive 02/06/2015 [facility] epoetin madeline Notes: (Same as: Procrit) Procrit 20,000 unit/ml VL. For non-dialysis use in adult only. To be used in dialysis for children; Contains different preservative. Inactive 01/30/2015 [facility] Allergies, Adverse Reactions, Alerts Substance Category Reaction Severity Reaction type Status Date Reported Comments Source codeine Assertion hallucination Drug allergy Active [facility] Tape Assertion breaks skin Drug allergy Active [facility] Immunizations No Data Provided for This Section Results No Data Provided for This Section Pathology Reports No Data Provided for This Section Diagnostic Reports Report Value Date Source Chest 2 views DX EXAM: XR CHES T 2 VIEWS DATE: 04/22/2017 11:14 AM COATING ENGINEER INDICATION: - J98.4 Other disorders of lung [...] Source Systolic (mm Hg) 120 07/22/2017 [facility] Diastolic (mm Hg) 74 07/22/2017 [facility] Heart Rate 74 07/22/2017 [facility] Respitory Rate 18 07/22/2017 [facility] Temperature Oral (F) 97.5 F 07/22/2017 [facility] Temperature Oral (F) 97.7 F 07/08/2017 [facility] Respitory Rate 18 07/08/2017 [facility] Systolic (mm Hg) 110 07/08/2017 [facility] Diastolic (mm Hg) 68 07/08/2017 [facility] Heart Rate 70 07/08/2017 [facility] BMI Calculated 20.35 07/07/2017 [facility] Weight 58.8 07/07/2017 [facility] Height 170 cm 07/07/2017 [facility] Systolic (mm Hg) 134 04/02/2016 [facility] Diastolic (mm Hg) 70 04/02/2016 [facility] Heart Rate 66 04/02/2016 [facility] Respitory Rate 16 04/02/2016 [facility] Temperature Oral (F) 98 F 04/02/2016 [facility] Respitory Rate 18 03/26/2016 [facility] Temperature Oral (F) 97.8 F 03/26/2016 [facility] Heart Rate 72 03/26/2016 [facility] Systolic (mm Hg) 106 03/26/2016 [facility] Diastolic (mm Hg) 65 03/26/2016 [facility] Systolic (mm Hg) 135 03/19/2016 [facility] Diastolic (mm Hg) 77 03/19/2016 [facility] Respitory Rate 18 03/19/2016 [facility] Temperature Oral (F) 98.1 F 03/19/2016 [facility] Heart Rate 65 03/19/2016 [facility] Weight 58.8 03/08/2016 [facility] BMI Calculated 20.32 03/08/2016 [facility] Height 170.1 cm 03/08/2016 [facility] Height 170.18 cm 01/30/2015 [facility] BMI Calculated 20.3 01/30/2015 [facility] Weight 58.8 01/30/2015 [facility] Encounters Location Location Details Encounter Type Encounter Number Reason For Visit Attending Provider ADM Date DC Date Status Source [facility] Outpatient [id number] Kirtcl Hu 10/14/2013 10/15/2013 [facility] OP Recurring [id number] Ping Salazar 01/30/2015 03/01/2015 [facility] Recurring [id number] Ping Salazar 2016 04/11/2016 [facility] Recurring [id number] Ping Salazar 04/09/2016 05/09/2016 [facility] [place] [facility] [id number] Hu 04/22/2017 04/23/2017 ELIEL Ragland [facility] Recurring [id number] Pin Salazar 07/08/2017 08/07/2017 [facility] Procedures Procedure Code Date Perfomer Comments Source Rotator cuff repair [id number] [facility]/10[id number]<sup>[facility]</sup> [id number] bi-annual Infed infusions fo r chronic iron deficiency anemia [facility] [id number] [facility] Assessment and Plan No Data Provided for This Section Plan of Care No Data Provided for This Section Social History Social History Date Source Social History TypeResponse Alcohol Current, Previous treatment: None. Smoking Status Never smoker; Exposure to Tobacco Smoke None; Cigarette Smoking Last 365 Days No; Reg Smoking Cessation Counseling No entered on: 07/22/17 02/12/2013 ELI[facility] Ragland Social History TypeResponse Alcohol Current, Previous treatment: None. Smoking Status Never smoker; Exposure to Tobacco Smoke None; Cigarette Smoking Last 365 Days No; Reg Smoking Cessation Counseling No entered on: 07/22/17 02/12/2013 [facility] Family History No Data Provided for This Section Advance Directives No Data Provided for This Section Functional Status No Data Provided for This Section
--- OUTSIDE RECORDS SUMMARY | 2019-10-08 04:54 | XMS REPORT | Continuity of Care Document ---
Author Author [employer] Organization [employer] Address Unknown Phone Unavailable Care Team Providers Care Business Integration Manager Name Role Phone [email or web address] Unavailable Un available Problems Problem Status Onset Date Classification Date Reported Comments Source INFED 500MG /// CPT: J1750, 64544 /// DX Active 06/30/2017 [facility] Other disorders of lung 04/26/2017 07/29/2017 [facility] PROCRIT 40,000 UNITS WEEKLY X4, J0885, C Active 04/02/2016 [facility] PROCRIT 40,000 UNITS WEEKLY X4, J0885 Active 04/02/2016 [facility] INFED 500 MG J1750, CPT-40836, D46.9, D6 Active 02/28/2016 [facility] D46.9 Active 01/26/2015 [facility] 518.89 ABNORMALITY OF LUNG Ac tive 10/12/2013 [facility] Conduction disorder of the heart (disorder) Resolved Problem [facility]09[facility] Chronic anemia (disorder) Acti ve Problem 04/2017 [facility] [place] [place] Incontinence of feces (finding) Resolved Problem 04/2017 [facility] [place] Myelodysplastic syndrome (disorder) Resolved Problem 04/2017 [facility] [place] Herniation of rectum into vagina (disorder) Resolved Problem 08/09[facility] Ventricular tachycardia (disorder) Resolved Problem 04/2017 [facility] [place] [place] cardiomyopathy(Confirmed) Acti ve Problem 11/2013 [facility] cholesterol(Confirmed) Active Problem 10/16/2013 [facility] heartburn(Confirmed) Active Problem 10/16/2013 [facility] hypertension(Confirmed) Active Problem 10/16/2013 [facility] iron deficiency(Confirmed) Act tj Problem 11/2013 [facility] viral(Confirmed) Resolved Problem 10/16/2013 [facility] MYELODYSPLASTIC SYNDROME, UNSPECIFIED Active [facility] OTHER LUNG DISEASE NEC Active [facility] ANEMIA IN CHRONIC KIDNEY DISEASE Active [facility] IRON DEFICIENCY ANEMIA, UNSPECIFIED Active [facility] Medications Medication Details Route Status Patient Instructions Ordering Provider Order Date Source dexamethasone + Sodium Chloride 0.9% IV 47.5 mL Notes: PROTECT FROM LIGHT Inactive 07/22/2017 [facility] iron dextran + Sodium Chloride 0.9% IV 490 mL Notes: (Same as:DexFerrum) Non Formulary MEDICATION WASTE Product Size: 100 mg Product Wasted: ___ mg Inactive 07/22/2017 [facility] famotidine Notes: (Same as: Pe pcid) Inactive 07/22/2017 [facility] Benadryl Notes: (Same as: Delton dryl) Inactive 07/22/2017 [facility] 24 HR mirabegron 25 MG Extended Release Tablet [Myrbetriq] 25 mg = 1 tab, PO, PRN, # 30 tab, 5 Refill(s) Active 07/15/2017 [facility] sodium chloride 0.9% INJ 250 m L, PYXIS, ONCE, Start date: 07/15/17 9:30:00 CDT Inactive 07/15/2017 [facility] famotidine Notes: (Same as: Pe pcid) Inactive 07/15/2017 [facility] Benadryl Notes: (Same as: Delton dryl) Inactive 07/15/2017 [facility] iron dextran + Sodium Chloride 0.9% IV 490 mL Notes: (Same as:DexFerrum) Non Formulary MEDICATION WASTE Product Size: 100 mg Product Wasted: ___ mg Inactive 07/15/2017 [facility] dexamethasone + Sodium Chloride 0.9% IV 47.5 mL Notes: PROTECT FROM LIGHT Inactive 07/15/2017 [facility] iron dextran + Sodium Chloride 0.9% IV 490 mL Notes: (Same as:DexFerrum) Non Formulary MEDICATION WASTE Product Size: 100 mg Product Wasted: ___ mg Inactive 07/08/2017 [facility] dexamethasone + Sodium Chloride 0.9% IV 47.5 mL 10 mg, 2.5 mL, Route: IVPB, Drug form: INJ, ONCALL, Start date: 07/08/17 9:30:00 CDT, Duration: 10 hr, Stop date: 07/08/17 19:29:00 CDT Inactive 07/08/2017 [facility] Benadryl Notes: (Same as: Delton dryl) Inactive 07/08/2017 [facility] famotidine Notes: (Same as: Pe pcid) Inactive 07/08/2017 [facility] Procrit Notes: (Same as: Procr it) Procrit 20,000 unit/ml VL. For non-dialysis use in adult only. WASTE: F/P - Red; E -Red To be used in dialysis for children; Contains different preservative. No Longer Active 04/16/2016 [facility] Procrit Notes: (Same as: Procr it) epoetin madeline 43004 unit/1 ml VL. For non-dialysis use only. MEDICATION WASTE Product Size: 83511 unit Product Wasted: ___ unit Inactive 04/09/2016 [facility] Pepcid Notes: (Same as: Pepcid ) Can be dilute in 5-10cc NS IVP: Slow IV push over at least 2 minutes. 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 For non-dialysis use in adult only. WASTE: F/P - Red; E -Red To be used in dialysis for children; Contains different preservative. Inactive 04/09/2016 [facility] DexFerrum + sodium chloride 0.9% 500 ml INJ 490 mL Notes: (Same as:DexFerrum) Non-Formulary PROTECT FROM LIGHT Inactive 04/02/2016 [facility] Pepcid Notes: (Same as: Pepcid ) Can be dilute in 5-10cc NS IVP: Slow IV push over at least 2 minutes. Inactive 04/02/2016 [facility] dexamethasone + sodium chloride 0.9% INJ 50 mL Notes: PROTECT FROM LIGHT Inactive 04/02/2016 [facility] Benadryl Notes: (Same as: Delton dryl) Inactive 04/02/2016 [facility] Sodium Chloride 0.9% IV IV, 30 ml/hr, ONCALL, Start date: 04/02/16 9:00:00 ROTARY SHEAR WORKER HELPER, Duration: 8, 250 ml Inactive 04/02/2016 [facility] DexFerrum + sodium chloride 0.9% 500 ml INJ 490 mL Notes: (Same as:DexFerrum) Non-Formulary PROTECT FROM LIGHT Inactive 03/26/2016 [facility] Pepcid Notes: (Same as: Pepcid ) Can be dilute in 5-10cc NS IVP: Slow IV push over at least 2 minutes. Inactive 03/26/2016 [facility] Benadryl + sodium chloride 0.9% INJ 50 mL Notes: (Same as: Benadryl) Inactive 03/26/2016 [facility] dexamethasone + sodium chloride 0.9% INJ 50 mL Notes: PROTECT FROM LIGHT Inactive 03/26/2016 [facility] Sodium Chloride 0.9% IV IV, 30 ml/hr, ONCALL, Start date: 03/26/16 9:30:00 ROTARY SHEAR WORKER HELPER, Duration: 8, 250 ml Inactive 03/26/2016 [facility] Pepcid Notes: (Same as: Pepcid ) Can be dilute in 5-10cc NS IVP: Slow IV push over at least 2 minutes. Inactive 03/19/2016 [facility] Benadryl + sodium chloride 0.9% INJ 50 mL Notes: (Same as: Benadryl) Inactive 03/19/2016 [facility] dexamethasone + sodium chloride 0.9% INJ 50 mL Notes: PROTECT FROM LIGHT Inactive 03/19/2016 [facility] DexFerrum + sodium chloride 0.9% 500 ml INJ 490 mL Notes: (Same as:DexFerrum) Non-Formulary PROTECT FROM LIGHT Inactive 03/19/2016 [facility] Sodium Chloride 0.9% IV IV, 30 ml/hr, ONCALL, Start date: 03/18/16 16:00:00 R[employer]ARY SHEAR WORKER HELPER, Duration: 8, 250 ml Inactive 03/18/2016 [facility] Pepcid Notes: (Same as: Pepcid ) Can be dilute in 5-10cc NS IVP: Slow IV push over at least 2 minutes. No Longer Active 03/13/2016 [facility] Sodium Chloride 0.9% IV IV, 30 ml/hr, PRN, PRN Line Flush, Start date: 03/12/16 10:00:00 [employer]ARY SHEAR WORKER HELPER, Duration: 8, 250 ml Inactive 2016 [facility] dexamethasone + sodium chloride 0.9% INJ 50 mL Notes: PROTECT FROM LIGHT Inactive 2016 [facility] DexFerrum + sodium chloride 0.9% 500 ml INJ 490 mL Notes: (Same as:DexFerrum) Non-Formulary PROTECT FROM LIGHT Inactive 2016 [facility] Procrit Notes: (Same as: Procr it) Procrit 20,000 unit/ml VL. For non-dialysis use in adult only. To be used in dialysis for children; Contains different preservative. Inactive 2016 [facility] Benadryl + sodium chloride 0.9% INJ 50 mL Notes: (Same as: Benadryl) Inactive 2016 [facility] Procrit Notes: (Same as: Procr it) Procrit 20,000 unit/ml VL. For non-dialysis use in adult only. To be used in dialysis for children; Contains different preservative. Inactive 02/20/2015 [facility] Procrit Notes: (Same as: Procr it) Procrit 20,000 unit/ml VL. For non-dialysis use in adult only. To be used in dialysis for children; Contains different preservative. Inactive 02/13/2015 [facility] Procrit Notes: (Same as: Procr it) Procrit 20,000 unit/ml VL. For non-dialysis use in adult only. To be used in dialysis for children; Contains different preservative. Inactive 02/06/2015 [facility] epoetin madeline Notes: (Same as: Procrit) Procrit 20,000 unit/ml VL. For non-dialysis use in adult only. To be used in dialysis for children; Contains different preservative. 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 INDICATION: - J98.4 Other disorders of lung [...] Comments Source Systolic (mm Hg) 120 07/22/2017 [facility] Diastolic (mm Hg) 74 07/22/2017 [facility] Heart Rate 74 07/22/2017 [facility] Respitory Rate 18 07/22/2017 [facility] Temperature Oral (F) 97.5 F 07/22/2017 [facility] Temperature Oral (F) 97.7 F 07/08/2017 [facility] Respitory Rate 18 07/08/2017 [facility] Systolic (mm Hg) 110 07/08/2017 [facility] Diastolic (mm Hg) 68 07/08/2017 [facility] Heart Rate 70 07/08/2017 [facility] BMI Calculated 20.35 07/07/2017 [facility] Weight 58.8 07/07/2017 [facility] Height 170 cm 07/07/2017 [facility] Systolic (mm Hg) 134 04/02/2016 [facility] Diastolic (mm Hg) 70 04/02/2016 [facility] Heart Rate 66 04/02/2016 [facility] Respitory Rate 16 04/02/2016 [facility] Temperature Oral (F) 98 F 04/02/2016 [facility] Respitory Rate 18 03/26/2016 [facility] Temperature Oral (F) 97.8 F 03/26/2016 [facility] Heart Rate 72 03/26/2016 [facility] Systolic (mm Hg) 106 03/26/2016 [facility] Diastolic (mm Hg) 65 03/26/2016 [facility] Systolic (mm Hg) 135 03/19/2016 [facility] Diastolic (mm Hg) 77 03/19/2016 [facility] Respitory Rate 18 03/19/2016 [facility] Temperature Oral (F) 98.1 F 03/19/2016 [facility] Heart Rate 65 03/19/2016 [facility] Weight 58.8 03/08/2016 [facility] BMI Calculated 20.32 03/08/2016 [facility] Height 170.1 cm 03/08/2016 [facility] Height 170.18 cm 01/30/2015 [facility] BMI Calculated 20.3 01/30/2015 [facility] Weight 58.8 01/30/2015 [facility] Encounters Location Location Details Encounter Type Encounter Number Reason For Visit Attending Provider ADM Date DC Date Status Source [facility] Out[facility] [id number] Kirtcl Hu 10/14/2013 10/15/2013 [facility] OP Recurring [id number] Ping Salazar 01/30/2015 03/01/2015 [facility] Recurring [id number] Ping Salazar 2016 04/11/2016 [facility] Recurring [id number] Ping Salazar 04/09/2016 05/09/2016 [facility] [id number] Hu 04/22/2017 04/23/2017 ELIEL Ragland [facility] Recurring [id number] Pin Salazar 07/08/2017 08/07/2017 [facility] Procedures Procedure Code Date Perfomer Comments Source Rotator cuff repair [id number] [facility]/10[id number]10[facility]<sup>[facility]</sup> [id number] bi-annual Infed infusions fo r chronic iron deficiency anemia [id number] [facility] Assessment and Plan No Data Provided [...] Cessation Counseling No entered on: 07/22/17 02/12/2013 [facility] Family History No Data Provided for This Section Advance Directives No Data Provided for This Section Functional Status No Data Provided for This Section
--- OUTSIDE RECORDS SUMMARY | 2019-10-08 04:54 | XMS REPORT | Clinical Summary ---
Author Author [employer] Organization [employer] Address Unknown Phone Unavailable Care Team Providers Care Logging Specialist Name Role Phone Dharmesh Rivera MD PCP [...] 0 extended release 24 hr as needed. Active amLODIPine (NORVASC) 5 mg Take 5 mg by 0 tablet mouth daily. Active lidocaine (LIDODERM) 5 % Remove & 30 patch 0 0 Discard patch 9 within 12 hours or as directed by MD Active Problems Problem Noted Date Gluteal tendinitis of both buttocks 05/21/2018 It band syndrome, left 05/21/2018 It band syndrome, right 05/21/2018 Anemia in chronic kidney disease 05/21/2018 Cardiomyopathy 05/21/2018 Hypercholesteremia 05/21/2018 Heartburn 05/21/2018 Hypertension 05/21/2018 Iron deficiency anemia 05/21/2018 Iron deficiency 05/21/2018 Myelodysplastic syndrome, unspecified 05/21/2018 Chronic anemia 05/21/2018 DDD (degenerative disc disease), lumbar 11/04/2017 Trochanteric bursitis of both hips 08/28/2017 Pain of both hip joints 08/28/2017 Other disorders of lung 04/26/2017 Family History Medical History Relation Name Comments Cancer Father Hyperlipidemia Father Relation Name Status Comments Father Social History Date Tobacco Use Types Packs/Day Years Used Never Smoker Smokeless Tobacco: Never Used Drinks/Week oz/Week Comments Alcohol Use No Sex Assigned at Date Recorded Not on file Industry Job Start Date Occupation Not on file Not on file Not on file Travel End Travel History Travel Start No recent travel history available. Last Filed Vital Signs Not on file Plan of Treatment Health Maintenance Due Date Last Done Comments SHINGLES VACCINES (#1) 1989 65+ PNEUMOCOCCAL VACCINE 2004 (1 of 2 - PCV13) INFLUENZA VACCINE 10/09/2019 Results Not on fileafter 09/08/2018 Insurance Type Payer Benefit Subscriber ID Effective Phone Address Plan / Dates Group Medicare MEDICARE MEDICARE xxxxxxxxxx 2004-P [place], PART A AND resent [place] B xxxxxxxxx-xx 2004-P FOR LIFE resent 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
--- OUTSIDE RECORDS SUMMARY | 2019-10-08 04:55 | XMS REPORT | Continuity of Care Document ---
Author Author [facility] t Organization [facility] Address [address] [place] [address] Phone Unavailable Care Team Providers Care Tectonophysicist Name Role Phone PEGGY PRECIADO MD PCP PEGGY PRECIADO Attphys Unavailable Em LEVINE Attphys Unavailable SMITH CASTRO Attphys Unavailable Howard LUEVANO Attphys Unavailable Em Salazar Attphys Jocelyn Hu Attphys Em LEVINE Admphys Unavailable Payers Payer Name Policy Type Policy Number Effective Date Expiration Date Em Kirk Ppo [id number] 2015 00:00:00 [facility] Medicare A & B [id number] 2004 00:00:00 [facility] Problems Condition Name Condition Details Condition Category Status Onset Date Resolution Date Last Treatment Date Treating Clinician Comments Source Gluteal tendinitis of both buttocks Gluteal tendinitis of both b uttocks Disease Active 2018-05-21 00:00:00 Bayron crawford Anabaptism It band syndrome, left It band syndrome, left Disease Active 2018-05-21 00:00:[address] It band syndrome, right It band syndrome, right Disease Active 2018-05-21 00:00:[address] Anemia in chronic kidney disease Anemia in chronic kidney diseas e Disease Active 2018-05-21 00:00:00 Bayron Bergist Cardiomyopathy Cardiomyopathy Disease Active 2018-05-21 00:00:00 Jaciel Melendrez Hypercholesteremia Hypercholesteremia Disease Active 2018-05-21 00:00:0 0 Jaciel Melendrez Heartburn Heartburn Disease Active 2018-05-21 00:00:00 Jaciel Melendrez Hypertension Hypertension Disease Active 2018-05-21 00:00:00 Jaciel Melendrez Iron deficiency anemia Iron deficiency anemia Disease Active 2018-05-21 00:00:[address] Iron deficiency Iron deficiency Disease Active 2018-05-21 00:00:00 Jaciel Melendrez Myelodysplastic syndrome, unspecified Myelodysplastic syndro me, unspecified Disease Active 2018-05-21 00:00:00 Jaciel Melendrez Chronic anemia Chronic anemia Disease Active 2018-05-21 00:00:00 Jaciel Melendrez DDD (degenerative disc disease), lumbar DDD (degenerative di sc disease), lumbar Disease Active 2017-11-04 00:00:00 Jaciel Melendrez Trochanteric bursitis of both hips Trochanteric bursitis of both hips Disease Active 2017-08-28 00:00:00 Bayron Melendrez Pain of both hip joints Pain of both hip joints Disease Active 2017-08-28 00:00:[address] INFED 500MG /// CPT: J1750, 76168 /// DX INFED 500MG /// CPT: J1750, 17539 /// DX Active 06/30/2017 [facility] 2017-06-30 00:00:00 2017-07-08 10:02:00 M elisabet Mckenzie Other disorders of lung Other disorders of lung Disease Active 2017-04-26 00:00:[address] PROCRIT 40,000 UNITS WEEKLY X4, J0885, C PROCRIT 40,000 UNITS WEEKLY X4, J0885, C Active 04/02/2016 [facility] 2016-04-02 00:00:00 2016-04-16 10:22:00 [facility] PROCRIT 40,000 UNITS WEEKLY X4, J0885 PROCRIT 40,000 UNITS WEEKLY X4, J0885 Active 04/02/2016 [facility] 2016-04-02 00:00:00 2016-04-25 15:13:00 [facility] INFED 500 MG J1750, CPT-62781, D46.9, D6 INFED 500 MG J1750, CPT-62728, D46.9, D6 Active 02/28/2016 [facility] 2016-02-28 00:00:00 2016-04-25 09:12:00 [facility] D46.9 D46. 9 Active 01/26/2015 [facility] Active 2015-01-26 12:00:00 2015-02-03 10:22:00 Lemuel Mckenzie 518.89 ABNORMALITY OF LUNG 518 .89 ABNORMALITY OF LUNG Active 10/12/2013 [facility] Active 2013-10-12 00:00:00 2013-10-14 13:31:00 [facility] [place] Anemia Anemia Problem Active [facility] Chronic kidney disease CKD (chronic kidney disease) Problem Active [facility] Fall Fall Problem Active [facility] Fracture of neck of right femur Fracture of femoral neck, right Pro blem Active [facility] Conduction disorder of the heart (disorder) Conduction disorder of the heart (disorder) Resolved Problem 08/09[facility]2017 [facility]olved 2017-08-09 00:28:56 [facility] Incontinence of feces (finding) Incontinence of feces (finding) Resolved Problem 08/09/2017 [facility] 2017-08-09 00:28:56 [facility] [place] 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) Resolved Problem 08/09/2017 [facility] Resolved 2017-08-09 00:28:56 [facility] Ventricular tachycardia (disorder) Ventricular tachycardia (disorder) Resolved Problem 08/09/2017 ELIEL Daniela[facility] Problem Resolved 2017-08-09 00:28:56 [facility] viral(Confirmed) albert l(Confirmed) Resolved Problem 10/16/2013 [facility] Problem Resolved 2013-10-16 23:01:22 [facility] cardiomyopathy(Confirmed) card iomyopathy(Confirmed) Active Problem 10/16/2013 [facility] Problem Active 2013-10-16 23:0 1:22 [facility] cholesterol(Confirmed) chol esterol(Confirmed) Active Problem 10/16/2013 [facility] Problem Active 2013-10-16 23:01:2 2 [facility] heartburn(Confirmed) hear tburn(Confirmed) Active Problem 10/16/2013 [facility] Problem Active 2013-10-16 23:01:2 2 [facility] hypertension(Confirmed) hype rtension(Confirmed) Active Problem 10/16/2013 [facility] Problem Active 2013-10-16 23:01:2 2 [facility] iron deficiency(Confirmed) iro n deficiency(Confirmed) Active Problem 10/16/2013 [facility] Problem Active 2013-10-16 23:01:22 [facility] MYELODYSPLASTIC SYNDROME, UNSPECIFIED MYELODYSPLASTIC SYNDROME, UNSPECIFIED Active [facility] Diagnosis Active 2016-04-25 15:13:00 [facility] OTHER LUNG DISEASE NEC OTHE R LUNG DISEASE NEC Active [facility] Diagnosis Active 2013-10-14 13:31:00 elisabet Jonah ANEMIA IN CHRONIC KIDNEY DISEASE ANEMIA IN CHRONIC KIDNEY DISEASE Active [facility] Diagnosis Active 2016-04-25 09:12:00 [facility] IRON DEFICIENCY ANEMIA, UNSPECIFIED IRON DEFICIENCY ANEMIA, UNSPECIFIED Active [facility] Diagnosis Active 2016-04-16 10:22:00 [facility] Age related osteoporosis Age related osteoporosis Active Problem 09/23/2019 [facility] Problem Active 2019-09-23 02 :46:35 [facility] Primary generalized (osteo)arthritis Primary generalized (osteo)arthritis Active Problem 09/23/2019 [facility] Problem Active 2019-09-23 02:46:35 [facility] Vitamin D deficiency Whitney min D deficiency Active Problem 09/23/2019 [facility] Problem Active 2019-09-23 02:46:35 [facility] Encounter for long-term (current) drug use Encounter for long-term (current) drug use Active Diagnosis 08/31/2019 [facility] Diagnosis Active 2019-08-31 02:46:02 Lisa Mckenzie Other disorders of lung Othe r disorders of lung 04/26/2017 07/29/2017 DERECK Sharma Problem 2017-04-26 05:44:00 07-29 13:20:02 2017-07-29 13:20:02 [facility] Allergies, Adverse Reactions, Alerts Allergy Name Allergy Type Status Severity Reaction(s) Onset Date Inacti ve Date Treating Clinician Comments Source Thang. Thang. Active Info Not Available 2019-09-21 00:00:00 [facility] [place] Zolpidem Propensity to adverse reactions Active palp itation 2018-09-10 00:00:00 [facility] Adhesive Tape-Silicones Propensity to adverse reactions to drug Activ e 2016-12-08 00:00:00 [facility] odist codeine DA Active [place] 2016-12-08 00:00:00 [facility] adhesive tape DA Active [place] 2016-12-08 00:00:00 [facility] codeine codeine Active [facility] [place] Tape Tape Active [facility] H ermann Family History Family Member Diagnosis Comments Start Date Stop Date Source Natural father Cancer [facility] thodist Natural father Hyperlipidemia [place] [employer] Social History Social Habit Start Date Stop Date Quantity Comments Source Sex Assigned At Violette hardinbruce Melendrez Alcohol intake 2018-05-21 00:00:00 2018-05-21 00:00:00 Current non-drinker of alcohol (finding) Jaciel Melendrez Social History 2013-02-12 20:04:22 2013-02-12 20:04:22 [facility] Smoking Status Start Date Stop Date Source Never smoker Jaciel watson Medications Ordered Medication Name Filled Medication Name Start Date Stop Da te Current Medication? Ordering Clinician Indication Dosage Frequency Signature (SIG) Comments Components Source Aspirin 2019-09-23 02:46:35 Yes Shima Wiley 1 t ablet [facility] Levothyroxine Sodium 2019-09-23 02:46:35 Yes Shima Tony is 1 tablet in the morning on an empty stomach [facility] Calcium 1200 2019-09-23 02:46:35 Yes Shima Wiley 1 tablet with a meal [facility] Tylenol Arthritis Pain 2019-09-23 02:46:35 Yes Shima zamarripa 2 tablets as needed [facility] Simvastatin 2019-09-23 02:46:35 Yes Shima Wiley 1 tablet in the evening [facility] Amlodipine Besylate 2019-09-23 02:46:35 Yes Shima Wliey 1 tablet [facility] Lovaza 2019-09-23 02:46:35 Yes Shima Wiley 2 ca psules [facility] Glucosamine 2019-09-23 02:46:35 Yes Shima Wiley 2 capsule with a meal [facility] Zyrtec Allergy 2019-09-23 02:46:35 Yes Shima Wiley 1 tablet [facility] Sular 2019-09-23 02:46:35 Yes Shima Wiley 1 tablet 1 hour before or 2 hours after a meal [facility] Pacerone 2019-09-23 02:46:35 Yes Shima Wiley 1 tablet [facility] Premarin 2019-09-23 02:46:35 Yes Shima Wiley 1 tablet [facility] Nexium 2019-09-23 02:46:35 Yes Shima Wiley 1 ca psule [facility] Prolia 2019-09-23 02:46:35 Yes Shima Wiley as d irected [facility] Injectafer 2019-02-10 03:46:19 Yes Shima Wiley as directed [facility] lidocaine (LIDODERM) 5 % 2018-07-07 00:00:00 Yes Remove & Discard patch within 12 hours or as directed by MD Jaciel Melendrez simvastatin (ZOCOR) 10 MG tablet 2018-05-21 15:17:28 Yes 10mg QD Take 10 mg by mouth nightly. Jaciel Melendrez omega-3 acid ethyl esters (LOVAZA) 1 gram capsule 2018-05-21 15:17:28 Yes 1g Q.5D Take 1 g by mouth 2 (two) times a day. Jaciel Melendrez amLODIPine (NORVASC) 5 mg tablet 2018-05-21 15:17:28 Yes 5mg QD Take 5 mg by mouth daily. Jaciel Melendrez amIODarone (PACERONE) 200 MG tablet 2018-05-21 15:16:33 Yes 200mg QD Take 200 mg by mouth daily. Jaciel terrell levothyroxine (SYNTHROID, LEVOXYL) 75 mcg tablet 2018-05-21 15:16:33 Yes 75ug QD Take 75 mcg by mouth every morning. Jaciel Melendrez nisoldipine (SULAR) 20 MG 24 hr tablet 2018-05-21 15:16:33 Yes 17mg QD Take 17 mg by mouth daily. aJciel adler estrogens, conjugated, (PREMARIN) 0.3 MG tablet 2018-05-21 15:16 :33 Yes .3mg QD Take 0.3 mg by mouth daily. Take daily for 21 days then do not take for 7 days. Jaciel Melendrez aspirin (ECOTRIN) 81 MG enteric coated tablet 2018-05-21 15:16:3 3 Yes 81mg QD Take 81 mg by mouth daily. Arthur Melendrez acetaminophen (TYLENOL) 500 MG tablet 2018-05-21 15:16:33 Y es 650mg Q6H Take 650 mg by mouth every 6 (six) hours as needed for mild pain. Jaciel Melendrez calcium carbonate (TUMS) 200 mg calcium (500 mg) chewable ta blet 2018-05-21 15:16:33 Yes 1{tbl} QD Chew 1 tablet daily. Jaciel Melendrez esomeprazole (NexIUM) 20 MG capsule 2018-05-21 15:16:33 Yes 20mg QD Take 20 mg by mouth daily before breakfast. Arthur Melendrez mirabegron 25 mg tablet extended release 24 hr 2018-05-21 15:16: 33 Yes Take by mouth as needed. Violette Melendrez Acetaminophen With Codeine (Tylenol With Codeine #3 Tablet) 1 Each Tablet, 300 Mg Oral Acetaminophen With Codeine (Tylenol With Codeine #3 Tablet) 1 Each Tablet, 300 Mg Oral 2018-01-22 00:00:00 2018-02-11 00:00:00 No Girma Walker Facilities Clerk 300 Every 6 Hours as needed for Pain [facility] Amoxicillin/Potassium Clav (Augmentin 50 0-125 Tablet) 1 Each Tablet, 500 Mg Oral Amoxicillin/Potassium Clav (Augmentin 50 0-125 Tablet) 1 Each Tablet, 500 Mg Oral 2018-01-22 00:00:00 2018-02-11 00:00:00 No Tiago Walker Facilities Clerk [address] [facility] dexamethasone + Sodium Chloride 0.9% IV 47.5 mL 2017-07-22 14:30 :00 No Notes: PROTECT FROM LIGHT Me lizet Mckenzie iron dextran + Sodium Chloride 0.9% IV 490 mL 2017-07-22 14:30:0 0 No Notes: (Same as:DexFerrum) Non Formular y MEDICATION WASTE Product Size: 100 mg Product Wasted: ___ mg Me liz[facility] [place] famotidine 2017-07-22 14:30:00 No Notes: (S lita as: Pepcid) Lemuel Mckenzie Benadryl 2017-07-22 14:30:00 No Notes: ([facility] as: Benadryl) Lemuel Mckenzie 24 HR mirabegron 25 MG Extended Release Tablet [Myrbetriq] 2017-07-15 19:31:00 Yes 25 mg = 1 tab, PO, PRN, # 30 ta b, 5 Refill(s) Lemuel Mckenzie sodium chloride 0.9% INJ 2017-07-15 14:30:00 No 250 mL, PYXIS, ONCE, Start date: 07/15/17 9:30:00 CDT Memneha heaven Mckenzie famotidine 2017-07-15 14:30:00 No Notes: (S lita as: Pepcid) Lemuel Mckenzie Benadryl 2017-07-15 14:30:00 No Notes: ([facility] as: Benadryl) Lemuel Mckenzie iron dextran + Sodium Chloride 0.9% IV 490 mL 2017-07-15 14:30:0 0 Yes Notes: (Same as:DexFerrum) Non Formular y MEDICATION WASTE Product Size: 100 mg Product Wasted: ___ mg Me lizet [place] dexamethasone + Sodium Chloride 0.9% IV 47.5 mL 2017-07-15 14:30 :00 No Notes: PROTECT FROM LIGHT Me hinds [place] iron dextran + Sodium Chloride 0.9% IV 490 mL 2017-07-08 14:30:0 0 No Notes: (Same as:DexFerrum) Non Formular y MEDICATION WASTE Product Size: 100 mg Product Wasted: ___ mg Me morial [place] dexamethasone + Sodium Chloride 0.9% IV 47.5 mL 2017-07-08 14:30 :00 No 10 mg, 2.5 mL, Route: IVPB, Drug form: INJ, ONCALL, Start date: 07/08/17 9:30:00 CDT, Duration: 10 hr, Stop date: 07/08/17 19:29:00 CDT Lemuel Mckenzie Benadryl 2017-07-08 14:30:00 No Notes: ([facility] e as: Benadryl) Lemuel Mckenzie famotidine 2017-07-08 14:30:00 No Notes: (S lita as: Pepcid) Lemule Mckenzie Procrit 2016-04-16 15:30:00 No Notes: (Same as: Procrit) Procrit 20,000 unit/ml VL. For non-dialysis use in adult only. WASTE: F/P - Red; E - Red To be used in dialysis for children; Contains different preservative. Lemuel Mckenzie Procrit 2016-04-09 15:30:00 No Notes: (Same as: Procrit) epoetin madeline 99661 unit/1 ml VL. For non-dialysis use only. MEDICATION WASTE Product Size: 72138 unit Product Wasted: ___ unit Lemuel Mckenzie Pepcid 2016-04-09 14:00:00 No Notes: (Same as: Pepcid) Can be dilute in 5-10cc NS IVP: Slow IV push over at least 2 minutes. Lemuel Mckenzie Benadryl + sodium chloride 0.9% INJ 50 mL 2016-04-09 14:00:00 No Notes: (Same as: Benadryl) Lemuel ochoa dexamethasone + sodium chloride 0.9% INJ 50 mL 2016-04-09 14:00: 00 No Notes: PROTECT FROM LIGHT Joan collado [place] Sodium Chloride 0.9% IV 2016-04-09 14:00:00 No IV, 30 ml/hr, ONCALL, Start date: 04/09/16 8:00:00 ENERGY CONSERVATION ENGINEER, Duration: 12, 250 ml Lemuel Mckenzie Procrit 2016-04-09 14:00:00 No Notes: (Same as: Procrit) Procrit 20,000 unit/ml VL. For non-dialysis use in adult only. WASTE: F/P - Red; E - Red To be used in dialysis for children; Contains different preservative. Lemuel Mckenzie DexFerrum + sodium chloride 0.9% 500 ml INJ 490 mL 2016-03-11 4 15:00:00 No Notes: (Same as:DexFerrum) Non-Formulary PROTE CT FROM LIGHT [facility] Pepcid 2016-04-02 15:00:00 No Notes: (Same as: Pepcid) Can be dilute in 5-10cc NS IVP: Slow IV push over at least 2 minutes. [facility] [place] dexamethasone + sodium chloride 0.9% INJ 50 mL 2016-04-02 15:00: 00 No Notes: PROTECT FROM LIGHT [facility] Benadryl 2016-04-02 15:00:00 No Notes: (Giles e as: Benadryl) [facility] Sodium Chloride 0.9% IV 2016-04-02 15:00:00 No IV, 30 ml/hr, ONCALL, Start date: 04/02/16 9:00:00 ENERGY CONSERVATION ENGINEER, Duration: 8, 250 ml [facility] [place] DexFerrum + sodium chloride 0.9% 500 ml INJ 490 mL 2016-03-10 7 15:30:00 No Notes: (Same as:DexFerrum) Non-Formulary PROTE CT FROM LIGHT [facility] [place] Pepcid 2016-03-26 15:30:00 No Notes: (Same as: Pepcid) Can be dilute in 5-10cc NS IVP: Slow IV push over at least 2 minutes. [facility] [place] Benadryl + sodium chloride 0.9% INJ 50 mL 2016-03-26 15:30:00 No Notes: (Same as: Benadryl) [facility] + sodium chloride 0.9% INJ 50 mL 2016-03-26 15:30: 00 No Notes: PROTECT FROM LIGHT [facility] [place] Sodium Chloride 0.9% IV 2016-03-26 15:30:00 Yes IV, 30 ml/hr, ONCALL, Start date: 03/26/16 9:30:00 ENERGY CONSERVATION ENGINEER, Duration: 8, 250 ml [facility] Pepcid 2016-03-19 15:30:00 No Notes: (Same as: Pepcid) Can be dilute in 5-10cc NS IVP: Slow IV push over at least 2 minutes. [facility] [place] Benadryl + sodium chloride 0.9% INJ 50 mL 2016-03-19 15:30:00 No Notes: (Same as: Benadryl) [facility] dexamethasone + sodium chloride 0.9% INJ 50 mL 2016-03-19 15:30: 00 No Notes: PROTECT FROM LIGHT [facility] [place] DexFerrum + sodium chloride 0.9% 500 ml INJ 490 mL 2016-03-10 0 15:30:00 No Notes: (Same as:DexFerrum) Non-Formulary PROTE CT FROM LIGHT [facility] Sodium Chloride 0.9% IV 2016-03-18 22:00:00 Yes IV, 30 ml/hr, ONCALL, Start date: 03/18/16 16:00:00 ENERGY CONSERVATION ENGINEER, Duration: 8, 250 ml Lemuel Mckenzie Pepcid 2016-03-13 16:00:00 No Notes: (Same as: Pepcid) Can be dilute in 5-10cc NS IVP: Slow IV push over at least 2 minutes. Lemuel Mckenzie Sodium Chloride 0.9% IV 2016 16:00:00 No IV, 30 ml/hr, PRN, PRN Line Flush, Start date: 03/12/16 10:00:00 ENERGY CONSERVATION ENGINEER, Duration: 8, 250 ml Lemuel Mckenzie dexamethasone + sodium chloride 0.9% INJ 50 mL 2016 16:00: 00 No Notes: PROTECT FROM LIGHT [facility] [place] DexFerrum + sodium chloride 0.9% 500 ml INJ 490 mL 3 16:00:00 No Notes: (Same as:DexFerrum) Non-Formulary PROTE CT FROM LIGHT [facility] [place] Procrit 2016 16:00:00 No Notes: (Same as: Procrit) Procrit 20,000 unit/ml VL. For non-dialysis use in adult only. To be used in dialysis for children; Contains different preservative. [facility] [place] Benadryl + sodium chloride 0.9% INJ 50 mL 2016 16:00:00 No Notes: (Same as: Benadryl) [facility] Procrit 2015-02-20 15:00:00 No Notes: (Same as: Procrit) Procrit 20,000 unit/ml VL. For non-dialysis use in adult only. To be used in dialysis for children; Contains different preservative. [facility] [place] Procrit 2015-02-13 17:00:00 No Notes: (Same as: Procrit) Procrit 20,000 unit/ml VL. For non-dialysis use in adult only. To be used in dialysis for children; Contains different preservative. Lemuel Mckenzie Procrit 2015-02-06 15:00:00 No Notes: (Same as: Procrit) Procrit 20,000 unit/ml VL. For non-dialysis use in adult only. To be used in dialysis for children; Contains different preservative. [facility] epoetin madeline 2015-01-30 18:00:00 No Notes: (Same as: Procrit) Procrit 20,000 unit/ml VL. For non-dialysis use in adult only. To be used in dialysis for children; Contains different preservative. [facility] Amiodarone Hcl (Pacerone) 100 Mg Tablet Amiodarone Hcl (Pace hudson) 100 Mg Tablet Yes [facility] Amiodarone Hcl (Pacerone) 200 Mg Tablet Amiodarone Hcl (Pace uhdson) 200 Mg Tablet Yes [facility] Amlodipine Besylate 5 Mg Tablet Amlodipine Besylate 5 Mg Tablet Yes [address] [facility] Aspirin 325 Mg Tablet Aspirin 325 Mg Tablet Yes 325 Daily [facility] Calcium Calcium Yes 500 [facility] Esomeprazole Magnesium (Nexium) 40 Mg Capsule.dr Pal prazole Magnesium (Nexium) 40 Mg Capsule. Yes [facility] Estrogens Conjugated (Premarin) 0.625 Mg Tab Estrogens Conjugated (Premarin) 0.625 Mg Tab Yes .03 Daily [facility] Glucosamine Sulfate 2KCL (Glucosamine) 1,000 Mg Tablet Glucosamine Sulfate 2KCL (Glucosamine) 1,000 Mg Tablet Yes 1500 [facility] Levothyroxine Sodium 75 Mcg Tablet Levothyroxine Sodium 75 Mcg Tablet Yes 75 Daily [facility] Nisoldipine 17 Mg Tab.er.24h Nisoldipine 17 Mg Tab.er.24h Yes [facility] Ambler-3 Acid Ethyl Esters (Lovaza) 1 Gm Capsule Ambler- 3 Acid Ethyl Esters (Lovaza) 1 Gm Capsule Yes [facility] Simvastatin 20 Mg Tablet Simvastatin 20 Mg Tablet Yes 10 Today At 9:00PM [facility] Tylenol Arthritis Tylenol Arthritis Yes 650 [facility] Aspirin 81 Mg Tab.chew, Aspirin 81 Mg Tab.chew, 2018-09-14 00:00 :00 No [facility] Vital Signs Vital Name Observation Time Observation Value Comments Source Weight 2019-09-21 16:00:00 [facility] Height 2019-09-21 16:00:00 [facility] Temperature Oral (F) 2019-09-21 16:00:00 98.2 F [facility] [place] Heart Rate 2019-09-21 16:00:00 [facility] [place] Diastolic (mm Hg) 2019-09-21 16:00:00 [facility] [place] Systolic (mm Hg) 2019-09-21 16:00:00 [facility] Weight 2019-01-28 21:15:00 [facility] [place] Height 2019-01-28 21:15:00 [facility] Temperature Oral (F) 2019-01-28 21:15:00 97.8 F [facility] Heart Rate 2019-01-28 21:15:00 [facility] [place] Diastolic (mm Hg) 2019-01-28 21:15:00 [facility] Systolic (mm Hg) 2019-01-28 21:15:00 Pilo [facility] [place] Systolic (mm Hg) 2017-07-22 15:30:00 Pilo [facility] Diastolic (mm Hg) 2017-07-22 15:30:00 [facility] [place] Heart Rate 2017-07-22 15:30:00 [facility] Respitory Rate 2017-07-22 15:30:00 [facility] Temperature Oral (F) 2017-07-22 15:30:00 97.5 F [facility] Temperature Oral (F) 2017-07-08 15:00:00 97.7 F [facility] Respitory Rate 2017-07-08 15:00:00 [facility] [place] Systolic (mm Hg) 2017-07-08 15:00:00 Pilo [facility] [place] Diastolic (mm Hg) 2017-07-08 15:00:00 [facility] [place] Heart Rate 2017-07-08 15:00:00 [facility] [place] BMI Calculated 2017-07-07 16:35:00 [facility] Weight 2017-07-07 16:35:00 [facility] Height 2017-07-07 16:35:00 170 cm [facility] [place] Systolic (mm Hg) 2016-04-02 16:00:00 Pilo [facility] Diastolic (mm Hg) 2016-04-02 16:00:00 [facility] Heart Rate 2016-04-02 16:00:00 [facility] Respitory Rate 2016-04-02 16:00:00 [facility] Temperature Oral (F) 2016-04-02 16:00:00 98 F [facility] [place] Respitory Rate 2016-03-26 16:00:00 [facility] Temperature Oral (F) 2016-03-26 16:00:00 97.8 F [facility] [place] Heart Rate 2016-03-26 16:00:00 [facility] Systolic (mm Hg) 2016-03-26 16:00:00 Pilo [facility] [place] Diastolic (mm Hg) 2016-03-26 16:00:00 [facility] [place] Systolic (mm Hg) 2016-03-19 16:00:00 [facility]o [facility] [place] Diastolic (mm Hg) 2016-03-19 16:00:00 [facility] Respitory Rate 2016-03-19 16:00:00 [facility] Temperature Oral (F) 2016-03-19 16:00:00 98.1 F [facility] [place] Heart Rate 2016-03-19 16:00:00 [facility] Weight 2016-03-08 14:26:00 [facility] BMI Calculated 2016-03-08 14:26:00 [facility] [place] Height 2016-03-08 14:26:00 170.1 cm [facility] [place] Height 2015-01-30 17:06:00 170.18 cm [facility] [place] BMI Calculated 2015-01-30 17:06:00 [facility] Weight 2015-01-30 17:06:00 [facility] Procedures Procedure Date / Time Performed Performing Clinician [facility] e Computed tomography of brain without radiopaque contrast 201 11-14-02 00:00:00 ALAN AYALA [facility] Computed tomography of cervical spine without contrast 09-09 00:00:00 ALAN AYALA [facility] CT maxillofacial area wo contrast 2018-09-09 00:00:[address] [facility] Computed tomography of pelvis without contrast 2018-09-09 00 :00:00 ALAN AYALA [facility] DRAINAGE OF HEMATOMA/FLUID 2018-02-17 00:00:00 SMITH CASTRO [facility] DRAINAGE OF MOUTH LESION 2018-02-17 00:00:00 SMITH CASTRO [facility] Computed tomography of brain without radiopaque contrast 201 10-18-14 00:00:00 TIAGO WALKER [facility] Computed tomography of cervical spine without contrast 01-22 00:00:00 TIAGO WALKER [facility] CT maxillofacial area wo contrast 2018-01-22 00:00:00 MARU WALKER [facility] Rotator cuff repair 2009-03-10 06:00:00 [facility] [place] Hysterectomy 1974-03-10 06:00:00 [facility] Infusion<sup>1</sup> [facility] Plan of Care Planned Activity Planned Date Details Comments Source Future Scheduled Test 2019-10-09 00:00:00 INFLUENZA VACCINE [code = INFLUENZA VACCINE] [facility] Future Scheduled Test 2004 00:00:00 65+ PNEUMOCOCCAL V ACCINE (1 of 2 - PCV13) [code = 65+ PNEUMOCOCCAL VACCINE (1 of 2 - PCV13)] [facility] Future Scheduled Test 1989 00:00:00 SHINGLES VACCINES (#1) [code = SHINGLES VACCINES (#1)] [facility] Encounters Start Date/Time End Date/Time Encounter Type Admission Type [facility] Care Department Encounter ID Source 2019-09-21 11:00:00 2019-09-21 11:00:00 Outpatient Steven Manning MD [place] [id number] Tj Manning MD 2019-09-16 08:32:00 2019-09-16 08:32:00 Outpatient Steven Manning MD PA [id number] Tj Manning MD 2019-08-27 15:31:00 2019-08-27 15:31:00 Outpatient Steven Manning MD PA [id number] Tj Manning MD 2019-07-27 16:04:00 2019-07-27 16:04:00 Outpatient Steven Manning MD PA [id number] Tj Manning MD 2019-04-29 13:30:00 2019-04-29 13:30:00 Outpatient MD JACIEL Herbert MD PA [id number] Tj Manning MD 2019-02-26 16:28:00 2019-02-26 16:28:00 Outpatient Steven Manning MD PA [id number] Tj Manning MD 2019-01-28 17:42:00 2019-01-28 17:42:00 Outpatient MD JACIEL Herbert MD PA [id number] Tj Manning MD 2019-01-28 17:41:00 2019-01-28 17:41:00 Outpatient MD JACIEL Herbert MD PA [id number] Tj Manning MD 2019-01-28 15:15:00 2019-01-28 15:15:00 Outpatient Steven Manning MD PA [id number] Tj Manning MD 2018-09-09 15:41:00 2018-09-14 12:57:00 Discharged Inpatient 1 REGINA LEVINE [facility] [id number] [facility] 2018-02-17 07:50:00 2018-02-17 07:50:00 Registered Surgical Day Care [facility] [id number] [facility] 2018-01-22 09:49:00 2018-01-22 13:00:00 Departed Emergency Room 1 TRINITY LUEVANO [facility] [id number] [facility] 2017-07-08 10:00:00 2017-08-06 23:59:00 Outpatient Rhiannon Salazar [facility] [id number] 2017-04-22 10:43:00 2017-04-22 23:59:00 Outpatient Kirt Hu [facility] [id number] 2016-04-09 09:00:00 2016-05-08 23:59:00 Outpatient Rhiannon Salazar [facility] [id number] 2016 10:12:00 2016-04-10 23:59:00 Outpatient Rhiannon Salazar [facility] [id number] 2015-01-30 10:00:00 2015-02-28 23:59:00 Outpatient Rhiannon Salazar [facility] [id number] 2013-10-14 13:27:00 2013-10-14 23:59:00 Outpatient Kirt Hu [facility] [id number] Results Test Description Test Time Test Comments Results Result Comments Source US PELVIC (NON OB) BALLARD OR F/U 2019-09-17 13:56:00 [place] [address] Patient Name: DENNIS SCHNEIDER MR #: [id number] : 1940 Age/Sex: 79/F Req #: [id number] Adm Physician: Ordered by: PEGGY PRECIADO MD Report #: [id number] Location: Room/Bed: Procedure: [id number] US/US PELVIC (NON OB) BALLARD OR F/U Exam Date: 09/17/19 Exam Time: 1256 REPORT STATUS: Signed Renal ultrasound Comparison: None Clinical History: Chronic kidney disease Technique: Sonographic evaluation of the kidneys was performed. Multiple images were submitted for interpretation, using a low-frequency curved transducer. Right kidney: The kidney measures 9.2 x 4.8 x 3.5 cm. The cortical echogenicity is within normal limits. The cortex measures 1.1 cm. There is no evidence of a focal mass. There is no evidence of hydronephrosis. There is no evidence of a shadowing stone. There is no evidence of a cyst. There is no evidence of a perinephric fluid collection. Flow is visualized to the right kidney. Left kidney: The kidney measures 8.9 x 4.9 x 3.4 cm. The cortical echogenicity is slightly increased. The cortex measures 1.2 cm. There is no evidence of a focal mass. There is no evidence of hydronephrosis. There is no evidence of a shadowing stone. There is sonographic evidence of a simple cyst superiorly that measures 1.6 x 1.4 x 1.4 cm. There is no evidence of a perinephric fluid collection. Flow is visualized to the left kidney. Survey images of the bladder demonstrate no abnormality. Postvoid volume is 22.4 cc. Bilateral ureteral jets are seen. Impression: Small bilateral kidneys with no obstruction or mass. Likely medical renal disease. Signed by: Benito Pérez MD on 09/17/2019 2:00 PM Dictated By: BENITO PÉREZ MD 0850 Transcribed By: MAVIS on 09/20/19 0850 COPY TO: PEGGY PRECIADO MD RENAL RETROPERITONEAL COMP 2019-09-17 13:56:00 [place] [address] Patient Name: DENNIS SCHNEIDER MR #: [id number] : 1940 Age/Sex: 79/F Req #: [id number] Adm Physician: Ordered by: PEGGY PRECIADO MD Report #: [id number] Location: US Room/Bed: Procedure: [id number] US/US RENAL RETROPERITONEAL COMP Exam Date: 09/17/19 Exam Time: 1256 REPORT STATUS: Signed Renal ultrasound Comparison: None Clinical History: Chronic kidney disease Technique: Sonographic evaluation of the kidneys was performed. Multiple images were submitted for interpretation, using a low-frequency curved transducer. Right kidney: The kidney measures 9.2 x 4.8 x 3.5 cm. The cortical echogenicity is within normal limits. The cortex measures 1.1 cm. There is no evidence of a focal mass. There is no evidence of hydronephrosis. There is no evidence of a shadowing stone. There is no evidence of a cyst. There is no evidence of a perinephric fluid collection. Flow is visualized to the right kidney. Left kidney: The kidney measures 8.9 x 4.9 x 3.4 cm. The cortical echogenicity is slightly increased. The cortex measures 1.2 cm. There is no evidence of a focal mass. There is no evidence of hydronephrosis. There is no evidence of a shadowing stone. There is sonographic evidence of a simple cyst superiorly that measures 1.6 x 1.4 x 1.4 cm. There is no evidence of a perinephric fluid collection. Flow is visualized to the left kidney. Survey images of the bladder demonstrate no abnormality. Postvoid volume is 22.4 cc. Bilateral ureteral jets are seen. Impression: Small bilateral kidneys with no obstruction or mass. Likely medical renal disease. Signed by: Benito Pérez MD on 09/17/2019 2:00 PM Dictated By: BENITO PÉREZ MD Transcribed By: MAVIS on 09/20/1950 COPY TO: PEGGY PRECIADO MD ABDOMEN 2 VIEW 2019-09-11 08:00:00 [place] [address] Patient Name: DENNIS SCHNEIDER MR #: [id number] : 1940 Age/Sex: 79/F Req #: [id number] Adm Physician: REGINA LEVINE MD Ordered by: NOEMI STROUD MD Report #: [id number] Location: MED/SURG2 Room/Bed: [facility] Procedure: DX/ABDOMEN 2 VIEW Exam Date: 09/11/19 Exam Time: 729 REPORT STATUS: Signed EXAM: Abdomen 2 Views INDICATION: small bowel obstruction [id number] COMPARISON: KUB 09/10/[address] abdomen pelvis 09/09/2019 FINDINGS: Lines/tubes: None. Moderate amount of stool in the colon. Decreased dilatation of the small bowel. No renal calculi. No abnormal soft tissue masses. Advanced degenerative changes in the lumbar spine and pelvis. Surgical screws overlying the right femoral head. IMPRESSION: Improving small bowel obstruction. Signed by: Dr. Leola Camarillo M.D. on 09/11/2019 8:03 AM Dictated By: LEOLA CAMARILLO MD 2 Transcribed By: MAVIS on 09/11/19802 COPY TO: NOEMI STROUD MD ABDOMEN-1VIEW (KUB) 2019-09-10 07:33:00 [place] [address] Patient Name: DENNIS SCHNEIDER MR #: [id number] : 1940 Age/Sex: 79/F Req #: [id number] Adm Physician: REGINA LEVINE MD Ordered by: REGINA LEVINE MD Report #: [id number] Location: MED/SURG2 Room/Bed: [facility] Procedure: [id number] DX/ABDOMEN-1VIEW (KUB) Exam Date: 09/10/19 Exam Time: 619 REPORT STATUS: Signed EXAM: Abdomen 1 Views INDICATION: SBO [id number] COMPARISON: CT abdomen pelvis 09/09/2019 FINDINGS: Lines/tubes: None. Mild amount of stool in the colon. Persistent moderate distention of the small bowel related to small bowel obstruction. No renal calculi. No abnormal soft tissue masses. Moderate degenerative changes in the lumbar spine and pelvis. Surgical screws overlying the right femoral head. IMPRESSION: Persistent small bowel obstruction with similar appearance of the bowel dilatation. Signed by: Dr. Leola Camarillo M.D. on 09/10/2019 7:35 AM Dictated By: LEOLA CAMARILLO MD 4 Transcribed By: MAVIS on 09/10/19734 COPY TO: REGINA LEVINE MD CT ABDOMEN/PELVIS WO 2019-09-09 15:39:00 [place] [address] Patient Name: DENNIS SCHNEIDER MR #: [id number] : 1940 Age/Sex: 79/F Req #: [id number] Adm Physician: REGINA LEVINE MD Ordered by: BRIAN MENA DO Report #: [id number] Location: MED/SURG2 Room/Bed: [facility] Procedure: [id number] CT/CT ABDOMEN/PELVIS WO Exam Date: 09/09/19 Exam Time: 1511 REPORT STATUS: Signed EXAM: CT Abdomen and Pelvis WITHOUT intravenous contrast INDICATION: Abdominal pain COMPARISON: None. TECHNIQUE: Abdomen and pelvis were scanned utilizing a multidetector helical scanner from the lung base to the pubic symphysis without administration of IV contrast. Coronal and sagittal reformations were obtained. IV CONTRAST: None ORAL CONTRAST: Water COMPLICATIONS: None RADIATION DOSE: Total DLP: 536 mGy*cm Dose modulation, iterative reconstruction, and/or weight based adjustment of the mA/kV was utilized to reduce the radiation dose to as low as reasonably achievable. FINDINGS: LOWER THORAX: Normal. HEPATOBILIARY: Right and left liver hypodense lesions measure up to 2.9 cm and most likely represent cysts. Vicariously secreted contrast material in the gallbladder, likely related to prior IV contrast administration. SPLEEN: No splenomegaly. PANCREAS: No focal masses or ductal dilatation. ADRENALS: No adrenal nodules. KIDNEYS/URETERS: No hydronephrosis or renal calculi. 1.4 cm left upper pole renal cyst. PELVIC ORGANS/BLADDER: Unremarkable. PERITONEUM / RETROPERITONEUM: Trace free fluid in the pelvis. No free air. LYMPH NODES: Enlarged right inguinal lymph nodes measure up to 3.4 x 2.0 cm. VESSELS: Moderate atherosclerotic calcifications of the nonaneurysmal abdominal aorta and major branches. GI TRACT: Numerous loops of distended fluid-filled small bowel with air-fluid levels which measure up to 3.7 cm maximum diameter. Transition point appears to be in the pelvis. Diverticulosis without CT evidence of diverticulitis. BONES AND SOFT TISSUES: No acute osseous injury. Degenerative changes of the visualized spine. No suspicious lytic or blastic lesions. IMPRESSION: Small bowel obstruction with dilated loops measuring up to 3.7 cm. Transition point appears to be in the pelvis. Diverticulosis without CT evidence of diverticulitis. Right inguinal lymphadenopathy. Signed by: Lu Solis MD on 09/09/2019 3:53 PM Dictated By: LU SOLIS MD 3988 Transcribed By: MAVIS on 09/09/19 1553 COPY TO: BRIAN MENA DO CHEST SINGLE (PORTABLE) 2019-09-09 11:36:00 [facility] [address] [place] [address] Patient Name: DENNIS SCHNEIDER MR #: [id number] : 1940 Age/Sex: 79/F Req #: [id number] Adm Physician: Ordered by: BRIAN MENA DO Report #: [id number] Location: ER Room/Bed: Procedure: [id number] DX/CHEST SINGLE (PORTABLE) Exam Date: 09/09/19 Exam Time: 1045 REPORT STATUS: Signed EXAMINATION: CHEST SINGLE (PORTABLE) INDICATION: Abdominal pain COMPARISON: Chest radiograph 02/11/2018 FINDINGS: LINES/TUBES:EKG leads overlie the chest. LUNGS:The lungs are hyperinflated. Emphysematous changes. No focal consolidation or pulmonary edema. PLEURA:No pleural effusion or pneumothorax. MEDIASTINUM:The cardiomediastinal silhouette appears normal in size and shape. Atherosclerotic calcifications of the thoracic aorta. BONES/SOFT TISSUES:No acute osseous injury. ABDOMEN:No free air under the diaphragm. IMPRESSION: Hyperinflated lungs with emphysematous changes. No focal pneumonia or pulmonary edema. Signed by: Lu Solis MD on 09/09/2019 11:37 AM Dictated By: LU SOLIS MD 1137 Transcribed By: MAVIS on 09/09/19 1137 COPY TO: BRIAN MENA DO Sodium Level 2018-09-14 07:12:00 Test Item Sodium Level (test code = 2951-2) 141 136-145 [facility] Pyzgd0663-52-03 07:12:00* Test Item Value Reference Range Interpretation Comments Potassium Level (test code = 2823-3) 4.1 3.5-5.1 [facility] HospitalChloride Ybrgf5648-33-66 07:12:00* Test Item Value Reference Range Interpretation Comments Chloride Level (test code = 2075-0) 108 98-107 H [facility] HospitalCarbon Dioxide Thhxf2714-45-97 07:12:00* Test Item Value Reference Range Interpretation Comments Carbon Dioxide Level (test code = 2028-9) 25 22-29 [facility] HospitalAnion Sdb9936-45-04 07:12:00* Test Item Value Reference Range Interpretation Comments Anion Gap (test code = 31633-0) 12.1 8-16 [facility] HospitalBlood Urea Oorttrkm6124-12-76 07:12:00* Test Item Value Reference Range Interpretation Comments Blood Urea Nitrogen (test code = 3094-0) 13 7-26 [facility] HospitalCreatinine2019-07-08 07:12:00* Test Item Value Reference Range Interpretation Comments Creatinine (test code = 2160-0) 0.84 0.57-1.11 [facility] HospitalBUN/Creatinine Zzpqb1212-75-07 07:12:00* Test Item Value Reference Range Interpretation Comments BUN/Creatinine Ratio (test code = 3097-3) 15 6-25 [facility] HospitalEstimat Glomerular Filtration Rate 2018-09-14 07:12:00* Test Item Value Reference Range Interpretation Comments Estimat Glomerular Filtration Rate (test code = 593284191) > 60 >60 Ranges were taken from the National Kidney Disease Education Program and the [facility] [employer] literature.Reference ranges:60 or greater: Oeshkx71-85 ( for 3 consecutive months): Chronic kidney disease 15 or less: Kidney failureMethodist Children's HospitalGlucose Sojkl0813-26-18 07:12:00* Test Item Value Reference Range Interpretation Comments Glucose Level (test code = XKG8661) 88 74-118 [facility] HospitalCalcium Grfxg0945-98-48 07:12:00* Test Item Value Reference Range Interpretation Comments Calcium Level (test code = 07964-9) 9.1 8.4-10.2 [facility] HospitalWhite Blood Cbpdy8207-52-94 06:57:00* Test Item Value Reference Range Interpretation Comments White Blood Count (test code = 6690-2) 6.46 4.8-10.8 [facility] HospitalRed Blood Yvuch2586-25-97 06:57:00* Test Item Value Reference Range Interpretation Comments Red Blood Count (test code = 789-8) 2.41 3.6-5.1 L [facility] HospitalHemoglobin2019-07-08 06:57:00* Test Item Value Reference Range Interpretation Comments Hemoglobin (test code = 61594-8) 7.3 12.0-16.0 L [facility] HospitalHematocrit2019-07-08 06:57:00* Test Item Value Reference Range Interpretation Comments Hematocrit (test code = 4544-3) 22.2 34.2-44.1 L Results called to BECKY VELARDE at 0655 on 09/14/18 by Mauri Hu. RB OK.[facility] HospitalMean Corpuscular Ykknht9198-13-70 06:57:00* Test Item Value Reference Range Interpretation Comments Mean Corpuscular Volume (test code = 787-2) 92.1 81-99 [facility] HospitalMean Corpuscular Bdvgslsqmw8129-64-33 06:57:00* Test Item Value Reference Range Interpretation Comments Mean Corpuscular Hemoglobin (test code = 785-6) 30.3 28-32 [facility] HospitalMean Corpuscular Hemoglobin Concent 2018-09-14 06:57:00* Test Item Value Reference Range Interpretation Comments Mean Corpuscular Hemoglobin Concent (test code = 786-4) 32.9 31-35 [facility] HospitalRed Cell Distribution Xsdwx5948-91-97 06:57:00* Test Item Value Reference Range Interpretation Comments Red Cell Distribution Width (test code = 02607-4) 15.2 11.7 -14.4 H [facility] HospitalPlatelet Clmli5707-03-30 06:57:00* Test Item Value Reference Range Interpretation Comments Platelet Count (test code = 777-3) 289 140-360 [facility] HospitalNeutrophils (%) (Auto)2018-09-14 06:57:00 * Test Item Value Reference Range Interpretation Comments Neutrophils (%) (Auto) (test code = 18504-1) 69.2 38.7-80.0 [facility] HospitalLymphocytes (%) (Auto)2018-09-14 06:57:00 * Test Item Value Reference Range Interpretation Comments Lymphocytes (%) (Auto) (test code = 736-9) 15.6 18.0-39.1 L [facility] HospitalMonocytes (%) (Auto)2018-09-14 06:57:00* Test Item Value Reference Range Interpretation Comments Monocytes (%) (Auto) (test code = 5905-5) 9.0 4.4-11.3 [facility] HospitalEosinophils (%) (Auto)2018-09-14 06:57:00 * Test Item Value Reference Range Interpretation Comments Eosinophils (%) (Auto) (test code = 713-8) 5.1 0.0-6.0 [facility] HospitalBasophils (%) (Auto)2018-09-14 06:57:00* Test Item Value Reference Range Interpretation Comments Basophils (%) (Auto) (test code = 706-2) 0.6 0.0-1.0 [facility] HospitalIM GRANULOCYTES %2018-09-14 06:57:00* Test Item Value Reference Range Interpretation Comments IM GRANULOCYTES % (test code = IM GRANULOCYTES %) 0.5 0.0- 1.0 [facility] HospitalNeutrophils # (Auto)2018-09-14 06:57:00* Test Item Value Reference Range Interpretation Comments Neutrophils # (Auto) (test code = 751-8) 4.5 2.1-6.9 [facility] HospitalLymphocytes # (Auto)2018-09-14 06:57:00* Test Item Value Reference Range Interpretation Comments Lymphocytes # (Auto) (test code = 28258-3) 1.0 1.0-3.2 [facility] HospitalMonocytes # (Auto)2018-09-14 06:57:00* Test Item Value Reference Range Interpretation Comments Monocytes # (Auto) (test code = 742-7) 0.6 0.2-0.8 [facility] HospitalEosinophils # (Auto)2018-09-14 06:57:00* Test Item Value Reference Range Interpretation Comments Eosinophils # (Auto) (test code = 711-2) 0.3 0.0-0.4 [facility] HospitalBasophils # (Auto)2018-09-14 06:57:00* Test Item Value Reference Range Interpretation Comments Basophils # (Auto) (test code = 704-7) 0.0 0.0-0.1 [facility] HospitalAbsolute Immature Granulocyte (auto 2018-09-14 06:57:00* Test Item Value Reference Range Interpretation Comments Absolute Immature Granulocyte (auto (binh t code = Absolute Immature Granulocyte (auto) 0.03 0-0.1 [facility] HospitalCreatine Kinase EW5725-69-22 14:33:00* Test Item Value Reference Range Interpretation Comments Creatine Kinase MB (test code = 76427-1) 3.30 0-5.0 [facility] HospitalTroponin P8196-65-59 14:33:00* Test Item Value Reference Range Interpretation Comments Troponin I (test code = QFF7682) 0.013 0-0.300 [facility] HospitalCreatine Dqadyn4153-95-80 14:21:00* Test Item Value Reference Range Interpretation Comments Creatine Kinase (test code = 2157-6) 89 29-168 [facility] HospitalTotal Jgqglkkhb7019-58-30 05:55:00* Test Item Value Reference Range Interpretation Comments Total Bilirubin (test code = 1975-2) 0.7 0.2-1.2 [facility] HospitalAspartate Amino Transf (AST/SGOT) 2018-09-10 05:55:00* Test Item Value Reference Range Interpretation Comments Aspartate Amino Transf (AST/SGOT) (test code = Aspartate Amino Transf (AST/SGOT)) 20 5-34 [facility] HospitalAlanine Aminotransferase (ALT/SGPT) 2018-09-10 05:55:00* Test Item Value Reference Range Interpretation Comments Alanine Aminotransferase (ALT/SGPT) (test code = 1742-6) 12 0-55 [facility] HospitalTotal Wqakirn4694-56-39 05:55:00* Test Item Value Reference Range Interpretation Comments Total Protein (test code = 2885-2) 5.2 6.5-8.1 L [facility] HospitalAlbumin2019-07-04 05:55:00* Test Item Value Reference Range Interpretation Comments Albumin (test code = 1751-7) 2.7 3.5-5.0 L [facility] HospitalGlobulin2019-07-04 05:55:00* Test Item Value Reference Range Interpretation Comments Globulin (test code = 42869-7) 2.5 2.3-3.5 [facility] HospitalAlbumin/Globulin Diddc6817-26-89 05:55:00 * Test Item Value Reference Range Interpretation Comments Albumin/Globulin Ratio (test code = 1759-0) 1.1 0.8-2.0 [facility] HospitalAlkaline Sowtrrkdmsn3161-10-66 05:55:00* Test Item Value Reference Range Interpretation Comments Alkaline Phosphatase (test code = 6768-6) 38 40-150 L [facility] HospitalFEMUR ONE VIEW SVFGO2052-76-15 17:05:00 [facility] [address] [place] [address] Patient Name: DENNIS SCHNEIDER MR #: [id number] : 05/1940 Age/Sex: 78/F Req #: [id number] Adm Physician: REGINA LEVINE MD Ordered by: NUVIA ORTIZ NP Report #: [id number] Location: MED/SURG2 Room/Bed: [facility] Procedure: [id number] DX/FEMUR ONE VIEW RIGHT Exam Date: Exam Time: REPORT STATUS: Signed Exam: Right femur portable 1 view History: Fall Comparison: <None.> Findings: Single cross table lateral projection of the right femur is s everely limited due to portable technique and overlying structures. No displac ed fracture or dislocation. Impression: No displaced fracture or disl ocation. Signed by: Lu Solis MD on 09/09/2018 5:07 PM Dictate d By: LU SOLIS MD 06 T ranscribed By: MAVIS on 09/09/181706 COPY TO: NUVIA ORTIZ RECRUITMENT CONSULTANT CT PELVIS MN6639-12-21 15:12:00 [place] [address] Patient Name: DENNIS SCHNEIDER MR #: [id number] : 1940 Age/Sex: 78/F Req #: [id number] Adm Physician: Ordered by: ALAN AYALA MD Report #: [id number] Location: ER Room/Bed: Procedure: [address] CT/CT PELVIS WO Exam Date: 09/09/18 Exam Time: 141 0 REPORT STATUS: Signed PROCEDUR E: CT PELVIS WITHOUT CONTRAST COMPARISON: None. INDICATIONS: f all TECHNIQUE: Helical axial CT images of the pelvis were obtained witho ut intravenous contrast. Coronal and sagittal reformatted images [facility]. FINDINGS: PELVIC NODES: No pelvic sidewall or low er retroperitoneal lymphadenopathy. PELVIC ORGANS: Urinary bladder is unr emarkable. Uterus is presumably been removed. No adnexal mass. The large haylee l is notable for multiple sigmoid diverticula without wall thickening or jaleesa cent inflammatory change. The appendix is not definitively identified. No rig ht lower quadrant inflammation. Normal caliber small bowel loops within the pelvis. Extensive atherosclerotic calcification of the visualized iliac art erial systems. BONES: Diffuse osteopenia. Suspected nondisplaced fracture of the right femoral neck (series 5, image 68). Degenerative disc changes are w ith scoliotic curvature and facet arthropathy of the lumbar spine. Symmetr ic degenerative arthrosis of the hips. Nonaggressive appearing sclerotic focu s in the left acetabular roof may represent an osteoma. Soft tissues: Lobulate d, non-enhancing fluid collection in the right inguinal region which may refl ect a seroma. Surgical geovanni adjacent to the right and left anterior acetab devorah. Partially visualized 6.7 cm soft tissue hematoma adjacent to the right g reater trochanter. Calcifications at the adjacent myotendinous junctions bila terally. CONCLUSION: Large soft tissue contusion/hematoma adjacen t to the proximal right femur with an underlying nondisplaced fracture of the femoral neck. Background diffuse osteopenia. Additional findings inclu de atherosclerotic vascular disease, large bowel diverticulosis without diver ticulitis, and a small right inguinal nonenhancing fluid collection, likely a seroma. Dictated by: Noemi Roberts M.D. on 09/09/2018 at 15:12 Elec tronically approved by: Noemi Roberts M.D. on 09/09/2018 at 15:12 D ictated By: NOEMI ROBERTS MD 1512 COPY TO: ALAN AYALA MD CT [facility] HR1996-00-69 14:53:00 [place] [address] Patient Name: DENNIS SCHNEIDER MR #: [id number] : 1940 Age/Sex: 78[id number] Req #: [id number] [facility] [place] Physician: Ordered by: ALAN AYALA MD Report #: [id number] Location: ER Room/Bed: Procedure: [id number]/CT MAXIO FAC/PARANAS WO Exam Date: 09/09/18 Alana reddy Time: 1410 REPORT STATUS: Signed EXAMINATION: Head, maxillofacial and cervical spine CT without contrast. HISTORY: Status post fall, trauma, head and face pain COMPARISON: Head CT 1 03/24/2017 TECHNIQUE: Multidetector axial images were obtained without contrast from the foramen magnum to the vertex and over the face and cervical spine. T he images were reconstructed using brain and bone algorithms. Thin section br ain images were reformatted into coronal and sagittal planes. Dose modulatio n, iterative reconstruction, and/or weight based adjustment of the mA/kV was u tilized to reduce the radiation dose to as low as reasonably achievable. Head CT findings: Skull: No lytic or blastic lesions. No fractures. Parenchyma: Persistent minimal chronic microvascular ischemic changes. No mass, hemorrhage or CT evidence of acute vascular insult. Brain volume: Normal for age. Ventricles: No hydrocephalus or displacement. Arteries: No density suggestive of thrombus. Dural sinuses: No abnormal density. Extra-axial spaces: No abnormal density. Foramen magnum : No mass, Chiari malformation, or basilar invagination. Sella: No obvio us mass. Paranasal/mastoid sinuses: Imaged portions unremarkable. Face CT findings: Bones: No acute displaced facial fractures . Again not ed degenerative changes of the right TMJ. Facial soft tissues: Prominen t premandibular/symphyseal and parasymphyseal regions soft tissue swelling and hematoma. Interval resolution of previously seen left premaxillary soft tissu es hematoma. Orbits contents: Replacement lenses likely from prior catara ct surgery Paranasal sinuses and drainage pathways: Mucosal inflammatory thickening and partial opacification with bubbling appearing material the left sphenoid sinus. Prominent mucosal inflammatory thickening and partial opacifi cation of the left maxillary sinus with few tiny calcifications, as well as thickened/sclerotic wells related to chronic process.. Nasal septum and nasal cavities: Mild right posterior deviation with small bone spur Luma tomic variations: No significant anatomic variations. Teeth: No acute a bnormality of the visualized teeth. Cervical spine CT: Fractures: None. Soft tissue injuries: None. Atlantoaxial articulation: Intact with moderate degenerative changes. Unchanged mild asymmetry of the lateral atlantal dental intervals which may be due to advanced degenerative changes and chronic comp ression of the left lateral mass of C1. Alignment: Straightened cervical curvature. Approximately 3 mm anterolisthesis of C4 on C5 and 4 mm anterolist hesis of C6 on C7 and change compared to prior study. Cervicomedullary ju nction: No abnormalities. The foramen magnum is patent. Soft tissues: No gross acute abnormalities. Vertebrae: No fractures, infection or neoplasm. Degenerative changes: Moderate degenerative changes at the atlantodental, left C1-C2 lateral mass and right atlantooccipital articulations Multile toby disc degeneration, moderate from C2 to C4 and severe from C4 to C7. Pradeep listhesis of C4 on C5 with associated uncovered disc/disc osteophyte complex r esults in mild canal stenosis. Mild canal stenosis at C5-C6 due to a disc oste ophyte complex measuring degrees of multilevel moderate to severe facet arthro sis. The left C2-C3 and right C3-C4 facets are fused. Multilevel uncovertebral facet arthrosis result in multilevel foraminal stenosis (mild right at C3-C4 moderate left and mild right at C4-C5, moderate bilaterally at C5-C6 in mild r ight at C6-C7). Incidental findings: Mild scarring at the lung apices. Atherosclerotic calcifications in the carotid siphons. Mild chronic inflammato ry changes at the left mastoid tip. IMPRESSION: Head CT: 1. No a cute traumatic intracranial abnormality, particularly no hemorrhage. 2. Persi stent mild chronic microvascular ischemic changes. Face CT: 1. Large ryder andibular/symphyseal region soft tissue swelling and hematoma. 2. No acute fac ial fractures. 3. Chronic inflammatory opacification of the left maxillary sin us, unchanged compared to CT of 01/22/2018. 4. New partial opacification of the left sphenoid sinus. Cervical spine CT: 1. No acute cervical spine f ractures or dislocations. 2. Unchanged advanced degenerative changes compared to CT of 01/22/2018. 3. Note is made that to post traumatic spinal cord, vas cular or ligamentous injury cannot fully be assessed with CT. Signed by: Dr. Wen Bond M.D. on 09/09/2018 3:21 PM Dictated By: WEN BOND MD El ectronically Signed By: WEN BOND MD on 09/09/18 1521 Transcribed By: MAVIS on 09/09/18 1521 COPY TO: ALAN AYALA MD CT CERVICAL SPINE WO 2018-09-09 14:53:00 [place] [address] Patient Name: DENNIS SCHNEIDER MR #: [id number] : 1940 Age/Sex: 78/F Req #: [id number] Adm Physician: Ordered by: ALAN AYALA MD Report #: [id number] Location: ER Room/Bed: Procedure: 0703-[address]/CT CERVICAL SPINE WO Exam Date: 09/09/18 Exam T lynette: 1410 REPORT STATUS: Signed EXAMINATION: Head, maxillofacial and cervical spine CT without contrast. HISTORY: Status post fall, trauma, head and face pain COMPARISON: Head CT 01/08 TECHNIQUE: Multidetector axial images were obtained without contrast fr om the foramen magnum to the vertex and over the face and cervical spine. The images were reconstructed using brain and bone algorithms. Thin section brain images were reformatted into coronal and sagittal planes. Dose modulation, iterative reconstruction, and/or weight based adjustment of the mA/kV was util ized to reduce the radiation dose to as low as reasonably achievable. Hea d CT findings: Skull: No lytic or blastic lesions. No fractures. Parenchyma: Persistent minimal chronic microvascular ischemic changes. No mas s, hemorrhage or CT evidence of acute vascular insult. Brain volume: No rmal for age. Ventricles: No hydrocephalus or displacement. Art eries: No density suggestive of thrombus. Dural sinuses: No abnormal den sity. Extra-axial spaces: No abnormal density. Foramen magnum: N o mass, Chiari malformation, or basilar invagination. Sella: No obvious mass. Paranasal/mastoid sinuses: Imaged portions unremarkable. Fa ce CT findings: Bones: No acute displaced facial fractures . Again noted degenerative changes of the right TMJ. Facial soft tissues: Prominent p remandibular/symphyseal and parasymphyseal regions soft tissue swelling and he matoma. Interval resolution of previously seen left premaxillary soft tissues hematoma. Orbits contents: Replacement lenses likely from prior cataract surgery Paranasal sinuses and drainage pathways: Mucosal inflammatory thi ckening and partial opacification with bubbling appearing material the left sp henoid sinus. Prominent mucosal inflammatory thickening and partial opacificat ion of the left maxillary sinus with few tiny calcifications, as well as thi ckened/sclerotic wells related to chronic process.. Nasal septum and juan c al cavities: Mild right posterior deviation with small bone spur Anatom ic variations: No significant anatomic variations. Teeth: No acute abno rmality of the visualized teeth. Cervical spine CT: Fractures: None. So ft tissue injuries: None. Atlantoaxial articulation: Intact with moderate d egenerative changes. Unchanged mild asymmetry of the lateral atlantal dental i ntervals which may be due to advanced degenerative changes and chronic zulema scott of the left lateral mass of C1. Alignment: Straightened cervical cur vature. Approximately 3 mm anterolisthesis of C4 on C5 and 4 mm anterolisthes is of C6 on C7 and change compared to prior study. Cervicomedullary junct ion: No abnormalities. The foramen magnum is patent. Soft tissues: No gross ac jonathan abnormalities. Vertebrae: No fractures, infection or neoplasm. Degenerative changes: Moderate degenerative changes at the atlantodental, le ft C1-C2 lateral mass and right atlantooccipital articulations Multilevel disc degeneration, moderate from C2 to C4 and severe from C4 to C7. Anterolis thesis of C4 on C5 with associated uncovered disc/disc osteophyte complex resu lts in mild canal stenosis. Mild canal stenosis at C5-C6 due to a disc osteoph yte complex measuring degrees of multilevel moderate to severe facet arthrosis . The left C2-C3 and right C3-C4 facets are fused. Multilevel uncovertebral fa cet arthrosis result in multilevel foraminal stenosis (mild right at C3-C4 mod erate left and mild right at C4-C5, moderate bilaterally at C5-C6 in mild righ t at C6-C7). Incidental findings: Mild scarring at the lung apices. Ath erosclerotic calcifications in the carotid siphons. Mild chronic inflammatory changes at the left mastoid tip. IMPRESSION: Head CT: 1. No acut e traumatic intracranial abnormality, particularly no hemorrhage. 2. Persiste nt mild chronic microvascular ischemic changes. Face CT: 1. Large premand ibular/symphyseal region soft tissue swelling and hematoma. 2. No acute facial fractures. 3. Chronic inflammatory opacification of the left maxillary sinus, unchanged compared to CT of 01/22/2018. 4. New partial opacification of the left sphenoid sinus. Cervical spine CT: 1. No acute cervical spine frac tures or dislocations. 2. Unchanged advanced degenerative changes compared to CT of 01/22/2018. 3. Note is made that to post traumatic spinal cord, vascul ar or ligamentous injury cannot fully be assessed with CT. Signed by: Dr. Wen Bond M.D. on 09/09/2018 3:21 PM Dictated By: WEN BOND MD Elect ronically Signed By: WEN BOND MD on 09/09/18 1521 Transcribed By: MAVIS on 09/09/18 1521 COPY TO: ALAN AYALA MD CT BRAIN [id number] 14:53:00 [place] [address] Patient Name: DENNIS SCHNEIDER MR #: [id number] : 1940 Age/Sex: 78/F Req #: [id number] Adm Physician: Ordered by: ALAN AYALA MD Report #: [id number] Location: Room/Bed: Procedure: 0703-[address]/CT BRAIN WO Exam Date: 09/09/18 Exam Time: 1410 REPORT STATUS: Signed EXAMINATI ON: Head, maxillofacial and cervical spine CT without contrast. HISTORY: Status post fall, trauma, head and face pain COMPARISON: Head CT 01/22/2018 TECHNIQUE: Multidetector axial images were obtained without contrast from the foramen magnum to the vertex and over the face and cervical spine. The images were reconstructed using brain and bone algorithms. Thin section brain images were reformatted into coronal and sagittal planes. Dose modulation, iterative reconstruction, and/or weight based adjustment of the mA/kV was utilized to r educe the radiation dose to as low as reasonably achievable. Head CT find ings: Skull: No lytic or blastic lesions. No fractures. Parenchy ma: Persistent minimal chronic microvascular ischemic changes. No mass, hemorr yovany or CT evidence of acute vascular insult. Brain volume: Normal for age. Ventricles: No hydrocephalus or displacement. Arteries: No density suggestive of thrombus. Dural sinuses: No abnormal density. Extra-axial spaces: No abnormal density. Foramen magnum: No mass, C hiari malformation, or basilar invagination. Sella: No obvious mass. Paranasal/mastoid sinuses: Imaged portions unremarkable. Face CT fin dings: Bones: No acute displaced facial fractures . Again noted degenerat tj changes of the right TMJ. Facial soft tissues: Prominent premandibu lar/symphyseal and parasymphyseal regions soft tissue swelling and hematoma. I nterval resolution of previously seen left premaxillary soft tissues hematoma. Orbits contents: Replacement lenses likely from prior cataract surgery Paranasal sinuses and drainage pathways: Mucosal inflammatory thickening and partial opacification with bubbling appearing material the left sphenoid sinus. Prominent mucosal inflammatory thickening and partial opacification of the left maxillary sinus with few tiny calcifications, as well as thickened/sc lerotic wells related to chronic process.. Nasal septum and nasal caviti es: Mild right posterior deviation with small bone spur Anatomic variat ions: No significant anatomic variations. Teeth: No acute abnormality o f the visualized teeth. Cervical spine CT: Fractures: None. Soft tissue injuries: None. Atlantoaxial articulation: Intact with moderate degenerati ve changes. Unchanged mild asymmetry of the lateral atlantal dental intervals which may be due to advanced degenerative changes and chronic compression of t he left lateral mass of C1. Alignment: Straightened cervical curvature. Approximately 3 mm anterolisthesis of C4 on C5 and 4 mm anterolisthesis of C6 on C7 and change compared to prior study. Cervicomedullary junction: No a bnormalities. The foramen magnum is patent. Soft tissues: No gross acute abnor malities. Vertebrae: No fractures, infection or neoplasm. Degenera tive changes: Moderate degenerative changes at the atlantodental, left C1-C2 lateral mass and right atlantooccipital articulations Multilevel disc deg eneration, moderate from C2 to C4 and severe from C4 to C7. Anterolisthesis of C4 on C5 with associated uncovered disc/disc osteophyte complex results in mi ld canal stenosis. Mild canal stenosis at C5-C6 due to a disc osteophyte compl ex measuring degrees of multilevel moderate to severe facet arthrosis. The lef t C2-C3 and right C3-C4 facets are fused. Multilevel uncovertebral facet arthr osis result in multilevel foraminal stenosis (mild right at C3-C4 moderate lef t and mild right at C4-C5, moderate bilaterally at C5-C6 in mild right at C6-C 7). Incidental findings: Mild scarring at the lung apices. Atherosclero tic calcifications in the carotid siphons. Mild chronic inflammatory changes a t the left mastoid tip. IMPRESSION: Head CT: 1. No acute traumat ic intracranial abnormality, particularly no hemorrhage. 2. Persistent mild c hronic microvascular ischemic changes. Face CT: 1. Large premandibular/sy mphyseal region soft tissue swelling and hematoma. 2. No acute facial fracture s. 3. Chronic inflammatory opacification of the left maxillary sinus, unchange d compared to CT of 01/22/2018. 4. New partial opacification of the left sph enoid sinus. Cervical spine CT: 1. No acute cervical spine fractures or dislocations. 2. Unchanged advanced degenerative changes compared to CT of . 3. Note is made that to post traumatic spinal cord, vascular or lig amentous injury cannot fully be assessed with CT. Signed by: Dr. eWn franks M.D. on 09/09/2018 3:21 PM Dictated By: WEN BOND MD 152 Transcribed By: MAVIS on 09/09/18 1521 COPY TO: ALAN AYALA MD Prothrombin [id number] 14:10:00* Test Item Value Reference Range Interpretation Comments Prothrombin Time (test code = 5902-2) 12.3 11.9-14.5 [facility] Ratio 2018-09-09 14:10:00* Test Item Value Reference Range Interpretation Comments Prothromb Time International Ratio (test code = 6301-6) 0.87 Oral Anticoagulant Therapy INR Values:1. Low Intensity Therapy 1.5 - 2.02 . Moderate Intensity Therapy 2.0 - 3.03. High Intensity Therapy(1) 2.5 - 3. 54. High Intensity Therapy(2) 3.0 - 4.05. Panic Value INR > 5.0 [facility]oplast Time 2018-09-09 14:10:00* Test Item Value Reference Range Interpretation Comments Activated Partial Thromboplast Time (test code = 23181-2) 27.6 23.8-35.5 [facility]- XR CHEST 2 [id number] 17:54:00 FAX: Peggy Davison MD [phone] [place]: O St: PRE FAX: Aba Carbajal [phone] Name: JENNIE,DORIEANDREAS GOMEZ [facility] : 1940 Age/S: 78/F [address] Unit #: [id number] Loc: [place] [address] Phys: Aba Dennis MD Acct: [id number] Dis Date: Status: PRE CLI PHONE #: [phone] Exam Date: 04/24/2018 1747 FAX #: [phone] Reason: I47.1//I47.2 EXAMS: CPT CODE: [id number] XR CHEST 2 V 92746 REASON FOR EXAM: I47.1//I47.2 Exam Order Date: 04/24/2018 5:33 PM Ordering M.DMathew: Aba Dennis MD PROCEDURE: - XR CHEST 2 V COMPARISON: FINDINGS: PA and lateral views of the chest show clear lungs. No evidence of consolidation. No evidence of effusion. The heart size is within normal li mits. Pulmonary vasculatures are unremarkable. The osseous structures are grossly intact. IMPRESSION: No active disease. Elect ronically Signed by Mary Lieberman on 04/24/2018 at 3573 R eported and signed by: Dex Lieberman M.D. CC: Peggy Preciado MD; Anthony Dennis Technologist: Ashlyn Sumner RT(R) Trnscrd Date/Time/By: 04/24/2018 (1955) : By: DeniaL Orig Print D/T: S: 04/24/2018 (1067) PAGE 1 Signed Report CHEST 2 VIEWS 2018-02-11 14:57:00 [place] [address] Patient Name: DENNIS SCHNEIDER MR #: [id number] : 1940 Age/Sex: 77/F Req #: [id number] Adm Physician: Ordered by: SMITH CASTRO MD Report #: [id number] Location: OR Room/Bed: Procedure: 1205-0 067 DX/CHEST 2 VIEWS Exam Date: 02/11/18 Exam Time: 1445 REPORT STATUS: Signed EXAM: XR CHEST 2 VIEWS DATE: 02/11/2018 2:38 PM INDICATION: Preoperative, he matoma COMPARISON: None FINDINGS: Lines and Tubes: None Hear t and Mediastinum: No acute cardiomediastinal findings. Lungs and Pleura: I ll-defined basilar opacities, most notably medial right lung base, likely comb ination of atelectasis and vascular structures. Bones and Soft Tissues: Reynold gical anchors right humeral head. IMPRESSION: 1. No acute cardiopulmona ry findings. Signed by: Dr. Luiz Burns MD on 02/11/2018 2:59 PM Di ctated By: LUIZ BURNS MD 58 COPY TO: SMITH CASTRO MD CT MAXIO FAC/MARYCHUY [id number] 11:17:00 [place] [address] Patient Name: DENNIS SCHNEIDER MR #: [id number] : 05/1940 Age/Sex: 77/F Req #: [id number] Adm Physician: Ordered by: TIAGO WALKER RECRUITMENT CONSULTANT Report #: [id number] Location: ER Room/Bed: Procedure: [address]/CT MAXIO FAC/PARANAS WO Exam Date: 01/22/18 Exam Time: 1030 REPORT STATUS: Sign ed Exams: Head, maxillofacial and cervical spine CTs without IV contrast Hi story: Trauma, fall Comparison studies: None Technique: Axial images we re obtained to the vertex and through the cervical spine and maxilla facial re gion. Coronal and sagittal images reconstructed from the axial data. Dose modu lation, iterative reconstruction, and/or weight based adjustment of the mA/kV was utilized to reduce the radiation dose to as low as reasonably achievable. Intravenous contrast: None Findings: Scalp: No abnormalities. Bon es: No fractures, blastic or lytic lesions. Brain sulci: Mildly prominent b ut age appropriate.. Ventricles: Normal in size and configuration. No hydrocep halus. Parenchyma: No mass, acute hemorrhage or acute or chronic cortica l vascular insults. A few scattered hypodensities in the supratentorial white matter are nonspecific but most compatible with chronic microvascular ischemic changes. Sellar/suprasellar region: No abnormalities Craniocervical darya ction: Patent foramen magnum. No Chiari one malformation. Maxillofacial CT : Soft tissues: Moderate hematoma in the left inferolateral premaxillary soft tissues. Mild reactive changes in the left retromaxillary soft tissues may reflect hematoma or possibly local Bones: A linear lucency along the anterolateral wall of the left maxillary sinus, may represent nondisplaced fracture versus prominent vascular channel. Incidental torus mandibularis. Orbits: Globes: Intact Extra or intraconal abnormalities: None. P aranasal sinuses: Chronic inflammatory changes in the left maxillary sinus whi ch is nearly completely opacified and contains inspissated hyperdense secretio ns which are also partially calcified. 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 Cervical spine CT: Fractures: None. S oft tissue injuries: None. Atlantoaxial articulation: Intact with moderate degenerative changes. There is mild asymmetry of the lateral atlantal dental i ntervals which may be due to advanced degenerative changes. Alignment: St raightened cervical curvature. Approximately 3 mm anterolisthesis of C4 on C5 and 4 mm anterolisthesis of C6 on C7 which may be degenerative in etiology. Cervicomedullary junction: No abnormalities. The foramen magnum is patent. Soft tissues: No gross acute abnormalities. Vertebrae: No fractures, in fection or neoplasm. Degenerative changes: Moderate degenerative changes at the atlantodental, left C1-C2 lateral mass and right atlantooccipital lui culations Multilevel disc degeneration, moderate from C2 to C4 and severe f rom C4 to C7. Anterolisthesis of C4 on C5 with associated uncovered disc/disc osteophyte complex results in mild canal stenosis. Mild canal stenosis at C5-C 6 due to a disc osteophyte complex measuring degrees of multilevel moderate to severe facet arthrosis. The left C2-C3 and right C3-C4 facets are fused. Mult ilevel uncovertebral facet arthrosis result in multilevel foraminal stenosis ( mild right at C3-C4 moderate left and mild right at C4-C5, moderate bilaterall y at C5-C6 in mild right at C6-C7). Incidental findings: Mild scarring at the lung apices. Atherosclerotic calcifications in the carotid siphons. M ild chronic inflammatory changes at the left mastoid tip. IMPRESSION: Head CT: 1. No acute abnormalities. 2. Mild age-appropriate generalized v olume loss. 3. Mild microvascular ischemic changes. Maxillofacial CT: 1. Left mitchell-maxillary soft tissue tissue hematoma. 2. Lucency along the inf erior lateral wall the left maxillary sinus may reflect prominent perivascular channel or less likely nondisplaced fracture. 3. Chronic inflammatory changes in the left maxillary sinus. Mild soft tissue changes in the left retromaxil chiki fat may reflect regional extension of soft tissue hematoma or changes rel ated to sinus disease Cervical spine CT: 1. No cervical spine fracture. 2. Anterolisthesis of C4 on C5 and C6 on C7 are most likely degenerative in etiology. 3. Additional advanced degenerative changes as described. 4. Ca nnot adequately evaluate ligament, spinal cord and or vascular abnormalities o n the basis of this exam. Signed by: Dr. Noemi Rondon M.D. on 01/22/2018 11:47 AM Dictated By: NOEMI RONDON MD 1147 Transcribed By: MAVIS on 01/22/18 1147 C OPY TO: TIAGO WALKER NP CT CERVICAL SPINE [id number] 11:17:00 [place] [address] Patient Name: DENNIS SCHNEIDER MR #: [id number] : 05/1940 Age/Sex: 77/F Req #: [id number] [facility] [place] Physician: Ordered by: TIAGO WALKER NP Report #: [id number] Location: ER Room/Bed: Procedure: 1115- 0012 CT/CT CERVICAL SPINE WO Exam Date: 01/22/18 Alana reddy Time: 1030 REPORT STATUS: Signed Exams: Head, maxillofacial and cervical spine CTs without IV contrast Histo ry: Trauma, fall Comparison studies: None Technique: Axial images were obtained to the vertex and through the cervical spine and maxilla facial regio n. Coronal and sagittal images reconstructed from the axial data. Dose modulat ion, iterative reconstruction, and/or weight based adjustment of the mA/kV was utilized to reduce the radiation dose to as low as reasonably achievable. Intravenous contrast: None Findings: Scalp: No abnormalities. Bones: No fractures, blastic or lytic lesions. Brain sulci: Mildly prominent but age appropriate.. Ventricles: Normal in size and configuration. No hydrocephal us. Parenchyma: No mass, acute hemorrhage or acute or chronic cortical v ascular insults. A few scattered hypodensities in the supratentorial white mat ter are nonspecific but most compatible with chronic microvascular ischemic ch anges. Sellar/suprasellar region: No abnormalities Craniocervical juncti on: Patent foramen magnum. No Chiari one malformation. Maxillofacial CT: Soft tissues: Moderate hematoma in the left inferolateral premaxillary so ft tissues. Mild reactive changes in the left retromaxillary soft tissues m ay reflect hematoma or possibly local Bones: A linear lucency along th e anterolateral wall of the left maxillary sinus, may represent nondisplaced f racture versus prominent vascular channel. Incidental torus mandibularis. Orbits: Globes: Intact Extra or intraconal abnormalities: None. Para nasal sinuses: Chronic inflammatory changes in the left maxillary sinus which is nearly completely opacified and contains inspissated hyperdense secretions which are also partially calcified. 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 Cervical spine CT: Fractures: None. Soft tissue injuries: None. Atlantoaxial articulation: Intact with moderate deg enerative changes. There is mild asymmetry of the lateral atlantal dental inte rvals which may be due to advanced degenerative changes. Alignment: Strai ghtened cervical curvature. Approximately 3 mm anterolisthesis of C4 on C5 and 4 mm anterolisthesis of C6 on C7 which may be degenerative in etiology. Cervicomedullary junction: No abnormalities. The foramen magnum is patent. Sof t tissues: No gross acute abnormalities. Vertebrae: No fractures, infec tion or neoplasm. Degenerative changes: Moderate degenerative changes at the atlantodental, left C1-C2 lateral mass and right atlantooccipital articul ations Multilevel disc degeneration, moderate from C2 to C4 and severe from C4 to C7. Anterolisthesis of C4 on C5 with associated uncovered disc/disc ost eophyte complex results in mild canal stenosis. Mild canal stenosis at C5-C6 d ue to a disc osteophyte complex measuring degrees of multilevel moderate to se cassandra facet arthrosis. The left C2-C3 and right C3-C4 facets are fused. Multile toby uncovertebral facet arthrosis result in multilevel foraminal stenosis (mil d right at C3-C4 moderate left and mild right at C4-C5, moderate bilaterally a t C5-C6 in mild right at C6-C7). Incidental findings: Mild scarring at the lung apices. Atherosclerotic calcifications in the carotid siphons. Mild chronic inflammatory changes at the left mastoid tip. IMPRESSION: He ad CT: 1. No acute abnormalities. 2. Mild age-appropriate generalized volu me loss. 3. Mild microvascular ischemic changes. Maxillofacial CT: 1. Left mitchell-maxillary soft tissue tissue hematoma. 2. Lucency along the inferi or lateral wall the left maxillary sinus may reflect prominent perivascular ch armaan or less likely nondisplaced fracture. 3. Chronic inflammatory changes i n the left maxillary sinus. Mild soft tissue changes in the left retromaxillar y fat may reflect regional extension of soft tissue hematoma or changes relate d to sinus disease Cervical spine CT: 1. No cervical spine fracture. 2 . Anterolisthesis of C4 on C5 and C6 on C7 are most likely degenerative in et iology. 3. Additional advanced degenerative changes as described. 4. Canno t adequately evaluate ligament, spinal cord and or vascular abnormalities on t he basis of this exam. Signed by: Dr. Noemi Rondon M.D. on 01/22/2018 11: 47 AM Dictated By: NOEMI RONDON MD [id number] Transcribed By: MAVIS on 01/22/18 1147 COPY TO: TIAGO WALKER NP CT BRAIN [id number] 11:17:00 [place] [address] Patient Name: DENNIS SCHNEIDER MR #: [id number] : 05/1940 Age/Sex: 77/F Req #: [id number] Adm Physician: Ordered by: TIAGO WALKER RECRUITMENT CONSULTANT Report #: [id number] Location: ER Room/Bed: Procedure: 1115- 0011 CT/CT BRAIN WO Exam Date: 01/22/18 Exam Time: 1 030 REPORT STATUS: Signed Exams: Head, maxillofacial and cervical spine CTs without IV contrast History: Traum a, fall Comparison studies: None Technique: Axial images were obtained to the vertex and through the cervical spine and maxilla facial region. Rani nal and sagittal images reconstructed from the axial data. Dose modulation, it erative reconstruction, and/or weight based adjustment of the mA/kV was utiliz ed to reduce the radiation dose to as low as reasonably achievable. Intraveno us contrast: None Findings: Scalp: No abnormalities. Bones: No fract ures, blastic or lytic lesions. Brain sulci: Mildly prominent but age appro priate.. Ventricles: Normal in size and configuration. No hydrocephalus. Parenchyma: No mass, acute hemorrhage or acute or chronic cortical vascular i nsults. A few scattered hypodensities in the supratentorial white matter are n onspecific but most compatible with chronic microvascular ischemic changes. Sellar/suprasellar region: No abnormalities Craniocervical junction: Patent foramen magnum. No Chiari one malformation. Maxillofacial CT: Soft tissues: Moderate hematoma in the left inferolateral premaxillary soft tissue s. Mild reactive changes in the left retromaxillary soft tissues may reflec t hematoma or possibly local Bones: A linear lucency along the anterol ateral wall of the left maxillary sinus, may represent nondisplaced fracture v ersus prominent vascular channel. Incidental torus mandibularis. Orbits: Globes: Intact Extra or intraconal abnormalities: None. Paranasal sin uses: Chronic inflammatory changes in the left maxillary sinus which is nearly completely opacified and contains inspissated hyperdense secretions which are also partially calcified. 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 Cervical spine CT: Fractures: None. Soft tissue i njuries: None. Atlantoaxial articulation: Intact with moderate degenerative changes. There is mild asymmetry of the lateral atlantal dental intervals whi ch may be due to advanced degenerative changes. Alignment: Straightened c ervical curvature. Approximately 3 mm anterolisthesis of C4 on C5 and 4 mm ant erolisthesis of C6 on C7 which may be degenerative in etiology. Cervicome dullary junction: No abnormalities. The foramen magnum is patent. Soft tissues : No gross acute abnormalities. Vertebrae: No fractures, infection or n eoplasm. Degenerative changes: Moderate degenerative changes at the atla ntodental, left C1-C2 lateral mass and right atlantooccipital articulations Multilevel disc degeneration, moderate from C2 to C4 and severe from C4 to C7. Anterolisthesis of C4 on C5 with associated uncovered disc/disc osteophyte complex results in mild canal stenosis. Mild canal stenosis at C5-C6 due to a disc osteophyte complex measuring degrees of multilevel moderate to severe fa cet arthrosis. The left C2-C3 and right C3-C4 facets are fused. Multilevel unc overtebral facet arthrosis result in multilevel foraminal stenosis [...] microvascular ischemic changes. Maxillofacial CT: 1. Left per i-maxillary soft tissue tissue hematoma. 2. Lucency along the inferior latera l wall the left maxillary sinus may reflect prominent perivascular channel or less likely nondisplaced fracture. 3. Chronic inflammatory changes in the lef t maxillary sinus. Mild soft tissue changes in the left retromaxillary fat may reflect regional extension of soft tissue hematoma or changes related to sinus disease Cervical spine CT: 1. No cervical spine fracture. 2. Pradeep listhesis of C4 on C5 and C6 on C7 are most likely degenerative in etiology. 3. Additional advanced degenerative changes as described. 4. Cannot adequat librado evaluate ligament, spinal cord and or vascular abnormalities on the basis of this exam. Signed by: Dr. Noemi Rondon M.D. on 01/22/2018 11:47 AM Dictated By: NOEMI RONDON MD 114 Transcribed By: MAVIS on 01/22/18 1147 COPY TO: TIAGO CARTER RECRUITMENT CONSULTANT HUMERUS LEFT 2+[id number] 11:11:00 [place] [address] Patient Name: DENNIS SCHNEIDER MR #: [id number] : 05/1940 Age/Sex: 77/F Req #: [id number] Adm Physician: Ordered by: TIAGO WALKER NP Report #: [id number] Location: Room/Bed: Procedure: [id number] 0028 DX/HUMERUS LEFT 2+VIEWS Exam Date: 01/22/18 Alana reddy Time: 1030 REPORT STATUS: Signed PROCEDURE: X-RAY LEFT HUMERUS, TWO OR MORE VIEWS COMPARISON: None. INDICATIONS: LEFT UPPER ARM PAIN FROM FALL FINDINGS: Mild ost eopenia. No acute, displaced fracture or dislocation. No lytic or blastic le scott. Mild widening of the a.c. joint, which measures approximately 6-7 mm. Soft tissues are grossly unremarkable. Visualized portions of the left lung ar e clear. CONCLUSION: No acute displaced fracture or dislocation. Mild widening of the a.c. joint. Correlate for point tenderness. This may be normal, if bilateral. Contralateral shoulder views may be obtained for evalu ation, if clinically indicated. Chris Chacon M.D. Dictated by: Chris Chacon M.D. on 01/22/2018 at 11:11 Electronically approved b y: Chris Chacon M.D. on 01/22/2018 at 11:11 Dictated By : CHRIS CHACON MD 111 1 Transcribed By: DEVEN on 01/22/18 1111 COPY TO: TIAGO WALKER NP
--- NOTE | 2019-10-10 11:47 | Discharge Summary ---
HOSPITAL COURSE: The patient is an 79-year-old female, who came in with small bowel obstruction. The patient has a history of chronic kidney injury. The patient was kept on n.p.o. diet. The patient did not get NG tube. Bowel surgeries were done. A consult with Dr. Portillo was also done. Small bowel obstruction improved. The patient's diet improvised. The patient's acute kidney injury resolved. Creatinine came to baseline. Chronic kidney injury level CKD 3. The patient was discharged home in a stable condition. FINAL DIAGNOSES: 1. Small bowel obstruction. 2. Acute on chronic kidney injury. 3. Dehydration. 4. History of hypertension. For further information, look in the chart. For medications on discharge, look in the medical reconciliation sheet. The patient was seen by Dr. Portillo while in the hospital. MD CHRISTO Mi/MODL /[id number]
== END 2019-09-13 13:02 | disposition home or self-care (01) | DRG 389 ==
LOC: ER 10:04 → ERHOLD 17:51 → MED/SURG2 20:14
PROVIDERS: ADMIT Family Medicine; ATTEND Family Medicine
DX: K56.609 Unspecified intestinal obstruction, unspecified as to partial versus complete obstruction (principal); N17.9 Acute kidney failure, unspecified; I12.9 Hypertensive chronic kidney disease with stage 1 through stage 4 chronic kidney disease, or unspecified chronic kidney disease; N18.3 Chronic kidney disease, stage 3 (moderate); E03.9 Hypothyroidism, unspecified; K21.9 Gastro-esophageal reflux disease without esophagitis; E78.5 Hyperlipidemia, unspecified; Z88.8 Allergy status to other drugs, medicaments and biological substances; M81.0 Age-related osteoporosis without current pathological fracture; Z90.710 Acquired absence of both cervix and uterus; I49.9 Cardiac arrhythmia, unspecified; Z11.59 Encounter for screening for other viral diseases
CPT/HCPCS: 36415; 71045; 74018; 74019; 74176; 80048; 80053; 81001; 82550; 82553; 82948; 83690; 83735; 84443; 84484; 85025; 93005; 99285; J7030; U0002

== ENCOUNTER → 2019-09-17 | Outpatient (CLI) | payer MEDICARE, OTHER ==
--- NOTE | 2019-09-17 14:03 | Diagnostic Imaging Report ---
Renal ultrasound Comparison: None Clinical History: Chronic kidney disease Technique: Sonographic evaluation of the kidneys was performed. Multiple images were submitted for interpretation, using a low-frequency curved transducer. Right kidney: The kidney measures 9.2 x 4.8 x 3.5 cm. The cortical echogenicity is within normal limits. The cortex measures 1.1 cm. There is no evidence of a focal mass. There is no evidence of hydronephrosis. There is no evidence of a shadowing stone. There is no evidence of a cyst. There is no evidence of a perinephric fluid collection. Flow is visualized to the right kidney. Left kidney: The kidney measures 8.9 x 4.9 x 3.4 cm. The cortical echogenicity is slightly increased. The cortex measures 1.2 cm. There is no evidence of a focal mass. There is no evidence of hydronephrosis. There is no evidence of a shadowing stone. There is sonographic evidence of a simple cyst superiorly that measures 1.6 x 1.4 x 1.4 cm. There is no evidence of a perinephric fluid collection. Flow is visualized to the left kidney. Survey images of the bladder demonstrate no abnormality. Postvoid volume is 22.4 cc. Bilateral ureteral jets are seen. Impression: Small bilateral kidneys with no obstruction or mass. Likely medical renal disease. Signed by: Benito Valdivia MD on 09/17/2019 2:00 PM
== END ==
LOC: US 12:34
PROVIDERS: ATTEND Family Medicine
DX: I10 Essential (primary) hypertension (principal); N18.1 Chronic kidney disease, stage 1
CPT/HCPCS: 76770; 76857

== ENCOUNTER → 2021-08-27 | Outpatient (CLI) | payer MEDICARE, OTHER | LOC: DX 11:30 | PROVIDERS: ATTEND Family Medicine | DX: Z13.820 Encounter for screening for osteoporosis (principal); Z78.0 Asymptomatic menopausal state | CPT/HCPCS: 77080 ==

== ENCOUNTER → 2022-12-26 | Outpatient (REF) | payer MEDICARE | LOC: DX 08:33 | PROVIDERS: ATTEND Internal Medicine Gastroenterology | DX: R13.12 Dysphagia, oropharyngeal phase (principal) | CPT/HCPCS: 74220 ==

== ENCOUNTER → 2023-09-12 | Outpatient (REF) | payer MEDICARE, OTHER | LOC: DX 09:40 | PROVIDERS: ATTEND Internal Medicine Rheumatology | DX: M81.0 Age-related osteoporosis without current pathological fracture (principal) | CPT/HCPCS: 77080 ==

== ENCOUNTER → 2023-09-24 | Outpatient (REF) | payer MEDICARE, OTHER | LOC: MAMMO 12:34 | PROVIDERS: ATTEND Family Medicine | DX: Z12.31 Encounter for screening mammogram for malignant neoplasm of breast (principal) | CPT/HCPCS: 77067 ==

== ENCOUNTER 2024-03-16 18:03 | Emergency (ER) | payer MEDICARE, OTHER ==
[~2024-03-16] VITALS: Ht 170.2 cm; Wt 59.0 kg
[2024-03-16 18:12] VITALS: PULSE 70; RESP 15; TEMP 98
[2024-03-16] MEDS ORDERED: CEPHALEXIN500 MG PO (19:56)
[2024-03-16] MEDS: LIDOCAINE 1% W/EPINEPHRINE 20 ML VIAL INJ STA (20:11)
[2024-03-16 20:45] VITALS: BP 143/86; PULSE 72; RESP 17; TEMP 98.2; O2SAT 98
== END 2024-03-16 20:15 | disposition home or self-care (01) ==
LOC: ER 18:08
DX: R58 Hemorrhage, not elsewhere classified (principal); W20.8XXA Other cause of strike by thrown, projected or falling object, initial encounter; Y92.89 Other specified places as the place of occurrence of the external cause; I12.9 Hypertensive chronic kidney disease with stage 1 through stage 4 chronic kidney disease, or unspecified chronic kidney disease; N18.9 Chronic kidney disease, unspecified; E78.5 Hyperlipidemia, unspecified; E03.9 Hypothyroidism, unspecified; K21.9 Gastro-esophageal reflux disease without esophagitis
CPT/HCPCS: 99283

== ENCOUNTER → 2024-09-27 | Outpatient (REF) | payer MEDICARE, OTHER ==
[~2024-09-27] MED LIST changes: +CEPHALEXIN500 MG PO
== END ==
LOC: MAMMO 10:15
PROVIDERS: ATTEND Family Medicine
DX: Z12.31 Encounter for screening mammogram for malignant neoplasm of breast (principal)
CPT/HCPCS: 77067